=== PATIENT | male | born 1965 | race Caucasian/White ===

== ENCOUNTER 2017-03-08 20:02 | Inpatient (IN) | payer OTHER, BC, MEDICAID ==
[2017-03-08] MEDS: NITROGLYCERIN (SL) 0.4 MG TAB SL ×3 (20:38→21:54)
[2017-03-08] MEDS: ASPIRIN 325 MG TAB PO (20:38)
[2017-03-08 20:53] LABS: ADD MAN DIFF? NO
[2017-03-08 20:55] LABS: BASOPHIL # 0.1 10^3/ul (0.0-0.1); EOSINOPHILS # 0.3 10^3/ul (0.0-0.5); EOSINOPHILS % 3.3 % (0.0-7.0); HEMATOCRIT 40.8 % (42.0-52.0); HEMOGLOBIN 12.9 g/dl (14.0-18.0); LYMPHOCYTES # 1.7 10^3/ul (0.8-2.9); LYMPHOCYTES % 16.5 % (15.0-51.0); MEAN CORPUSCULAR HEMOGLOBIN 27.8 pg (29.0-33.0); MEAN CORPUSCULAR HGB CONC 31.6 g/dl (32.0-37.0); MEAN CORPUSCULAR VOLUME 87.9 fl (82.0-101.0); MEAN PLATELET VOLUME 12.1 fl (7.4-10.4); MONOCYTE # 0.5 10^3/ul (0.3-0.9); MONOCYTES % 4.7 % (0.0-11.0); NEUTROPHIL # 7.6 10^3/ul (1.6-7.5); NEUTROPHILS % 74.3 % (39.0-77.0); PLATELET COUNT 219 10^3/UL (140-415); RED BLOOD COUNT 4.64 10^6/ul (4.70-6.10); RED CELL DISTRIBUTION WIDTH 15.9 % (11.5-14.5)
[2017-03-08 20:55] LABS: WHITE BLOOD COUNT 10.2 10^3/ul (4.8-10.8)
[2017-03-08 21:09] LABS: INR 0.97
[2017-03-08 21:10] LABS: PARTIAL THROMBOPLASTIN TIME 37.5 Sec (25.0-35.0)
[2017-03-08 21:13] LABS: ANION GAP 12 (8-16); BLOOD UREA NITROGEN 46 mg/dl (7-20); CALCIUM 7.9 mg/dl (8.4-10.2); CARBON DIOXIDE 30 mmol/L (21-31); CHLORIDE 98 mmol/L (97-110); CREATININE 3.48 mg/dl (0.61-1.24); GLUCOSE 256 mg/dl (70-220); LIPASE 379 U/L (23-300); POTASSIUM 4.6 mmol/L (3.5-5.1); SODIUM 135 mmol/L (135-144)
[2017-03-08 21:25] LABS: B-TYPE NATRIURETIC PEPTIDE 10700 PG/ML (0-125); TROPONIN-I 0.073 ng/ml (0.00-0.12)
[2017-03-08] MEDS ORDERED: ACETAMINOPHEN 325 MG TAB PO (22:00)
[2017-03-08] MEDS: FUROSEMIDE 40 MG INJ IV (23:10)
[2017-03-09] MEDS ORDERED: NITROGLYCERIN (SL) 0.4 MG TAB SL (02:30)
[2017-03-09] MEDS ORDERED: ONDANSETRON 4 MG INJ IV (02:30)
[2017-03-09] MEDS ORDERED: ALBUTEROL/IPRATROPIUM (NEB) 3 ML AMP HHN (02:30)
[2017-03-09] MEDS ORDERED: NACL 0.9% 3 ML SYG IV (02:30)
[2017-03-09] MEDS: PIPER-TAZO 2.25 GM (PMX) 50 ML IVPB ×3 (03:00→21:14)
[2017-03-09 03:10] LABS: CREATINE KINASE 119 IU/L (23-200)
[2017-03-09 03:21] LABS: CK INDEX 2.7; TROPONIN-I 0.079 ng/ml (0.00-0.12)
[2017-03-09 03:28] LABS: CK-MB 3.26 ng/ml (0.0-2.4)
[2017-03-09] MEDS: ONDANSETRON 4 MG INJ IV (03:44)
[2017-03-09] MEDS: morphine 2 MG INJ IV (03:44)
[2017-03-09] MEDS ORDERED: MAGNESIUM SULFATE 2 GM/50 ML 50 ML (05:23)
[2017-03-09 05:46] LABS: AADO2 Arterial 505.8 mmHg (7.0-24.0); Allen Test ACCEPTAB; Arterial Base Excess -1.6 mmol/L (-3.0-3); Arterial Blood Gas Oxygen Sat 79.5 mmHG (95.0-98.0); Arterial COHb 2.5 % (0.0-3.0); Arterial Fraction of Oxyhgb 77.4 % (93.0-99.0); Arterial MetHb 0.2 % (0.0-1.5); Arterial Total Hemglobin 15.5 g/dl (12.0-18.0); Arterial pCO2 147.7 mmhg (35-45); MODE AMBU BAG
[2017-03-09] MEDS ORDERED: NA BICARBONATE 8.4% 50 ML SYG ×3 (05:54→16:00)
[2017-03-09] MEDS ORDERED: GLUCOSE GEL 15 GRAM TUBE BUCCAL (06:00)
[2017-03-09] MEDS ORDERED: GLUCAGON 1 MG INJ IM (06:00)
[2017-03-09] MEDS ORDERED: FUROSEMIDE 40 MG INJ IV (06:00)
[2017-03-09] MEDS ORDERED: GLUCOSE GEL 15 GRAM TUBE PO ×2 (06:00)
[2017-03-09] MEDS ORDERED: DEXTROSE 50% 50 ML SYRINGE IV ×2 (06:00)
[2017-03-09 06:27] LABS: ADD MAN DIFF? NO
[2017-03-09] MEDS: NA BICARBONATE 8.4% 50 ML SYG IV (06:38)
[2017-03-09 06:44] LABS: BASOPHIL # 0.1 10^3/ul (0.0-0.1); BASOPHILS % 0.9 % (0.0-2.0); EOSINOPHILS # 0.3 10^3/ul (0.0-0.5); EOSINOPHILS % 2.6 % (0.0-7.0); HEMATOCRIT 41.9 % (42.0-52.0); HEMOGLOBIN 13.1 g/dl (14.0-18.0); LYMPHOCYTES # 2.2 10^3/ul (0.8-2.9); LYMPHOCYTES % 17.3 % (15.0-51.0); MEAN CORPUSCULAR HEMOGLOBIN 28.7 pg (29.0-33.0); MEAN CORPUSCULAR HGB CONC 31.3 g/dl (32.0-37.0); MEAN CORPUSCULAR VOLUME 91.9 fl (82.0-101.0); MONOCYTE # 0.5 10^3/ul (0.3-0.9); MONOCYTES % 3.8 % (0.0-11.0); NEUTROPHILS % 71.6 % (39.0-77.0); NUCLEATED RED BLOOD CELLS% 0.3 /100WBC (0.0-0.0); PLATELET COUNT 259 10^3/UL (140-415); RED BLOOD COUNT 4.56 10^6/ul (4.70-6.10); RED CELL DISTRIBUTION WIDTH 15.7 % (11.5-14.5)
[2017-03-09 06:44] LABS: WHITE BLOOD COUNT 12.5 10^3/ul (4.8-10.8)
[2017-03-09 06:45] LABS: AADO2 Arterial 570.1 mmHg (7.0-24.0); Allen Test ACCEPTAB; Arterial Base Excess 1.6 mmol/L (-3.0-3); Arterial Blood Gas Oxygen Sat 86.8 mmHG (95.0-98.0); Arterial COHb 2.2 % (0.0-3.0); Arterial Fraction of Oxyhgb 84.7 % (93.0-99.0); Arterial HCO3 32.4 mmol/L (22.0-26.0); Arterial MetHb 0.2 % (0.0-1.5); Arterial Total Hemglobin 14.1 g/dl (12.0-18.0); Arterial pCO2 84.6 mmhg (35-45); MODE VENT - AC; Site Right Radial
[2017-03-09 07:15] LABS: ALANINE AMINOTRANSFERASE 56 IU/L (13-69); ALBUMIN 2.4 g/dl (3.3-4.9); ALBUMIN/GLOBULIN RATIO 0.92; ALKALINE PHOSPHATASE 66 IU/L (42-121); ANION GAP 15 (8-16); ASPARTATE AMINO TRANSFERASE 59 IU/L (15-46); BILIRUBIN,INDIRECT 0.3 mg/dl (0-1.1); BILIRUBIN,TOTAL 0.3 mg/dl (0.2-1.3); BLOOD UREA NITROGEN 45 mg/dl (7-20); CALCIUM 7.8 mg/dl (8.4-10.2); CARBON DIOXIDE 35 mmol/L (21-31); CHLORIDE 98 mmol/L (97-110); CREATININE 3.66 mg/dl (0.61-1.24); GLUCOSE 249 mg/dl (70-220); MAGNESIUM 2.8 mg/dl (1.7-2.5); POTASSIUM 3.9 mmol/L (3.5-5.1); SODIUM 144 mmol/L (135-144)
[2017-03-09 07:25] LABS: TROPONIN-I 0.262 ng/ml (0.00-0.12)
[2017-03-09 07:43] LABS: LIPASE 391 U/L (23-300)
[2017-03-09] MEDS ORDERED: PROPOFOL 100 ML (07:52)
[2017-03-09] MEDS: PROPOFOL 100 ML IV ×3 (09:03→21:14)
[2017-03-09] MEDS: FAMOTIDINE 20 MG INJ IV (09:04)
[2017-03-09] MEDS: ASPIRIN (EC) 81 MG TAB PO (09:04)
[2017-03-09] MEDS ORDERED: NORepinephrine 8MG/250 ML (PMX 250 ML (09:30)
[2017-03-09 09:57] LABS: CREATINE KINASE 136 IU/L (23-200)
[2017-03-09] MEDS: NORepinephrine 8MG/250 ML (PMX 250 ML IV (10:01)
[2017-03-09 10:09] LABS: CK INDEX 4.7
[2017-03-09 10:17] LABS: CK-MB 6.37 ng/ml (0.0-2.4); TROPONIN-I 0.882 ng/ml (0.00-0.12)
[2017-03-09 10:57] LABS: HEMOGLOBIN A1C 7.4 % (0-5.9)
[2017-03-09 12:35] LABS: AADO2 Arterial 510.4 mmHg (7.0-24.0); Allen Test ACCEPTAB; Arterial Base Excess 4.9 mmol/L (-3.0-3); Arterial Blood Gas Oxygen Sat 94.3 mmHG (95.0-98.0); Arterial COHb 1.1 % (0.0-3.0); Arterial Fraction of Oxyhgb 93.2 % (93.0-99.0); Arterial HCO3 32.2 mmol/L (22.0-26.0); Arterial MetHb 0.1 % (0.0-1.5); Arterial Total Hemglobin 14.1 g/dl (12.0-18.0); Arterial pCO2 59.2 mmhg (35-45); MODE VENT - AC; Site Right Radial
[2017-03-09] MEDS: INSULIN ASPART [NOVOLOG] 3 ML PEN SC ×3 (13:44→21:00)
[2017-03-09] MEDS ORDERED: EPINEPHrine 0.1 MG/ML SYG (16:00)
[2017-03-09 16:53] LABS: HAAIG REFLEX REFLEX FILED
[2017-03-09 17:07] LABS: CREATININE,URINE RANDOM 25.53 mg/dl (20-370)
[2017-03-09 17:07] LABS: SODIUM,URINE RANDOM 140 mmol/L (30-90)
[2017-03-09 18:02] LABS: HEPATITIS B SURFACE ANTIGEN NEGATIVE (NEGATIVE)
[2017-03-09 18:20] LABS: HEPATITIS B CORE ANTIBODY NEGATIVE (NEGATIVE); HEPATITIS C VIRAL ANTIBODY NEGATIVE (NEGATIVE)
[2017-03-09] MEDS: FUROSEMIDE 40 MG INJ IV (18:59)
[2017-03-09 20:13] LABS: CREATININE,URINE RANDOM 25.59 mg/dl (20-370)
[2017-03-09 20:47] LABS: PROTEIN URINE > 600.0 mg/dl (0.0-11.9); PROTEIN/CREAT RATIO 23.44 RATIO
[2017-03-09] MEDS: ATORVASTATIN 80 MG TAB PO (21:14)
[2017-03-09] MEDS: INSULIN GLARGINE [LANtus] 3 ML PEN SC (21:31)
[2017-03-10] MEDS: INSULIN ASPART [NOVOLOG] 3 ML PEN SC ×6 (01:28→21:00)
[2017-03-10] MEDS: FUROSEMIDE 20 MG INJ IV (01:34)
[2017-03-10] MEDS: ALBUMIN HUMAN 25% 100 ML IV (01:34)
[2017-03-10] MEDS: PROPOFOL 100 ML IV ×6 (02:33→23:35)
[2017-03-10 05:30] LABS: ADD MAN DIFF? NO
[2017-03-10] MEDS: PIPER-TAZO 2.25 GM (PMX) 50 ML IVPB ×3 (05:33→21:45)
[2017-03-10 05:46] LABS: WHITE BLOOD COUNT 10.9 10^3/ul (4.8-10.8)
[2017-03-10 05:46] LABS: BASOPHIL # 0.1 10^3/ul (0.0-0.1); BASOPHILS % 0.7 % (0.0-2.0); EOSINOPHILS # 0.1 10^3/ul (0.0-0.5); EOSINOPHILS % 0.8 % (0.0-7.0); HEMATOCRIT 35.6 % (42.0-52.0); HEMOGLOBIN 11.2 g/dl (14.0-18.0); LYMPHOCYTES # 1.8 10^3/ul (0.8-2.9); LYMPHOCYTES % 16.8 % (15.0-51.0); MEAN CORPUSCULAR HGB CONC 31.5 g/dl (32.0-37.0); MONOCYTE # 0.7 10^3/ul (0.3-0.9); MONOCYTES % 6.1 % (0.0-11.0); NEUTROPHIL # 8.2 10^3/ul (1.6-7.5); NEUTROPHILS % 75.2 % (39.0-77.0); PLATELET COUNT 205 10^3/UL (140-415)
[2017-03-10 06:23] LABS: ANION GAP 13 (8-16); BLOOD UREA NITROGEN 67 mg/dl (7-20); CALCIUM 7.8 mg/dl (8.4-10.2); CARBON DIOXIDE 30 mmol/L (21-31); CHLORIDE 101 mmol/L (97-110); CREATININE 6.08 mg/dl (0.61-1.24); GLUCOSE 136 mg/dl (70-220); MAGNESIUM 2.5 mg/dl (1.7-2.5); PHOSPHORUS 6.1 mg/dl (2.5-4.9); POTASSIUM 4.3 mmol/L (3.5-5.1); SODIUM 140 mmol/L (135-144)
[2017-03-10] MEDS: FAMOTIDINE 20 MG INJ IV (08:45)
[2017-03-10] MEDS: ASPIRIN (EC) 81 MG TAB PO (08:45)
[2017-03-10] MEDS ORDERED: METHYLPREDNISOLONE 125 MG INJ IM (11:00)
[2017-03-10] MEDS: HEPARIN 1000 UNITS/ML 10 ML INJ CATHETER (11:59)
[2017-03-10 15:20] LABS: AADO2 Arterial 245.1 mmHg (7.0-24.0); Allen Test ACCEPTAB; Arterial Base Excess 4.5 mmol/L (-3.0-3); Arterial Blood Gas Oxygen Sat 91.3 mmHG (95.0-98.0); Arterial COHb 0.8 % (0.0-3.0); Arterial Fraction of Oxyhgb 90.5 % (93.0-99.0); Arterial HCO3 29.3 mmol/L (22.0-26.0); Arterial MetHb 0.1 % (0.0-1.5); Arterial Total Hemglobin 15.1 g/dl (12.0-18.0); Arterial pCO2 44.1 mmhg (35-45); MODE VENT - AC; Site Right Radial
[2017-03-10] MEDS ORDERED: ETOMIDATE 20 MG INJ (16:00)
[2017-03-10] MEDS: ACCU-CHEK XX (20:03)
[2017-03-10] MEDS: LACTATED RINGER'S 1,000 ML IV (21:03)
[2017-03-10] MEDS: ATORVASTATIN 80 MG TAB PO (21:42)
[2017-03-10] MEDS: INSULIN GLARGINE [LANtus] 3 ML PEN SC (21:44)
[2017-03-11] MEDS: INSULIN ASPART [NOVOLOG] 3 ML PEN SC ×6 (01:00→23:58)
[2017-03-11] MEDS: ACCU-CHEK XX ×2 (01:03→22:05)
[2017-03-11] MEDS: PROPOFOL 100 ML IV ×7 (04:46→23:59)
[2017-03-11] MEDS: PIPER-TAZO 2.25 GM (PMX) 50 ML IVPB ×3 (05:30→22:08)
[2017-03-11 05:55] LABS: ADD MAN DIFF? NO; HAAIG REFLEX REFLEX FILED
[2017-03-11 06:20] LABS: WHITE BLOOD COUNT 9.8 10^3/ul (4.8-10.8)
[2017-03-11 06:20] LABS: BASOPHIL # 0.1 10^3/ul (0.0-0.1); BASOPHILS % 0.7 % (0.0-2.0); EOSINOPHILS # 0.5 10^3/ul (0.0-0.5); HEMATOCRIT 34.6 % (42.0-52.0); HEMOGLOBIN 11.1 g/dl (14.0-18.0); LYMPHOCYTES # 1.6 10^3/ul (0.8-2.9); LYMPHOCYTES % 16.3 % (15.0-51.0); MEAN CORPUSCULAR HEMOGLOBIN 28.5 pg (29.0-33.0); MEAN CORPUSCULAR HGB CONC 32.1 g/dl (32.0-37.0); MEAN CORPUSCULAR VOLUME 88.9 fl (82.0-101.0); MEAN PLATELET VOLUME 12.6 fl (7.4-10.4); MONOCYTE # 0.7 10^3/ul (0.3-0.9); MONOCYTES % 6.9 % (0.0-11.0); NEUTROPHIL # 6.9 10^3/ul (1.6-7.5); NEUTROPHILS % 70.7 % (39.0-77.0); PLATELET COUNT 177 10^3/UL (140-415); RED BLOOD COUNT 3.89 10^6/ul (4.70-6.10); RED CELL DISTRIBUTION WIDTH 16.2 % (11.5-14.5)
[2017-03-11 07:02] LABS: ALANINE AMINOTRANSFERASE 38 IU/L (13-69); ALBUMIN 2.7 g/dl (3.3-4.9); ALBUMIN/GLOBULIN RATIO 1.03; ALKALINE PHOSPHATASE 49 IU/L (42-121); ANION GAP 16 (8-16); ASPARTATE AMINO TRANSFERASE 15 IU/L (15-46); BILIRUBIN,INDIRECT 0.3 mg/dl (0-1.1); BILIRUBIN,TOTAL 0.3 mg/dl (0.2-1.3); BLOOD UREA NITROGEN 67 mg/dl (7-20); CALCIUM 8.2 mg/dl (8.4-10.2); CARBON DIOXIDE 27 mmol/L (21-31); CHLORIDE 103 mmol/L (97-110); CREATININE 7.38 mg/dl (0.61-1.24); GLUCOSE 102 mg/dl (70-220); POTASSIUM 3.9 mmol/L (3.5-5.1); SODIUM 142 mmol/L (135-144); TOTAL PROTEIN 5.3 g/dl (6.1-8.1)
[2017-03-11 07:06] LABS: ADD UMIC YES; UR AMORPHOUS CRYSTAL FEW /HPF (NONE SEEN); UR ASCORBIC ACID NEGATIVE (NEGATIVE); UR BACTERIA FEW /HPF (NONE SEEN); UR BILIRUBIN (Dip) NEGATIVE (NEGATIVE); UR BLOOD (Dip) 3+ mg/dL (NEGATIVE); UR CLARITY CLOUDY (CLEAR); UR COLOR YELLOW (YELLOW); UR GLUCOSE (Dip) 1+ mg/dL (NEGATIVE); UR KETONES (Dip) NEGATIVE (NEGATIVE); UR LEUKOCYTE ESTERASE (Dip) 3+ Leu/ul (NEGATIVE); UR NITRITE (Dip) NEGATIVE (NEGATIVE); UR NONSQUAMOUS EPITHELIAL CELL 1 /HPF (NONE SEEN); UR RBC 132 /HPF (0-5); UR SPECIFIC GRAVITY (Dip) 1.013 (1.003-1.030); UR TOTAL PROTEIN (Dip) 3+ mg/dl (NEGATIVE); UR UROBILINOGEN (Dip) NEGATIVE (NEGATIVE); UR WBC > 182 /HPF (0-5)
[2017-03-11 07:34] LABS: HEPATITIS B SURFACE ANTIGEN NEGATIVE (NEGATIVE)
[2017-03-11 07:52] LABS: HEPATITIS B CORE ANTIBODY NEGATIVE (NEGATIVE); HEPATITIS C VIRAL ANTIBODY NEGATIVE (NEGATIVE)
[2017-03-11] MEDS: FAMOTIDINE 20 MG INJ IV (08:17)
[2017-03-11] MEDS: ASPIRIN (EC) 81 MG TAB PO (08:18)
[2017-03-11 10:24] LABS: Allen Test ACCEPTAB; Arterial Base Excess 3.4 mmol/L (-3.0-3); Arterial Blood Gas Oxygen Sat 95.3 mmHG (95.0-98.0); Arterial COHb 0.4 % (0.0-3.0); Arterial Fraction of Oxyhgb 94.8 % (93.0-99.0); Arterial HCO3 28.3 mmol/L (22.0-26.0); Arterial MetHb 0.1 % (0.0-1.5); Arterial Total Hemglobin 13.3 g/dl (12.0-18.0); Arterial pCO2 44.2 mmhg (35-45); MODE VENT - AC; Site Right Radial
[2017-03-11] MEDS: ATORVASTATIN 80 MG TAB PO (20:19)
[2017-03-11] MEDS: FAMOTIDINE 20 MG TAB NGT (20:19)
[2017-03-11] MEDS: INSULIN GLARGINE [LANtus] 3 ML PEN SC (20:22)
[2017-03-12] MEDS: PROPOFOL 100 ML IV ×5 (03:37→21:34)
[2017-03-12] MEDS: PIPER-TAZO 2.25 GM (PMX) 50 ML IVPB ×3 (05:52→21:21)
[2017-03-12] MEDS: INSULIN ASPART [NOVOLOG] 3 ML PEN SC ×4 (05:56→23:50)
[2017-03-12 06:59] LABS: ADD MAN DIFF? NO
[2017-03-12 07:05] LABS: BASOPHIL # 0.1 10^3/ul (0.0-0.1); BASOPHILS % 0.9 % (0.0-2.0); EOSINOPHILS # 0.5 10^3/ul (0.0-0.5); EOSINOPHILS % 6.1 % (0.0-7.0); HEMATOCRIT 33.6 % (42.0-52.0); HEMOGLOBIN 10.6 g/dl (14.0-18.0); LYMPHOCYTES # 1.2 10^3/ul (0.8-2.9); LYMPHOCYTES % 14.3 % (15.0-51.0); MEAN CORPUSCULAR HEMOGLOBIN 27.9 pg (29.0-33.0); MEAN CORPUSCULAR HGB CONC 31.5 g/dl (32.0-37.0); MEAN CORPUSCULAR VOLUME 88.4 fl (82.0-101.0); MEAN PLATELET VOLUME 12.1 fl (7.4-10.4); MONOCYTE # 0.6 10^3/ul (0.3-0.9); MONOCYTES % 6.8 % (0.0-11.0); NEUTROPHIL # 6.2 10^3/ul (1.6-7.5); NEUTROPHILS % 71.7 % (39.0-77.0); PLATELET COUNT 166 10^3/UL (140-415); RED CELL DISTRIBUTION WIDTH 16.4 % (11.5-14.5)
[2017-03-12 07:05] LABS: WHITE BLOOD COUNT 8.7 10^3/ul (4.8-10.8)
[2017-03-12 09:01] LABS: ALANINE AMINOTRANSFERASE 36 IU/L (13-69); ALBUMIN 2.6 g/dl (3.3-4.9); ALBUMIN/GLOBULIN RATIO 0.89; ALKALINE PHOSPHATASE 66 IU/L (42-121); ANION GAP 18 (8-16); ASPARTATE AMINO TRANSFERASE 11 IU/L (15-46); BILIRUBIN,INDIRECT 0.2 mg/dl (0-1.1); BILIRUBIN,TOTAL 0.2 mg/dl (0.2-1.3); BLOOD UREA NITROGEN 64 mg/dl (7-20); CALCIUM 8.1 mg/dl (8.4-10.2); CARBON DIOXIDE 26 mmol/L (21-31); CHLORIDE 101 mmol/L (97-110); CREATININE 9.28 mg/dl (0.61-1.24); GLUCOSE 87 mg/dl (70-220); POTASSIUM 3.9 mmol/L (3.5-5.1); SODIUM 141 mmol/L (135-144); TOTAL PROTEIN 5.5 g/dl (6.1-8.1)
[2017-03-12] MEDS: FAMOTIDINE 20 MG TAB NGT ×2 (10:15→20:54)
[2017-03-12] MEDS: ASPIRIN (EC) 81 MG TAB PO (10:15)
[2017-03-12 10:50] LABS: AADO2 Arterial 169.7 mmHg (7.0-24.0); Allen Test ACCEPTAB; Arterial Base Excess -0.1 mmol/L (-3.0-3); Arterial Blood Gas Oxygen Sat 94.3 mmHG (95.0-98.0); Arterial COHb 0.1 % (0.0-3.0); Arterial Fraction of Oxyhgb 94.1 % (93.0-99.0); Arterial MetHb 0.1 % (0.0-1.5); Arterial Total Hemglobin 11.6 g/dl (12.0-18.0); Arterial pCO2 37.1 mmhg (35-45); MODE VENT - AC; Site Right Radial
[2017-03-12] MEDS: ATORVASTATIN 80 MG TAB PO (20:54)
[2017-03-12] MEDS: INSULIN GLARGINE [LANtus] 3 ML PEN SC (21:26)
[2017-03-13] MEDS: PROPOFOL 100 ML IV ×6 (01:32→23:44)
[2017-03-13] MEDS: ACCU-CHEK XX (02:00)
[2017-03-13] MEDS: PIPER-TAZO 2.25 GM (PMX) 50 ML IVPB ×3 (05:23→21:05)
[2017-03-13] MEDS: INSULIN ASPART [NOVOLOG] 3 ML PEN SC ×4 (05:27→20:49)
[2017-03-13 05:49] LABS: ADD MAN DIFF? NO
[2017-03-13 06:09] LABS: BASOPHIL # 0.1 10^3/ul (0.0-0.1); EOSINOPHILS # 0.5 10^3/ul (0.0-0.5); EOSINOPHILS % 6.3 % (0.0-7.0); HEMATOCRIT 33.1 % (42.0-52.0); HEMOGLOBIN 10.4 g/dl (14.0-18.0); LYMPHOCYTES # 1.6 10^3/ul (0.8-2.9); LYMPHOCYTES % 21.8 % (15.0-51.0); MEAN CORPUSCULAR HEMOGLOBIN 28.2 pg (29.0-33.0); MEAN CORPUSCULAR HGB CONC 31.4 g/dl (32.0-37.0); MEAN CORPUSCULAR VOLUME 89.7 fl (82.0-101.0); MEAN PLATELET VOLUME 12.3 fl (7.4-10.4); MONOCYTE # 0.6 10^3/ul (0.3-0.9); MONOCYTES % 8.3 % (0.0-11.0); NEUTROPHIL # 4.5 10^3/ul (1.6-7.5); NEUTROPHILS % 62.3 % (39.0-77.0); PLATELET COUNT 164 10^3/UL (140-415); RED BLOOD COUNT 3.69 10^6/ul (4.70-6.10)
[2017-03-13 06:09] LABS: WHITE BLOOD COUNT 7.3 10^3/ul (4.8-10.8)
[2017-03-13 06:17] LABS: ALANINE AMINOTRANSFERASE 33 IU/L (13-69); ALBUMIN 2.8 g/dl (3.3-4.9); ALBUMIN/GLOBULIN RATIO 1.03; ALKALINE PHOSPHATASE 65 IU/L (42-121); ANION GAP 22 (8-16); ASPARTATE AMINO TRANSFERASE 12 IU/L (15-46); BLOOD UREA NITROGEN 81 mg/dl (7-20); CALCIUM 7.6 mg/dl (8.4-10.2); CARBON DIOXIDE 25 mmol/L (21-31); CHLORIDE 101 mmol/L (97-110); CREATININE 11.41 mg/dl (0.61-1.24); GLUCOSE 70 mg/dl (70-220); POTASSIUM 4.6 mmol/L (3.5-5.1); SODIUM 143 mmol/L (135-144); TOTAL PROTEIN 5.5 g/dl (6.1-8.1)
[2017-03-13] MEDS: ASPIRIN (EC) 81 MG TAB PO (09:20)
[2017-03-13] MEDS: FAMOTIDINE 20 MG TAB NGT (09:20)
[2017-03-13 14:38] LABS: AADO2 Arterial 372.6 mmHg (7.0-24.0); Allen Test ACCEPTAB; Arterial Base Excess -4.4 mmol/L (-3.0-3); Arterial Blood Gas Oxygen Sat 94.2 mmHG (95.0-98.0); Arterial COHb 0.3 % (0.0-3.0); Arterial Fraction of Oxyhgb 93.8 % (93.0-99.0); Arterial HCO3 21.6 mmol/L (22.0-26.0); Arterial MetHb 0.1 % (0.0-1.5); Arterial Total Hemglobin 11.8 g/dl (12.0-18.0); Arterial pCO2 43.2 mmhg (35-45); MODE VENT - AC; Site Right Radial
[2017-03-13] MEDS: LOSARTAN 50 MG TAB NGT (18:38)
[2017-03-13] MEDS: ATORVASTATIN 80 MG TAB PO (20:46)
[2017-03-13] MEDS: INSULIN GLARGINE [LANtus] 3 ML PEN SC (20:52)
[2017-03-14] MEDS: INSULIN ASPART [NOVOLOG] 3 ML PEN SC ×6 (01:00→20:25)
[2017-03-14] MEDS: ACCU-CHEK XX (01:30)
[2017-03-14] MEDS: PROPOFOL 100 ML IV ×4 (03:39→19:50)
[2017-03-14 05:47] LABS: ADD MAN DIFF? NO
[2017-03-14] MEDS: PIPER-TAZO 2.25 GM (PMX) 50 ML IVPB ×3 (05:50→21:39)
[2017-03-14 05:58] LABS: BASOPHIL # 0.1 10^3/ul (0.0-0.1); EOSINOPHILS # 0.5 10^3/ul (0.0-0.5); EOSINOPHILS % 7.1 % (0.0-7.0); HEMATOCRIT 32.4 % (42.0-52.0); HEMOGLOBIN 10.4 g/dl (14.0-18.0); LYMPHOCYTES # 0.9 10^3/ul (0.8-2.9); LYMPHOCYTES % 12.9 % (15.0-51.0); MEAN CORPUSCULAR HEMOGLOBIN 28.2 pg (29.0-33.0); MEAN CORPUSCULAR HGB CONC 32.1 g/dl (32.0-37.0); MEAN CORPUSCULAR VOLUME 87.8 fl (82.0-101.0); MEAN PLATELET VOLUME 12.1 fl (7.4-10.4); MONOCYTE # 0.6 10^3/ul (0.3-0.9); MONOCYTES % 8.9 % (0.0-11.0); NEUTROPHIL # 5.1 10^3/ul (1.6-7.5); NEUTROPHILS % 69.7 % (39.0-77.0); PLATELET COUNT 160 10^3/UL (140-415); RED BLOOD COUNT 3.69 10^6/ul (4.70-6.10); RED CELL DISTRIBUTION WIDTH 15.8 % (11.5-14.5)
[2017-03-14 05:58] LABS: WHITE BLOOD COUNT 7.2 10^3/ul (4.8-10.8)
[2017-03-14 06:41] LABS: ANION GAP 20 (8-16); BLOOD UREA NITROGEN 73 mg/dl (7-20); CALCIUM 7.7 mg/dl (8.4-10.2); CARBON DIOXIDE 27 mmol/L (21-31); CHLORIDE 93 mmol/L (97-110); CREATININE 11.15 mg/dl (0.61-1.24); GLUCOSE 117 mg/dl (70-220); POTASSIUM 4.5 mmol/L (3.5-5.1); SODIUM 135 mmol/L (135-144)
[2017-03-14] MEDS: FAMOTIDINE 20 MG TAB NGT (09:02)
[2017-03-14] MEDS: ASPIRIN (EC) 81 MG TAB PO (09:03)
[2017-03-14] MEDS: LOSARTAN 50 MG TAB NGT (09:03)
[2017-03-14] MEDS: ATORVASTATIN 80 MG TAB PO (20:16)
[2017-03-14] MEDS: INSULIN GLARGINE [LANtus] 3 ML PEN SC (20:24)
[2017-03-15] MEDS: PROPOFOL 100 ML IV ×5 (00:14→22:43)
[2017-03-15] MEDS: INSULIN ASPART [NOVOLOG] 3 ML PEN SC ×6 (00:42→20:41)
[2017-03-15] MEDS: ACCU-CHEK XX (02:00)
[2017-03-15] MEDS: PIPER-TAZO 2.25 GM (PMX) 50 ML IVPB ×3 (05:26→22:29)
[2017-03-15 05:31] LABS: ADD MAN DIFF? NO
[2017-03-15 05:36] LABS: WHITE BLOOD COUNT 7.5 10^3/ul (4.8-10.8)
[2017-03-15 05:36] LABS: BASOPHILS % 0.5 % (0.0-2.0); EOSINOPHILS # 0.4 10^3/ul (0.0-0.5); EOSINOPHILS % 5.3 % (0.0-7.0); HEMATOCRIT 32.1 % (42.0-52.0); HEMOGLOBIN 10.4 g/dl (14.0-18.0); LYMPHOCYTES # 1.1 10^3/ul (0.8-2.9); MEAN CORPUSCULAR HGB CONC 32.4 g/dl (32.0-37.0); MEAN CORPUSCULAR VOLUME 86.5 fl (82.0-101.0); MEAN PLATELET VOLUME 12.2 fl (7.4-10.4); MONOCYTE # 0.7 10^3/ul (0.3-0.9); MONOCYTES % 9.2 % (0.0-11.0); NEUTROPHIL # 5.3 10^3/ul (1.6-7.5); NEUTROPHILS % 70.7 % (39.0-77.0); PLATELET COUNT 183 10^3/UL (140-415); RED BLOOD COUNT 3.71 10^6/ul (4.70-6.10); RED CELL DISTRIBUTION WIDTH 15.6 % (11.5-14.5)
[2017-03-15 06:39] LABS: ALANINE AMINOTRANSFERASE 33 IU/L (13-69); ALKALINE PHOSPHATASE 75 IU/L (42-121); ANION GAP 20 (8-16); ASPARTATE AMINO TRANSFERASE 36 IU/L (15-46); BLOOD UREA NITROGEN 76 mg/dl (7-20); CALCIUM 7.6 mg/dl (8.4-10.2); CARBON DIOXIDE 27 mmol/L (21-31); CHLORIDE 93 mmol/L (97-110); CREATININE 11.83 mg/dl (0.61-1.24); GLUCOSE 121 mg/dl (70-220); POTASSIUM 4.4 mmol/L (3.5-5.1); SODIUM 136 mmol/L (135-144)
[2017-03-15 08:19] LABS: AADO2 Arterial 374.5 mmHg (7.0-24.0); Allen Test ACCEPTAB; Arterial Base Excess -0.4 mmol/L (-3.0-3); Arterial Blood Gas Oxygen Sat 94.3 mmHG (95.0-98.0); Arterial COHb 0.3 % (0.0-3.0); Arterial Fraction of Oxyhgb 93.9 % (93.0-99.0); Arterial MetHb 0.1 % (0.0-1.5); Arterial Total Hemglobin 11.8 g/dl (12.0-18.0); Arterial pCO2 44.2 mmhg (35-45); MODE VENT - AC; Site Right Radial
[2017-03-15] MEDS: LOSARTAN 50 MG TAB NGT (09:00)
[2017-03-15] MEDS: ASPIRIN (EC) 81 MG TAB PO (09:25)
[2017-03-15] MEDS: FAMOTIDINE 20 MG TAB NGT (09:25)
[2017-03-15] MEDS: FENTAnyl (DRIP) 1000 mcg/100mL 100 ML IV (09:43)
[2017-03-15] MEDS ORDERED: ALBUMIN HUMAN 25% 100 ML (15:41)
[2017-03-15] MEDS: ALBUMIN HUMAN 25% 100 ML IV (16:06)
[2017-03-15] MEDS: ATORVASTATIN 80 MG TAB PO (20:40)
[2017-03-15] MEDS: INSULIN GLARGINE [LANtus] 3 ML PEN SC (20:46)
[2017-03-15] MEDS: HEPARIN 5,000 UNIT/0.5 ML VIAL SC (20:48)
[2017-03-16] MEDS: INSULIN ASPART [NOVOLOG] 3 ML PEN SC ×6 (01:00→21:00)
[2017-03-16] MEDS: ACCU-CHEK XX (02:11)
[2017-03-16 05:41] LABS: ADD MAN DIFF? NO
[2017-03-16] MEDS: PIPER-TAZO 2.25 GM (PMX) 50 ML IVPB ×3 (05:50→21:38)
[2017-03-16 05:54] LABS: BASOPHILS % 0.5 % (0.0-2.0); EOSINOPHILS # 0.5 10^3/ul (0.0-0.5); EOSINOPHILS % 6.6 % (0.0-7.0); HEMATOCRIT 31.7 % (42.0-52.0); HEMOGLOBIN 10.2 g/dl (14.0-18.0); LYMPHOCYTES # 1.1 10^3/ul (0.8-2.9); LYMPHOCYTES % 14.4 % (15.0-51.0); MEAN CORPUSCULAR HEMOGLOBIN 28.2 pg (29.0-33.0); MEAN CORPUSCULAR HGB CONC 32.2 g/dl (32.0-37.0); MEAN CORPUSCULAR VOLUME 87.6 fl (82.0-101.0); MONOCYTE # 0.7 10^3/ul (0.3-0.9); MONOCYTES % 9.2 % (0.0-11.0); NEUTROPHILS % 68.9 % (39.0-77.0); PLATELET COUNT 184 10^3/UL (140-415); RED BLOOD COUNT 3.62 10^6/ul (4.70-6.10); RED CELL DISTRIBUTION WIDTH 15.4 % (11.5-14.5)
[2017-03-16 05:54] LABS: WHITE BLOOD COUNT 7.3 10^3/ul (4.8-10.8)
[2017-03-16 06:29] LABS: ANION GAP 24 (8-16); BLOOD UREA NITROGEN 72 mg/dl (7-20); CALCIUM 8.3 mg/dl (8.4-10.2); CARBON DIOXIDE 28 mmol/L (21-31); CHLORIDE 93 mmol/L (97-110); CREATININE 12.33 mg/dl (0.61-1.24); GLUCOSE 107 mg/dl (70-220); POTASSIUM 4.5 mmol/L (3.5-5.1); SODIUM 140 mmol/L (135-144)
[2017-03-16] MEDS: PROPOFOL 100 ML IV ×4 (07:43→22:49)
[2017-03-16] MEDS: LOSARTAN 50 MG TAB NGT (09:00)
[2017-03-16 09:03] LABS: AADO2 Arterial 371.1 mmHg (7.0-24.0); Allen Test ACCEPTAB; Arterial Base Excess 0.9 mmol/L (-3.0-3); Arterial Blood Gas Oxygen Sat 93.1 mmHG (95.0-98.0); Arterial COHb 0.3 % (0.0-3.0); Arterial Fraction of Oxyhgb 92.6 % (93.0-99.0); Arterial HCO3 27.3 mmol/L (22.0-26.0); Arterial MetHb 0.2 % (0.0-1.5); Arterial pCO2 51.4 mmhg (35-45); MODE VENT - AC; Site Right Radial
[2017-03-16] MEDS: ASPIRIN (EC) 81 MG TAB PO (09:18)
[2017-03-16] MEDS: FAMOTIDINE 20 MG TAB NGT (09:18)
[2017-03-16] MEDS: HEPARIN 5,000 UNIT/0.5 ML VIAL SC ×2 (09:20→21:29)
[2017-03-16] MEDS: FENTAnyl (DRIP) 1000 mcg/100mL 100 ML IV (13:35)
[2017-03-16] MEDS: ATORVASTATIN 80 MG TAB PO (21:18)
[2017-03-16] MEDS: INSULIN GLARGINE [LANtus] 3 ML PEN SC (21:31)
[2017-03-17] MEDS: INSULIN ASPART [NOVOLOG] 3 ML PEN SC ×6 (01:00→20:33)
[2017-03-17] MEDS: ACCU-CHEK XX (02:00)
[2017-03-17] MEDS: PROPOFOL 100 ML IV ×4 (05:19→22:09)
[2017-03-17] MEDS: PIPER-TAZO 2.25 GM (PMX) 50 ML IVPB ×3 (05:32→22:09)
[2017-03-17 05:33] LABS: ADD MAN DIFF? NO
[2017-03-17 05:36] LABS: BASOPHILS % 0.5 % (0.0-2.0); EOSINOPHILS # 0.5 10^3/ul (0.0-0.5); EOSINOPHILS % 6.9 % (0.0-7.0); HEMATOCRIT 34.1 % (42.0-52.0); HEMOGLOBIN 10.5 g/dl (14.0-18.0); LYMPHOCYTES # 0.9 10^3/ul (0.8-2.9); LYMPHOCYTES % 11.3 % (15.0-51.0); MEAN CORPUSCULAR HEMOGLOBIN 27.6 pg (29.0-33.0); MEAN CORPUSCULAR HGB CONC 30.8 g/dl (32.0-37.0); MEAN CORPUSCULAR VOLUME 89.5 fl (82.0-101.0); MEAN PLATELET VOLUME 11.9 fl (7.4-10.4); MONOCYTE # 0.8 10^3/ul (0.3-0.9); MONOCYTES % 9.9 % (0.0-11.0); NEUTROPHIL # 5.4 10^3/ul (1.6-7.5); PLATELET COUNT 215 10^3/UL (140-415); RED BLOOD COUNT 3.81 10^6/ul (4.70-6.10); RED CELL DISTRIBUTION WIDTH 15.4 % (11.5-14.5)
[2017-03-17 05:36] LABS: WHITE BLOOD COUNT 7.5 10^3/ul (4.8-10.8)
[2017-03-17 06:17] LABS: ANION GAP 20 (8-16); BLOOD UREA NITROGEN 69 mg/dl (7-20); CALCIUM 8.7 mg/dl (8.4-10.2); CARBON DIOXIDE 26 mmol/L (21-31); CHLORIDE 100 mmol/L (97-110); CREATININE 12.04 mg/dl (0.61-1.24); GLUCOSE 122 mg/dl (70-220); POTASSIUM 4.5 mmol/L (3.5-5.1); SODIUM 141 mmol/L (135-144)
[2017-03-17] MEDS: ASPIRIN (EC) 81 MG TAB PO (09:24)
[2017-03-17] MEDS: FAMOTIDINE 20 MG TAB NGT (09:24)
[2017-03-17] MEDS: LOSARTAN 50 MG TAB NGT (09:31)
[2017-03-17] MEDS: HEPARIN 5,000 UNIT/0.5 ML VIAL SC ×2 (09:42→20:50)
[2017-03-17 10:02] LABS: AADO2 Arterial 388.9 mmHg (7.0-24.0); Allen Test ACCEPTAB; Arterial Base Excess -1.1 mmol/L (-3.0-3); Arterial Blood Gas Oxygen Sat 88.8 mmHG (95.0-98.0); Arterial COHb 0.1 % (0.0-3.0); Arterial Fraction of Oxyhgb 88.5 % (93.0-99.0); Arterial MetHb 0.2 % (0.0-1.5); Arterial Total Hemglobin 11.9 g/dl (12.0-18.0); Arterial pCO2 47.7 mmhg (35-45); MODE VENT - AC; Site Right Radial
[2017-03-17] MEDS: FENTAnyl (DRIP) 1000 mcg/100mL 100 ML IV (17:03)
[2017-03-17] MEDS: ATORVASTATIN 80 MG TAB PO (20:30)
[2017-03-17] MEDS: INSULIN GLARGINE [LANtus] 3 ML PEN SC (20:47)
[2017-03-18] MEDS: INSULIN ASPART [NOVOLOG] 3 ML PEN SC ×6 (01:00→20:27)
[2017-03-18] MEDS: ACCU-CHEK XX (02:00)
[2017-03-18] MEDS: PROPOFOL 100 ML IV ×4 (04:24→22:45)
[2017-03-18] MEDS: PIPER-TAZO 2.25 GM (PMX) 50 ML IVPB ×3 (06:02→22:45)
[2017-03-18 06:43] LABS: ADD MAN DIFF? NO
[2017-03-18 06:52] LABS: WHITE BLOOD COUNT 7.7 10^3/ul (4.8-10.8)
[2017-03-18 06:52] LABS: BASOPHIL # 0.1 10^3/ul (0.0-0.1); BASOPHILS % 0.7 % (0.0-2.0); EOSINOPHILS # 0.5 10^3/ul (0.0-0.5); EOSINOPHILS % 6.8 % (0.0-7.0); HEMATOCRIT 33.1 % (42.0-52.0); HEMOGLOBIN 10.5 g/dl (14.0-18.0); LYMPHOCYTES # 1.2 10^3/ul (0.8-2.9); LYMPHOCYTES % 15.1 % (15.0-51.0); MEAN CORPUSCULAR HEMOGLOBIN 28.4 pg (29.0-33.0); MEAN CORPUSCULAR HGB CONC 31.7 g/dl (32.0-37.0); MEAN CORPUSCULAR VOLUME 89.5 fl (82.0-101.0); MEAN PLATELET VOLUME 12.1 fl (7.4-10.4); MONOCYTE # 0.8 10^3/ul (0.3-0.9); MONOCYTES % 10.4 % (0.0-11.0); NEUTROPHIL # 5.1 10^3/ul (1.6-7.5); NEUTROPHILS % 66.6 % (39.0-77.0); PLATELET COUNT 227 10^3/UL (140-415); RED CELL DISTRIBUTION WIDTH 15.6 % (11.5-14.5)
[2017-03-18 07:25] LABS: ANION GAP 23 (8-16); BLOOD UREA NITROGEN 81 mg/dl (7-20); CALCIUM 8.9 mg/dl (8.4-10.2); CARBON DIOXIDE 25 mmol/L (21-31); CHLORIDE 99 mmol/L (97-110); GLUCOSE 109 mg/dl (70-220); POTASSIUM 4.4 mmol/L (3.5-5.1); SODIUM 143 mmol/L (135-144)
[2017-03-18 08:32] LABS: CREATININE 13.93 mg/dl (0.61-1.24)
[2017-03-18] MEDS: LOSARTAN 50 MG TAB NGT (09:13)
[2017-03-18] MEDS: ASPIRIN (EC) 81 MG TAB PO (09:13)
[2017-03-18] MEDS: FAMOTIDINE 20 MG TAB NGT (09:13)
[2017-03-18] MEDS: HEPARIN 5,000 UNIT/0.5 ML VIAL SC ×2 (09:17→20:46)
[2017-03-18 09:42] LABS: AADO2 Arterial 303.1 mmHg (7.0-24.0); Allen Test ACCEPTAB; Arterial Base Excess -1.1 mmol/L (-3.0-3); Arterial Blood Gas Oxygen Sat 91.5 mmHG (95.0-98.0); Arterial COHb 0.3 % (0.0-3.0); Arterial HCO3 25.6 mmol/L (22.0-26.0); Arterial MetHb 0.2 % (0.0-1.5); MODE VENT - AC; Site Right Radial
[2017-03-18] MEDS: HEPARIN 1000 UNITS/ML 10 ML INJ CATHETER (11:00)
[2017-03-18] MEDS: ATORVASTATIN 80 MG TAB PO (20:28)
[2017-03-18] MEDS: INSULIN GLARGINE [LANtus] 3 ML PEN SC (20:47)
[2017-03-19] MEDS: INSULIN ASPART [NOVOLOG] 3 ML PEN SC ×5 (01:00→17:16)
[2017-03-19] MEDS: ACCU-CHEK XX (02:00)
[2017-03-19 06:32] LABS: ADD MAN DIFF? NO
[2017-03-19] MEDS: PIPER-TAZO 2.25 GM (PMX) 50 ML IVPB ×3 (06:35→21:37)
[2017-03-19 06:39] LABS: BASOPHILS % 0.5 % (0.0-2.0); EOSINOPHILS # 0.4 10^3/ul (0.0-0.5); EOSINOPHILS % 5.6 % (0.0-7.0); HEMATOCRIT 32.4 % (42.0-52.0); HEMOGLOBIN 10.5 g/dl (14.0-18.0); LYMPHOCYTES # 1.2 10^3/ul (0.8-2.9); LYMPHOCYTES % 15.4 % (15.0-51.0); MEAN CORPUSCULAR HEMOGLOBIN 28.5 pg (29.0-33.0); MEAN CORPUSCULAR HGB CONC 32.4 g/dl (32.0-37.0); MEAN CORPUSCULAR VOLUME 87.8 fl (82.0-101.0); MONOCYTE # 0.8 10^3/ul (0.3-0.9); MONOCYTES % 10.2 % (0.0-11.0); NEUTROPHIL # 5.2 10^3/ul (1.6-7.5); PLATELET COUNT 245 10^3/UL (140-415); RED BLOOD COUNT 3.69 10^6/ul (4.70-6.10); RED CELL DISTRIBUTION WIDTH 15.5 % (11.5-14.5)
[2017-03-19 06:39] LABS: WHITE BLOOD COUNT 7.7 10^3/ul (4.8-10.8)
[2017-03-19 07:34] LABS: ANION GAP 25 (8-16); BLOOD UREA NITROGEN 74 mg/dl (7-20); CALCIUM 9.2 mg/dl (8.4-10.2); CARBON DIOXIDE 25 mmol/L (21-31); CHLORIDE 98 mmol/L (97-110); CREATININE 13.73 mg/dl (0.61-1.24); GLUCOSE 99 mg/dl (70-220); POTASSIUM 4.4 mmol/L (3.5-5.1); SODIUM 144 mmol/L (135-144)
[2017-03-19] MEDS: FENTAnyl (DRIP) 1000 mcg/100mL 100 ML IV (07:37)
[2017-03-19] MEDS: PROPOFOL 100 ML IV ×2 (08:03→15:08)
[2017-03-19 08:35] LABS: AADO2 Arterial 239.5 mmHg (7.0-24.0); Allen Test ACCEPTAB; Arterial Base Excess -1.5 mmol/L (-3.0-3); Arterial Blood Gas Oxygen Sat 93.1 mmHG (95.0-98.0); Arterial COHb 0.1 % (0.0-3.0); Arterial Fraction of Oxyhgb 92.8 % (93.0-99.0); Arterial HCO3 23.7 mmol/L (22.0-26.0); Arterial MetHb 0.2 % (0.0-1.5); Arterial Total Hemglobin 11.5 g/dl (12.0-18.0); Arterial pCO2 41.7 mmhg (35-45); MODE VENT - AC; Site UAL
[2017-03-19] MEDS: HEPARIN 5,000 UNIT/0.5 ML VIAL SC ×2 (08:48→20:58)
[2017-03-19] MEDS: ASPIRIN (EC) 81 MG TAB PO (08:48)
[2017-03-19] MEDS: LOSARTAN 50 MG TAB NGT (08:48)
[2017-03-19] MEDS: FAMOTIDINE 20 MG TAB NGT (08:48)
[2017-03-19] MEDS ORDERED: MIDAZOLAM 1 MG/ML 2 ML INJ (12:58)
[2017-03-19] MEDS ORDERED: ROCURONIUM 50 MG INJ (12:58)
[2017-03-19] MEDS ORDERED: CEFAZOLIN 1 GM INJ (13:35)
[2017-03-19] MEDS: HEPARIN 1000 UNITS/ML 10 ML INJ (13:37)
[2017-03-19] MEDS ORDERED: FENTAnyl 50 MCG/ML VIAL (13:38)
[2017-03-19] MEDS ORDERED: hydrALAzine 20 MG INJ (13:42)
[2017-03-19] MEDS ORDERED: ONDANSETRON 4 MG INJ (13:44)
[2017-03-19] MEDS ORDERED: NORepinephrine 8MG/250 ML (PMX 250 ML IV (20:30)
[2017-03-19] MEDS: INSULIN GLARGINE [LANtus] 3 ML PEN SC (20:59)
[2017-03-19] MEDS: ATORVASTATIN 80 MG TAB PO (21:00)
[2017-03-19] MEDS ORDERED: PHENYLephrine 80 MG in DEXTROSE 5% 242 ML IV (21:30)
[2017-03-20] MEDS ORDERED: DOPamine 1,600 MG in DEXTROSE 5% 210 ML IV (01:00)
[2017-03-20] MEDS: PROPOFOL 100 ML IV ×6 (01:02→20:45)
[2017-03-20] MEDS: hydrALAzine 20 MG INJ IV (01:08)
[2017-03-20] MEDS: INSULIN ASPART [NOVOLOG] 3 ML PEN SC ×4 (01:09→18:00)
[2017-03-20] MEDS: ACCU-CHEK XX (01:09)
[2017-03-20 06:04] LABS: ADD MAN DIFF? NO
[2017-03-20 06:10] LABS: BASOPHILS % 0.4 % (0.0-2.0); EOSINOPHILS # 0.4 10^3/ul (0.0-0.5); EOSINOPHILS % 4.4 % (0.0-7.0); HEMATOCRIT 33.4 % (42.0-52.0); HEMOGLOBIN 10.9 g/dl (14.0-18.0); LYMPHOCYTES % 11.3 % (15.0-51.0); MEAN CORPUSCULAR HEMOGLOBIN 28.6 pg (29.0-33.0); MEAN CORPUSCULAR HGB CONC 32.6 g/dl (32.0-37.0); MEAN CORPUSCULAR VOLUME 87.7 fl (82.0-101.0); MEAN PLATELET VOLUME 11.6 fl (7.4-10.4); MONOCYTE # 0.7 10^3/ul (0.3-0.9); MONOCYTES % 7.7 % (0.0-11.0); NEUTROPHIL # 6.4 10^3/ul (1.6-7.5); NEUTROPHILS % 75.8 % (39.0-77.0); PLATELET COUNT 257 10^3/UL (140-415); RED BLOOD COUNT 3.81 10^6/ul (4.70-6.10); RED CELL DISTRIBUTION WIDTH 15.5 % (11.5-14.5)
[2017-03-20 06:10] LABS: WHITE BLOOD COUNT 8.5 10^3/ul (4.8-10.8)
[2017-03-20] MEDS: PIPER-TAZO 2.25 GM (PMX) 50 ML IVPB ×2 (06:13→13:29)
[2017-03-20 06:35] LABS: ANION GAP 23 (8-16); BLOOD UREA NITROGEN 67 mg/dl (7-20); CALCIUM 8.9 mg/dl (8.4-10.2); CARBON DIOXIDE 28 mmol/L (21-31); CHLORIDE 95 mmol/L (97-110); CREATININE 12.19 mg/dl (0.61-1.24); GLUCOSE 136 mg/dl (70-220); POTASSIUM 4.6 mmol/L (3.5-5.1); SODIUM 141 mmol/L (135-144)
[2017-03-20] MEDS: ASPIRIN (EC) 81 MG TAB PO (08:32)
[2017-03-20] MEDS: FAMOTIDINE 20 MG TAB NGT (08:33)
[2017-03-20] MEDS: LOSARTAN 50 MG TAB NGT (08:33)
[2017-03-20] MEDS: HEPARIN 5,000 UNIT/0.5 ML VIAL SC ×2 (08:35→20:44)
[2017-03-20 10:14] LABS: AADO2 Arterial 304.1 mmHg (7.0-24.0); Allen Test ACCEPTAB; Arterial Base Excess 1.6 mmol/L (-3.0-3); Arterial Blood Gas Oxygen Sat 93.1 mmHG (95.0-98.0); Arterial COHb 0.3 % (0.0-3.0); Arterial Fraction of Oxyhgb 92.7 % (93.0-99.0); Arterial HCO3 27.5 mmol/L (22.0-26.0); Arterial MetHb 0.1 % (0.0-1.5); Arterial Total Hemglobin 11.7 g/dl (12.0-18.0); Arterial pCO2 49.4 mmhg (35-45); MODE VENT - AC; Site Left Radial
[2017-03-20] MEDS: ALBUMIN HUMAN 25% 100 ML IV (11:53)
[2017-03-20] MEDS: HEPARIN 1000 UNITS/ML 10 ML INJ CATHETER (13:13)
[2017-03-20] MEDS: FENTAnyl (DRIP) 1000 mcg/100mL 100 ML IV (17:30)
[2017-03-20] MEDS: ATORVASTATIN 80 MG TAB PO (20:37)
[2017-03-20] MEDS: INSULIN GLARGINE [LANtus] 3 ML PEN SC (20:44)
[2017-03-21] MEDS: ACCU-CHEK XX (00:04)
[2017-03-21] MEDS: PROPOFOL 100 ML IV ×6 (00:04→23:17)
[2017-03-21 05:17] LABS: ADD MAN DIFF? NO
[2017-03-21 05:28] LABS: BASOPHILS % 0.5 % (0.0-2.0); EOSINOPHILS # 0.5 10^3/ul (0.0-0.5); EOSINOPHILS % 6.6 % (0.0-7.0); HEMATOCRIT 35.6 % (42.0-52.0); LYMPHOCYTES % 12.9 % (15.0-51.0); MEAN CORPUSCULAR HEMOGLOBIN 27.3 pg (29.0-33.0); MEAN CORPUSCULAR HGB CONC 30.9 g/dl (32.0-37.0); MEAN CORPUSCULAR VOLUME 88.3 fl (82.0-101.0); MEAN PLATELET VOLUME 11.7 fl (7.4-10.4); MONOCYTE # 0.6 10^3/ul (0.3-0.9); MONOCYTES % 7.7 % (0.0-11.0); NEUTROPHIL # 5.7 10^3/ul (1.6-7.5); NEUTROPHILS % 71.9 % (39.0-77.0); PLATELET COUNT 256 10^3/UL (140-415); RED BLOOD COUNT 4.03 10^6/ul (4.70-6.10); RED CELL DISTRIBUTION WIDTH 15.1 % (11.5-14.5)
[2017-03-21] MEDS: INSULIN ASPART [NOVOLOG] 3 ML PEN SC ×4 (05:56→18:00)
[2017-03-21 06:33] LABS: ANION GAP 28 (8-16); BLOOD UREA NITROGEN 72 mg/dl (7-20); CALCIUM 9.1 mg/dl (8.4-10.2); CARBON DIOXIDE 23 mmol/L (21-31); CHLORIDE 95 mmol/L (97-110); CREATININE 12.51 mg/dl (0.61-1.24); GLUCOSE 128 mg/dl (70-220); POTASSIUM 4.5 mmol/L (3.5-5.1); SODIUM 141 mmol/L (135-144)
[2017-03-21] MEDS: FAMOTIDINE 20 MG TAB NGT (10:07)
[2017-03-21] MEDS: LOSARTAN 50 MG TAB NGT (10:07)
[2017-03-21] MEDS: ASPIRIN (EC) 81 MG TAB PO (10:08)
[2017-03-21] MEDS: HEPARIN 5,000 UNIT/0.5 ML VIAL SC ×2 (10:10→21:06)
[2017-03-21] MEDS: CEFEPIME 1GM/50 ML (PMX) 50 ML IVPB (10:21)
[2017-03-21] MEDS: ACETAMINOPHEN 325 MG TAB PO ×2 (11:55→18:39)
[2017-03-21 14:15] LABS: ADD UMIC YES; UR ASCORBIC ACID NEGATIVE (NEGATIVE); UR BACTERIA FEW /HPF (NONE SEEN); UR BILIRUBIN (Dip) NEGATIVE (NEGATIVE); UR BLOOD (Dip) NEGATIVE (NEGATIVE); UR CLARITY SLIGHTLY CLOUDY (CLEAR); UR COLOR YELLOW (YELLOW); UR GLUCOSE (Dip) 1+ mg/dL (NEGATIVE); UR KETONES (Dip) NEGATIVE (NEGATIVE); UR LEUKOCYTE ESTERASE (Dip) NEGATIVE Leu/ul (NEGATIVE); UR NITRITE (Dip) NEGATIVE (NEGATIVE); UR RBC 1 /HPF (0-5); UR SPECIFIC GRAVITY (Dip) 1.018 (1.003-1.030); UR TOTAL PROTEIN (Dip) 3+ mg/dl (NEGATIVE); UR UROBILINOGEN (Dip) NEGATIVE (NEGATIVE); UR WBC 0 /HPF (0-5)
[2017-03-21] MEDS: FENTAnyl (DRIP) 1000 mcg/100mL 100 ML IV (20:01)
[2017-03-21] MEDS: INSULIN GLARGINE [LANtus] 3 ML PEN SC (21:06)
[2017-03-21] MEDS: ATORVASTATIN 80 MG TAB PO (21:07)
[2017-03-22] MEDS: ACCU-CHEK XX (02:00)
[2017-03-22] MEDS: PROPOFOL 100 ML IV ×4 (04:47→19:28)
[2017-03-22 05:37] LABS: ADD MAN DIFF? NO
[2017-03-22 05:46] LABS: BASOPHIL # 0.1 10^3/ul (0.0-0.1); BASOPHILS % 0.6 % (0.0-2.0); EOSINOPHILS # 0.4 10^3/ul (0.0-0.5); EOSINOPHILS % 5.2 % (0.0-7.0); HEMATOCRIT 34.2 % (42.0-52.0); HEMOGLOBIN 10.8 g/dl (14.0-18.0); LYMPHOCYTES # 1.3 10^3/ul (0.8-2.9); LYMPHOCYTES % 16.6 % (15.0-51.0); MEAN CORPUSCULAR HEMOGLOBIN 27.8 pg (29.0-33.0); MEAN CORPUSCULAR HGB CONC 31.6 g/dl (32.0-37.0); MEAN CORPUSCULAR VOLUME 88.1 fl (82.0-101.0); MEAN PLATELET VOLUME 11.7 fl (7.4-10.4); MONOCYTE # 0.8 10^3/ul (0.3-0.9); MONOCYTES % 10.4 % (0.0-11.0); NEUTROPHIL # 5.3 10^3/ul (1.6-7.5); NEUTROPHILS % 66.8 % (39.0-77.0); PLATELET COUNT 265 10^3/UL (140-415); RED BLOOD COUNT 3.88 10^6/ul (4.70-6.10); RED CELL DISTRIBUTION WIDTH 15.2 % (11.5-14.5)
[2017-03-22 05:46] LABS: WHITE BLOOD COUNT 7.9 10^3/ul (4.8-10.8)
[2017-03-22] MEDS: INSULIN ASPART [NOVOLOG] 3 ML PEN SC ×4 (05:52→18:25)
[2017-03-22 06:25] LABS: ANION GAP 27 (8-16); BLOOD UREA NITROGEN 98 mg/dl (7-20); CALCIUM 9.1 mg/dl (8.4-10.2); CARBON DIOXIDE 24 mmol/L (21-31); CHLORIDE 92 mmol/L (97-110); GLUCOSE 111 mg/dl (70-220); POTASSIUM 5.2 mmol/L (3.5-5.1); SODIUM 138 mmol/L (135-144)
[2017-03-22 06:33] LABS: CREATININE 14.55 mg/dl (0.61-1.24)
[2017-03-22] MEDS: LOSARTAN 50 MG TAB NGT (09:00)
[2017-03-22] MEDS: ASPIRIN (EC) 81 MG TAB PO (09:21)
[2017-03-22] MEDS: CEFEPIME 1GM/50 ML (PMX) 50 ML IVPB (09:21)
[2017-03-22] MEDS: FAMOTIDINE 20 MG TAB NGT (09:21)
[2017-03-22] MEDS: HEPARIN 5,000 UNIT/0.5 ML VIAL SC ×2 (09:25→21:02)
[2017-03-22] MEDS: ALBUMIN HUMAN 25% 100 ML IV (12:47)
[2017-03-22] MEDS: AMIODARONE 150MG/D5W BOLUS 100 ML IV (15:40)
[2017-03-22] MEDS: ACETAMINOPHEN 325 MG TAB PO (15:49)
[2017-03-22] MEDS: AMIODARONE 900 MG in DEXTROSE 5% 482 ML IV (16:40)
[2017-03-22] MEDS: ATORVASTATIN 80 MG TAB PO (20:59)
[2017-03-22] MEDS: INSULIN GLARGINE [LANtus] 3 ML PEN SC (21:04)
[2017-03-23] MEDS: PROPOFOL 100 ML IV ×5 (00:13→22:54)
[2017-03-23] MEDS: INSULIN ASPART [NOVOLOG] 3 ML PEN SC ×5 (00:21→23:16)
[2017-03-23] MEDS: ACCU-CHEK XX (02:00)
[2017-03-23] MEDS: SOD CHLORIDE 0.9% 500 ML IV (03:00)
[2017-03-23 05:23] LABS: ADD MAN DIFF? NO
[2017-03-23 05:29] LABS: BASOPHIL # 0.1 10^3/ul (0.0-0.1); BASOPHILS % 0.7 % (0.0-2.0); EOSINOPHILS # 0.2 10^3/ul (0.0-0.5); EOSINOPHILS % 2.3 % (0.0-7.0); HEMATOCRIT 33.5 % (42.0-52.0); HEMOGLOBIN 10.7 g/dl (14.0-18.0); LYMPHOCYTES # 1.3 10^3/ul (0.8-2.9); LYMPHOCYTES % 15.3 % (15.0-51.0); MEAN CORPUSCULAR HEMOGLOBIN 27.4 pg (29.0-33.0); MEAN CORPUSCULAR HGB CONC 31.9 g/dl (32.0-37.0); MEAN CORPUSCULAR VOLUME 85.9 fl (82.0-101.0); MONOCYTE # 0.8 10^3/ul (0.3-0.9); MONOCYTES % 9.8 % (0.0-11.0); NEUTROPHIL # 5.9 10^3/ul (1.6-7.5); NEUTROPHILS % 71.4 % (39.0-77.0); PLATELET COUNT 244 10^3/UL (140-415); RED CELL DISTRIBUTION WIDTH 15.4 % (11.5-14.5)
[2017-03-23 05:29] LABS: WHITE BLOOD COUNT 8.3 10^3/ul (4.8-10.8)
[2017-03-23 06:22] LABS: ANION GAP 27 (8-16); BLOOD UREA NITROGEN 86 mg/dl (7-20); CARBON DIOXIDE 25 mmol/L (21-31); CHLORIDE 89 mmol/L (97-110); GLUCOSE 134 mg/dl (70-220); POTASSIUM 4.9 mmol/L (3.5-5.1); SODIUM 136 mmol/L (135-144)
[2017-03-23 06:46] LABS: CREATININE 12.42 mg/dl (0.61-1.24)
[2017-03-23] MEDS: FAMOTIDINE 20 MG TAB NGT (08:36)
[2017-03-23] MEDS: ASPIRIN (EC) 81 MG TAB PO (08:36)
[2017-03-23] MEDS: HEPARIN 5,000 UNIT/0.5 ML VIAL SC ×2 (08:37→20:42)
[2017-03-23] MEDS: LOSARTAN 25 MG TAB NGT (08:43)
[2017-03-23] MEDS ORDERED: ALBUMIN HUMAN 25% 100 ML (10:51)
[2017-03-23] MEDS: ALBUMIN HUMAN 25% 100 ML IV (11:25)
[2017-03-23] MEDS: CEFEPIME 1GM/50 ML (PMX) 50 ML IVPB (12:00)
[2017-03-23] MEDS: FENTAnyl (DRIP) 1000 mcg/100mL 100 ML IV ×2 (13:32→15:37)
[2017-03-23] MEDS: ATORVASTATIN 80 MG TAB PO (20:37)
[2017-03-23] MEDS: INSULIN GLARGINE [LANtus] 3 ML PEN SC (20:43)
[2017-03-24] MEDS: ACCU-CHEK XX (02:00)
[2017-03-24] MEDS: PROPOFOL 100 ML IV ×3 (03:56→16:21)
[2017-03-24 05:07] LABS: ADD MAN DIFF? NO
[2017-03-24 05:17] LABS: BASOPHIL # 0.1 10^3/ul (0.0-0.1); BASOPHILS % 0.9 % (0.0-2.0); EOSINOPHILS # 0.2 10^3/ul (0.0-0.5); EOSINOPHILS % 2.5 % (0.0-7.0); HEMATOCRIT 35.8 % (42.0-52.0); HEMOGLOBIN 11.3 g/dl (14.0-18.0); LYMPHOCYTES # 1.3 10^3/ul (0.8-2.9); LYMPHOCYTES % 14.2 % (15.0-51.0); MEAN CORPUSCULAR HEMOGLOBIN 27.2 pg (29.0-33.0); MEAN CORPUSCULAR HGB CONC 31.6 g/dl (32.0-37.0); MEAN CORPUSCULAR VOLUME 86.1 fl (82.0-101.0); MEAN PLATELET VOLUME 12.3 fl (7.4-10.4); MONOCYTE # 0.9 10^3/ul (0.3-0.9); MONOCYTES % 9.9 % (0.0-11.0); NEUTROPHIL # 6.4 10^3/ul (1.6-7.5); NEUTROPHILS % 71.8 % (39.0-77.0); PLATELET COUNT 257 10^3/UL (140-415); RED BLOOD COUNT 4.16 10^6/ul (4.70-6.10); RED CELL DISTRIBUTION WIDTH 15.1 % (11.5-14.5)
[2017-03-24 05:17] LABS: WHITE BLOOD COUNT 8.9 10^3/ul (4.8-10.8)
[2017-03-24 05:24] LABS: AADO2 Arterial 165.9 mmHg (7.0-24.0); Arterial Blood Gas Oxygen Sat 92.5 mmHG (95.0-98.0); Arterial COHb 0.4 % (0.0-3.0); Arterial Fraction of Oxyhgb 91.9 % (93.0-99.0); Arterial HCO3 23.4 mmol/L (22.0-26.0); Arterial MetHb 0.2 % (0.0-1.5); Arterial Total Hemglobin 15.9 g/dl (12.0-18.0); Arterial pCO2 41.9 mmhg (35-45); MODE VENT - AC; Site Right Brachial
[2017-03-24] MEDS: INSULIN ASPART [NOVOLOG] 3 ML PEN SC ×4 (05:29→23:50)
[2017-03-24 06:24] LABS: ANION GAP 30 (8-16); BLOOD UREA NITROGEN 82 mg/dl (7-20); CALCIUM 9.1 mg/dl (8.4-10.2); CARBON DIOXIDE 23 mmol/L (21-31); CHLORIDE 88 mmol/L (97-110); CREATININE 12.09 mg/dl (0.61-1.24); GLUCOSE 149 mg/dl (70-220); POTASSIUM 5.1 mmol/L (3.5-5.1); SODIUM 136 mmol/L (135-144)
[2017-03-24] MEDS: FAMOTIDINE 20 MG TAB NGT (07:59)
[2017-03-24] MEDS: ASPIRIN (EC) 81 MG TAB PO (07:59)
[2017-03-24] MEDS: HEPARIN 5,000 UNIT/0.5 ML VIAL SC ×2 (08:00→20:37)
[2017-03-24] MEDS: LOSARTAN 25 MG TAB NGT (08:02)
[2017-03-24] MEDS: CEFEPIME 1GM/50 ML (PMX) 50 ML IVPB (09:56)
[2017-03-24] MEDS: ACETAMINOPHEN 325 MG TAB PO ×2 (11:39→20:26)
[2017-03-24] MEDS: ATORVASTATIN 80 MG TAB PO (20:26)
[2017-03-24] MEDS: INSULIN GLARGINE [LANtus] 3 ML PEN SC (20:37)
[2017-03-25] MEDS: ACCU-CHEK XX (03:02)
[2017-03-25] MEDS: PROPOFOL 100 ML IV ×5 (03:16→20:20)
[2017-03-25 05:15] LABS: AADO2 Arterial 203.9 mmHg (7.0-24.0); Allen Test ACCEPTAB; Arterial Base Excess -4.7 mmol/L (-3.0-3); Arterial Blood Gas Oxygen Sat 96.5 mmHG (95.0-98.0); Arterial COHb 0.1 % (0.0-3.0); Arterial Fraction of Oxyhgb 96.2 % (93.0-99.0); Arterial HCO3 21.9 mmol/L (22.0-26.0); Arterial MetHb 0.2 % (0.0-1.5); Arterial Total Hemglobin 11.4 g/dl (12.0-18.0); Arterial pCO2 47.1 mmhg (35-45); MODE VENT - AC; Site Left Radial
[2017-03-25] MEDS: INSULIN ASPART [NOVOLOG] 3 ML PEN SC ×3 (05:19→17:29)
[2017-03-25 05:39] LABS: ADD MAN DIFF? NO
[2017-03-25 05:51] LABS: BASOPHIL # 0.1 10^3/ul (0.0-0.1); BASOPHILS % 1.1 % (0.0-2.0); EOSINOPHILS # 0.2 10^3/ul (0.0-0.5); HEMATOCRIT 35.7 % (42.0-52.0); HEMOGLOBIN 11.5 g/dl (14.0-18.0); MEAN CORPUSCULAR HEMOGLOBIN 27.5 pg (29.0-33.0); MEAN CORPUSCULAR HGB CONC 32.2 g/dl (32.0-37.0); MEAN CORPUSCULAR VOLUME 85.4 fl (82.0-101.0); MEAN PLATELET VOLUME 12.6 fl (7.4-10.4); MONOCYTE # 0.8 10^3/ul (0.3-0.9); MONOCYTES % 8.7 % (0.0-11.0); NEUTROPHIL # 7.1 10^3/ul (1.6-7.5); NEUTROPHILS % 76.5 % (39.0-77.0); PLATELET COUNT 240 10^3/UL (140-415); RED BLOOD COUNT 4.18 10^6/ul (4.70-6.10); RED CELL DISTRIBUTION WIDTH 15.3 % (11.5-14.5)
[2017-03-25 05:51] LABS: WHITE BLOOD COUNT 9.2 10^3/ul (4.8-10.8)
[2017-03-25 06:03] LABS: ANION GAP 32 (8-16); BLOOD UREA NITROGEN 115 mg/dl (7-20); CALCIUM 9.2 mg/dl (8.4-10.2); CARBON DIOXIDE 22 mmol/L (21-31); CHLORIDE 86 mmol/L (97-110); GLUCOSE 127 mg/dl (70-220); SODIUM 134 mmol/L (135-144)
[2017-03-25 06:05] LABS: LACTIC ACID 0.7 mmol/L (0.5-2.0)
[2017-03-25 06:35] LABS: CREATININE 14.06 mg/dl (0.61-1.24); POTASSIUM 6.3 mmol/L (3.5-5.1)
[2017-03-25] MEDS: NA POLYST SULFON 15 GM/60 ML BTL NGT (06:45)
[2017-03-25] MEDS: FENTAnyl (DRIP) 1000 mcg/100mL 100 ML IV (07:49)
[2017-03-25] MEDS: LOSARTAN 25 MG TAB NGT (09:00)
[2017-03-25] MEDS: HEPARIN 1000 UNITS/ML 10 ML INJ CATHETER (10:30)
[2017-03-25] MEDS: ASPIRIN (EC) 81 MG TAB PO (11:27)
[2017-03-25] MEDS: FAMOTIDINE 20 MG TAB NGT (11:27)
[2017-03-25] MEDS: HEPARIN 5,000 UNIT/0.5 ML VIAL SC ×2 (11:28→20:39)
[2017-03-25] MEDS: CEFEPIME 1GM/50 ML (PMX) 50 ML IVPB (11:31)
[2017-03-25] MEDS: ACETAMINOPHEN 325 MG TAB PO (17:30)
[2017-03-25] MEDS: INSULIN GLARGINE [LANtus] 3 ML PEN SC (20:37)
[2017-03-25] MEDS: ATORVASTATIN 80 MG TAB PO (20:41)
[2017-03-26] MEDS: INSULIN ASPART [NOVOLOG] 3 ML PEN SC ×4 (00:52→17:39)
[2017-03-26] MEDS: ACCU-CHEK XX (02:00)
[2017-03-26] MEDS: PROPOFOL 100 ML IV ×4 (04:07→21:03)
[2017-03-26] MEDS: FENTAnyl (DRIP) 1000 mcg/100mL 100 ML IV ×2 (04:09→20:08)
[2017-03-26 06:38] LABS: ALANINE AMINOTRANSFERASE 50 IU/L (13-69); ALBUMIN/GLOBULIN RATIO 0.93; ALKALINE PHOSPHATASE 139 IU/L (42-121); ANION GAP 28 (8-16); ASPARTATE AMINO TRANSFERASE 70 IU/L (15-46); BLOOD UREA NITROGEN 93 mg/dl (7-20); CALCIUM 9.2 mg/dl (8.4-10.2); CARBON DIOXIDE 24 mmol/L (21-31); CHLORIDE 87 mmol/L (97-110); GLUCOSE 158 mg/dl (70-220); POTASSIUM 5.3 mmol/L (3.5-5.1); SODIUM 134 mmol/L (135-144); TOTAL PROTEIN 8.3 g/dl (6.1-8.1)
[2017-03-26 06:44] LABS: CREATININE 12.41 mg/dl (0.61-1.24)
[2017-03-26] MEDS: ASPIRIN (EC) 81 MG TAB PO (08:42)
[2017-03-26] MEDS: FAMOTIDINE 20 MG TAB NGT (08:42)
[2017-03-26] MEDS: HEPARIN 5,000 UNIT/0.5 ML VIAL SC ×2 (09:00→21:06)
[2017-03-26] MEDS: CEFEPIME 1GM/50 ML (PMX) 50 ML IVPB (09:09)
[2017-03-26] MEDS ORDERED: LIDOCAINE 1% (MPF) 30 ML INJ (10:50)
[2017-03-26] MEDS: LIDOCAINE 1% (MDV) 20 ML INJ INJ (11:53)
[2017-03-26] MEDS: ATORVASTATIN 80 MG TAB PO (21:03)
[2017-03-26] MEDS: INSULIN GLARGINE [LANtus] 3 ML PEN SC (21:10)
[2017-03-26] MEDS: NA POLYST SULFON 15 GM/60 ML BTL PO (21:15)
[2017-03-26] MEDS: ACETAMINOPHEN 325 MG TAB PO (22:43)
[2017-03-27] MEDS: INSULIN ASPART [NOVOLOG] 3 ML PEN SC ×5 (01:39→23:32)
[2017-03-27] MEDS: ACCU-CHEK XX (02:00)
[2017-03-27] MEDS: PROPOFOL 100 ML IV (04:40)
[2017-03-27 05:41] LABS: ADD MAN DIFF? NO
[2017-03-27 05:48] LABS: BASOPHIL # 0.1 10^3/ul (0.0-0.1); BASOPHILS % 0.7 % (0.0-2.0); EOSINOPHILS # 0.2 10^3/ul (0.0-0.5); EOSINOPHILS % 1.7 % (0.0-7.0); HEMATOCRIT 34.4 % (42.0-52.0); HEMOGLOBIN 10.8 g/dl (14.0-18.0); LYMPHOCYTES # 0.8 10^3/ul (0.8-2.9); LYMPHOCYTES % 8.3 % (15.0-51.0); MEAN CORPUSCULAR HGB CONC 31.4 g/dl (32.0-37.0); MEAN PLATELET VOLUME 12.7 fl (7.4-10.4); MONOCYTE # 0.9 10^3/ul (0.3-0.9); MONOCYTES % 8.8 % (0.0-11.0); NEUTROPHILS % 80.1 % (39.0-77.0); PLATELET COUNT 210 10^3/UL (140-415); RED CELL DISTRIBUTION WIDTH 15.3 % (11.5-14.5)
[2017-03-27 06:34] LABS: ANION GAP 33 (8-16); BLOOD UREA NITROGEN 116 mg/dl (7-20); CALCIUM 8.6 mg/dl (8.4-10.2); CARBON DIOXIDE 21 mmol/L (21-31); CHLORIDE 86 mmol/L (97-110); GLUCOSE 134 mg/dl (70-220); MAGNESIUM 2.7 mg/dl (1.7-2.5); POTASSIUM 5.9 mmol/L (3.5-5.1); SODIUM 134 mmol/L (135-144)
[2017-03-27 06:58] LABS: CREATININE 14.75 mg/dl (0.61-1.24)
[2017-03-27 06:59] LABS: PHOSPHORUS 13.6 mg/dl (2.5-4.9)
[2017-03-27 08:11] LABS: AADO2 Arterial 225.2 mmHg (7.0-24.0); Allen Test ACCEPTAB; Arterial Base Excess -5.5 mmol/L (-3.0-3); Arterial Blood Gas Oxygen Sat 93.5 mmHG (95.0-98.0); Arterial COHb 0.3 % (0.0-3.0); Arterial HCO3 21.2 mmol/L (22.0-26.0); Arterial MetHb 0.2 % (0.0-1.5); Arterial Total Hemglobin 11.7 g/dl (12.0-18.0); Arterial pCO2 46.5 mmhg (35-45); MODE VENT - AC; Site Right Radial
[2017-03-27] MEDS: FAMOTIDINE 20 MG TAB NGT (08:18)
[2017-03-27] MEDS: ASPIRIN (EC) 81 MG TAB PO (08:18)
[2017-03-27] MEDS: HEPARIN 5,000 UNIT/0.5 ML VIAL SC ×2 (08:19→20:13)
[2017-03-27] MEDS: FENTAnyl (DRIP) 1000 mcg/100mL 100 ML IV (15:50)
[2017-03-27] MEDS: CALCIUM ACETATE 667 MG CAP PO (17:00)
[2017-03-27] MEDS: ACETAMINOPHEN 325 MG TAB PO (20:06)
[2017-03-27] MEDS: ATORVASTATIN 80 MG TAB PO (20:06)
[2017-03-27] MEDS: INSULIN GLARGINE [LANtus] 3 ML PEN SC (20:12)
[2017-03-28] MEDS: ACCU-CHEK XX (02:00)
[2017-03-28] MEDS: INSULIN ASPART [NOVOLOG] 3 ML PEN SC ×4 (05:26→23:56)
[2017-03-28 05:38] LABS: ADD MAN DIFF? NO
[2017-03-28 05:41] LABS: ABNORMAL IP MESSAGE 1; BASOPHIL # 0.1 10^3/ul (0.0-0.1); BASOPHILS % 0.5 % (0.0-2.0); EOSINOPHILS # 0.1 10^3/ul (0.0-0.5); EOSINOPHILS % 0.5 % (0.0-7.0); HEMATOCRIT 32.7 % (42.0-52.0); HEMOGLOBIN 10.5 g/dl (14.0-18.0); MEAN CORPUSCULAR HEMOGLOBIN 27.5 pg (29.0-33.0); MEAN CORPUSCULAR HGB CONC 32.1 g/dl (32.0-37.0); MEAN CORPUSCULAR VOLUME 85.6 fl (82.0-101.0); MEAN PLATELET VOLUME 13.2 fl (7.4-10.4); MONOCYTE # 0.7 10^3/ul (0.3-0.9); MONOCYTES % 6.6 % (0.0-11.0); NEUTROPHIL # 9.1 10^3/ul (1.6-7.5); NEUTROPHILS % 82.9 % (39.0-77.0); PLATELET COUNT 219 10^3/UL (140-415); POSITIVE DIFF @See below; RED BLOOD COUNT 3.82 10^6/ul (4.70-6.10); RED CELL DISTRIBUTION WIDTH 15.5 % (11.5-14.5)
[2017-03-28 06:10] LABS: ANION GAP 27 (8-16); BLOOD UREA NITROGEN 93 mg/dl (7-20); CALCIUM 8.7 mg/dl (8.4-10.2); CARBON DIOXIDE 23 mmol/L (21-31); CHLORIDE 91 mmol/L (97-110); CREATININE 13.05 mg/dl (0.61-1.24); GLUCOSE 198 mg/dl (70-220); POTASSIUM 4.7 mmol/L (3.5-5.1); SODIUM 136 mmol/L (135-144)
[2017-03-28] MEDS: CALCIUM ACETATE 667 MG CAP PO ×3 (06:36→17:26)
[2017-03-28 08:31] LABS: Allen Test ACCEPTAB; Arterial Base Excess -1.4 mmol/L (-3.0-3); Arterial Blood Gas Oxygen Sat 95.8 mmHG (95.0-98.0); Arterial COHb 0.3 % (0.0-3.0); Arterial Fraction of Oxyhgb 95.4 % (93.0-99.0); Arterial HCO3 24.1 mmol/L (22.0-26.0); Arterial MetHb 0.1 % (0.0-1.5); Arterial Total Hemglobin 11.7 g/dl (12.0-18.0); Arterial pCO2 43.3 mmhg (35-45); MODE VENT - AC; Site Right Radial
[2017-03-28] MEDS: PROPOFOL 100 ML IV (08:55)
[2017-03-28] MEDS: ASPIRIN 81 MG TAB GTB (09:25)
[2017-03-28] MEDS: FAMOTIDINE 20 MG TAB NGT (09:25)
[2017-03-28] MEDS: HEPARIN 5,000 UNIT/0.5 ML VIAL SC ×2 (09:46→20:10)
[2017-03-28] MEDS ORDERED: CEFAZOLIN 2 GM in SOD CHLORIDE 0.9% 50 ML IVPB (11:30)
[2017-03-28] MEDS: CEFAZOLIN 2 GM/50 ML (PMX) 50 ML IVPB (12:00)
[2017-03-28] MEDS: ACETAMINOPHEN 325 MG TAB PO (19:04)
[2017-03-28] MEDS: ATORVASTATIN 80 MG TAB PO (20:16)
[2017-03-28] MEDS: INSULIN GLARGINE [LANtus] 3 ML PEN SC (20:16)
[2017-03-28] MEDS: BALSAM PERU/CASTOR OIL 60 GM TUBE TOP (20:16)
[2017-03-29] MEDS: ACCU-CHEK XX (02:00)
[2017-03-29] MEDS: INSULIN ASPART [NOVOLOG] 3 ML PEN SC ×3 (05:14→18:00)
[2017-03-29 06:37] LABS: ADD MAN DIFF? NO
[2017-03-29 06:44] LABS: ABNORMAL IP MESSAGE 1; BASOPHIL # 0.1 10^3/ul (0.0-0.1); BASOPHILS % 0.9 % (0.0-2.0); EOSINOPHILS % 0.3 % (0.0-7.0); HEMOGLOBIN 10.2 g/dl (14.0-18.0); LYMPHOCYTES # 1.2 10^3/ul (0.8-2.9); LYMPHOCYTES % 8.6 % (15.0-51.0); MEAN CORPUSCULAR HEMOGLOBIN 27.1 pg (29.0-33.0); MEAN CORPUSCULAR HGB CONC 31.9 g/dl (32.0-37.0); MEAN CORPUSCULAR VOLUME 85.1 fl (82.0-101.0); MEAN PLATELET VOLUME 13.3 fl (7.4-10.4); NEUTROPHIL # 11.3 10^3/ul (1.6-7.5); NEUTROPHILS % 82.5 % (39.0-77.0); PLATELET COUNT 228 10^3/UL (140-415); POSITIVE DIFF @See below; RED BLOOD COUNT 3.76 10^6/ul (4.70-6.10); RED CELL DISTRIBUTION WIDTH 15.6 % (11.5-14.5)
[2017-03-29 06:44] LABS: WHITE BLOOD COUNT 13.6 10^3/ul (4.8-10.8)
[2017-03-29 07:16] LABS: ANION GAP 31 (8-16); CALCIUM 9.1 mg/dl (8.4-10.2); CARBON DIOXIDE 21 mmol/L (21-31); CHLORIDE 89 mmol/L (97-110); GLUCOSE 105 mg/dl (70-220); MAGNESIUM 2.6 mg/dl (1.7-2.5); POTASSIUM 4.8 mmol/L (3.5-5.1); SODIUM 136 mmol/L (135-144)
[2017-03-29] MEDS: CALCIUM ACETATE 667 MG CAP PO ×3 (07:19→17:49)
[2017-03-29 07:24] LABS: BLOOD UREA NITROGEN 124 mg/dl (7-20); CREATININE 14.23 mg/dl (0.61-1.24)
[2017-03-29] MEDS ORDERED: CEFAZOLIN 1 GM INJ (08:00)
[2017-03-29] MEDS: FAMOTIDINE 20 MG TAB NGT (09:00)
[2017-03-29] MEDS: ASPIRIN 81 MG TAB GTB (09:00)
[2017-03-29] MEDS: BALSAM PERU/CASTOR OIL 60 GM TUBE TOP ×2 (09:00→21:08)
[2017-03-29] MEDS: FENTAnyl 50 MCG/ML VIAL (14:00)
[2017-03-29] MEDS ORDERED: ETOMIDATE 20 MG INJ (14:02)
[2017-03-29] MEDS: ACETAMINOPHEN 325 MG TAB PO (17:50)
[2017-03-29] MEDS: PROPOFOL 100 ML IV ×2 (19:00→21:00)
[2017-03-29] MEDS: DEXTROSE 5%-0.45% NACL 1,000 ML IV (20:53)
[2017-03-29] MEDS: ATORVASTATIN 80 MG TAB PO (21:08)
[2017-03-29] MEDS: ACETAMINOPHEN 1000MG/100ML IV 65 ML IVPB (21:10)
[2017-03-29] MEDS: INSULIN GLARGINE [LANtus] 3 ML PEN SC (21:11)
[2017-03-29] MEDS ORDERED: VANCOMYCIN 1 GM in SOD CHLORIDE 0.45% 250 ML IVPB (23:00)
[2017-03-30] MEDS: VANCOMYCIN 1 GM 250 ML IVPB (01:28)
[2017-03-30] MEDS: ACCU-CHEK XX (02:00)
[2017-03-30] MEDS: INSULIN ASPART [NOVOLOG] 3 ML PEN SC ×4 (06:00→17:46)
[2017-03-30] MEDS: CALCIUM ACETATE 667 MG CAP PO ×3 (09:24→17:35)
[2017-03-30] MEDS: BALSAM PERU/CASTOR OIL 60 GM TUBE TOP ×2 (09:24→21:06)
[2017-03-30] MEDS: FAMOTIDINE 20 MG TAB NGT (09:24)
[2017-03-30] MEDS: ASPIRIN 81 MG TAB GTB (09:24)
[2017-03-30] MEDS: morphine 2 MG INJ IV (09:35)
[2017-03-30] MEDS: DEXTROSE 5%-0.45% NACL 1,000 ML IV ×3 (10:20→23:40)
[2017-03-30] MEDS: SEVELAMER 800 MG TAB PO ×2 (16:00→21:00)
[2017-03-30] MEDS: PIPER-TAZO 2.25 GM (PMX) 50 ML IVPB ×2 (17:40→22:38)
[2017-03-30] MEDS: ATORVASTATIN 80 MG TAB PO (21:06)
[2017-03-30] MEDS: INSULIN GLARGINE [LANtus] 3 ML PEN SC (21:10)
[2017-03-30] MEDS: ACETAMINOPHEN 325 MG TAB PO (23:27)
[2017-03-30] MEDS: SOD CHLORIDE 0.9% 500 ML IV (23:56)
[2017-03-31 00:34] LABS: ADD MAN DIFF? NO
[2017-03-31 00:39] LABS: ABNORMAL IP MESSAGE 1; BASOPHILS % 0.2 % (0.0-2.0); EOSINOPHILS # 0.2 10^3/ul (0.0-0.5); EOSINOPHILS % 1.9 % (0.0-7.0); HEMATOCRIT 37.2 % (42.0-52.0); HEMOGLOBIN 11.7 g/dl (14.0-18.0); LYMPHOCYTES # 0.5 10^3/ul (0.8-2.9); LYMPHOCYTES % 3.7 % (15.0-51.0); MEAN CORPUSCULAR HEMOGLOBIN 26.8 pg (29.0-33.0); MEAN CORPUSCULAR HGB CONC 31.5 g/dl (32.0-37.0); MEAN CORPUSCULAR VOLUME 85.1 fl (82.0-101.0); MEAN PLATELET VOLUME 13.7 fl (7.4-10.4); MONOCYTE # 0.6 10^3/ul (0.3-0.9); MONOCYTES % 5.2 % (0.0-11.0); NEUTROPHIL # 10.8 10^3/ul (1.6-7.5); NEUTROPHILS % 88.4 % (39.0-77.0); PLATELET COUNT 217 10^3/UL (140-415); POSITIVE DIFF @See below; RED BLOOD COUNT 4.37 10^6/ul (4.70-6.10); RED CELL DISTRIBUTION WIDTH 15.5 % (11.5-14.5)
[2017-03-31 00:39] LABS: WHITE BLOOD COUNT 12.3 10^3/ul (4.8-10.8)
[2017-03-31] MEDS ORDERED: NORepinephrine 8MG/250 ML (PMX 250 ML (00:46)
[2017-03-31] MEDS: INSULIN ASPART [NOVOLOG] 3 ML PEN SC ×4 (01:03→17:55)
[2017-03-31] MEDS: ACCU-CHEK XX (01:06)
[2017-03-31] MEDS: NORepinephrine 8MG/250 ML (PMX 250 ML IV (01:09)
[2017-03-31 01:15] LABS: ALANINE AMINOTRANSFERASE 77 IU/L (13-69); ALBUMIN 3.6 g/dl (3.3-4.9); ALBUMIN/GLOBULIN RATIO 0.85; ALKALINE PHOSPHATASE 202 IU/L (42-121); ANION GAP 28 (8-16); ASPARTATE AMINO TRANSFERASE 257 IU/L (15-46); CALCIUM 9.4 mg/dl (8.4-10.2); CARBON DIOXIDE 20 mmol/L (21-31); CHLORIDE 89 mmol/L (97-110); GLUCOSE 201 mg/dl (70-220); POTASSIUM 4.8 mmol/L (3.5-5.1); SODIUM 132 mmol/L (135-144); TOTAL PROTEIN 7.8 g/dl (6.1-8.1)
[2017-03-31] MEDS: morphine 2 MG INJ IV ×2 (03:35→13:13)
[2017-03-31] MEDS: SOD CHLORIDE 0.9% 500 ML IV (04:49)
[2017-03-31] MEDS ORDERED: LIDOCAINE 1% (MPF) 5 ML VIAL SC (05:00)
[2017-03-31 05:18] LABS: ALANINE AMINOTRANSFERASE 37 IU/L (13-69); ALBUMIN 2.8 g/dl (3.3-4.9); ALBUMIN/GLOBULIN RATIO 0.71; ALKALINE PHOSPHATASE 136 IU/L (42-121); ANION GAP 21 (8-16); ASPARTATE AMINO TRANSFERASE 108 IU/L (15-46); BILIRUBIN,INDIRECT 1.9 mg/dl (0-1.1); BILIRUBIN,TOTAL 9.2 mg/dl (0.2-1.3); BLOOD UREA NITROGEN 26 mg/dl (7-20); CALCIUM 8.1 mg/dl (8.4-10.2); CARBON DIOXIDE 15 mmol/L (21-31); CHLORIDE 117 mmol/L (97-110); GLUCOSE 114 mg/dl (70-220); PHOSPHORUS 4.2 mg/dl (2.5-4.9); POTASSIUM 3.7 mmol/L (3.5-5.1); SODIUM 149 mmol/L (135-144); TOTAL PROTEIN 6.7 g/dl (6.1-8.1)
[2017-03-31] MEDS: DEXTROSE 5%-0.45% NACL 1,000 ML IV ×2 (05:33→19:51)
[2017-03-31] MEDS: PIPER-TAZO 2.25 GM (PMX) 50 ML IVPB (05:36)
[2017-03-31 06:23] LABS: ALANINE AMINOTRANSFERASE 80 IU/L (13-69); ALBUMIN 3.4 g/dl (3.3-4.9); ALBUMIN/GLOBULIN RATIO 0.87; ALKALINE PHOSPHATASE 207 IU/L (42-121); ANION GAP 25 (8-16); ASPARTATE AMINO TRANSFERASE 264 IU/L (15-46); CALCIUM 8.9 mg/dl (8.4-10.2); CARBON DIOXIDE 20 mmol/L (21-31); CHLORIDE 91 mmol/L (97-110); GLUCOSE 201 mg/dl (70-220); MAGNESIUM 2.3 mg/dl (1.7-2.5); PHOSPHORUS 8.2 mg/dl (2.5-4.9); POTASSIUM 4.1 mmol/L (3.5-5.1); SODIUM 132 mmol/L (135-144); TOTAL PROTEIN 7.3 g/dl (6.1-8.1)
[2017-03-31 06:37] LABS: BLOOD UREA NITROGEN 120 mg/dl (7-20); CREATININE 12.53 mg/dl (0.61-1.24)
[2017-03-31] MEDS: ACETAMINOPHEN 1000MG/100ML IV 100 ML IVPB (09:01)
[2017-03-31] MEDS: CALCIUM ACETATE 667 MG CAP PO ×3 (10:32→17:43)
[2017-03-31] MEDS: FAMOTIDINE 20 MG TAB NGT (10:32)
[2017-03-31] MEDS: ASPIRIN 81 MG TAB GTB (10:32)
[2017-03-31] MEDS: BALSAM PERU/CASTOR OIL 60 GM TUBE TOP ×2 (10:33→20:55)
[2017-03-31] MEDS: SEVELAMER CARBONATE 0.8 GM PKT GTB ×2 (13:12→20:48)
[2017-03-31] MEDS ORDERED: AMIKACIN IV PER PHARMACY XX (13:30)
[2017-03-31] MEDS: AMIKACIN 700 MG in DEXTROSE 5% 100 ML IVPB (16:19)
[2017-03-31] MEDS: ATORVASTATIN 80 MG TAB PO (20:48)
[2017-03-31] MEDS: INSULIN GLARGINE [LANtus] 3 ML PEN SC (20:49)
[2017-04-01] MEDS: INSULIN ASPART [NOVOLOG] 3 ML PEN SC ×6 (00:58→21:10)
[2017-04-01 01:32] LABS: ALANINE AMINOTRANSFERASE 60 IU/L (13-69); ALBUMIN/GLOBULIN RATIO 0.83; ALKALINE PHOSPHATASE 192 IU/L (42-121); ANION GAP 20 (8-16); ASPARTATE AMINO TRANSFERASE 218 IU/L (15-46); BLOOD UREA NITROGEN 102 mg/dl (7-20); CALCIUM 8.8 mg/dl (8.4-10.2); CARBON DIOXIDE 24 mmol/L (21-31); CHLORIDE 94 mmol/L (97-110); CREATININE 10.53 mg/dl (0.61-1.24); GLUCOSE 205 mg/dl (70-220); POTASSIUM 3.9 mmol/L (3.5-5.1); SODIUM 134 mmol/L (135-144); TOTAL PROTEIN 6.6 g/dl (6.1-8.1)
[2017-04-01] MEDS: ACCU-CHEK XX (02:00)
[2017-04-01 06:26] LABS: PHOSPHORUS 5.6 mg/dl (2.5-4.9)
[2017-04-01 06:26] LABS: MAGNESIUM 2.3 mg/dl (1.7-2.5)
[2017-04-01] MEDS: ACETAMINOPHEN 1000MG/100ML IV 100 ML IVPB (08:36)
[2017-04-01] MEDS: ASPIRIN 81 MG TAB GTB (08:40)
[2017-04-01] MEDS: SEVELAMER CARBONATE 0.8 GM PKT GTB ×3 (08:40→21:06)
[2017-04-01] MEDS: CALCIUM ACETATE 667 MG CAP PO ×3 (08:40→17:51)
[2017-04-01] MEDS: FAMOTIDINE 20 MG TAB NGT (08:41)
[2017-04-01] MEDS: BALSAM PERU/CASTOR OIL 60 GM TUBE TOP ×2 (08:52→21:07)
[2017-04-01] MEDS: ATORVASTATIN 80 MG TAB PO (21:06)
[2017-04-01] MEDS: INSULIN GLARGINE [LANtus] 3 ML PEN SC (21:09)
[2017-04-01 21:33] LABS: HEPATITIS B SURFACE ANTIGEN NEGATIVE (NEGATIVE)
[2017-04-01 21:51] LABS: HEPATITIS B CORE ANTIBODY NEGATIVE (NEGATIVE)
[2017-04-02] MEDS: ACETAMINOPHEN 325 MG TAB PO (00:02)
[2017-04-02] MEDS: ACCU-CHEK XX (01:17)
[2017-04-02] MEDS: INSULIN ASPART [NOVOLOG] 3 ML PEN SC ×6 (01:17→21:00)
[2017-04-02 05:49] LABS: ADD MAN DIFF? NO
[2017-04-02 06:05] LABS: WHITE BLOOD COUNT 10.7 10^3/ul (4.8-10.8)
[2017-04-02 06:05] LABS: BASOPHIL # 0.1 10^3/ul (0.0-0.1); BASOPHILS % 0.5 % (0.0-2.0); EOSINOPHILS # 0.5 10^3/ul (0.0-0.5); EOSINOPHILS % 5.1 % (0.0-7.0); HEMATOCRIT 29.1 % (42.0-52.0); HEMOGLOBIN 9.2 g/dl (14.0-18.0); LYMPHOCYTES % 9.4 % (15.0-51.0); MEAN CORPUSCULAR HEMOGLOBIN 27.2 pg (29.0-33.0); MEAN CORPUSCULAR HGB CONC 31.6 g/dl (32.0-37.0); MEAN CORPUSCULAR VOLUME 86.1 fl (82.0-101.0); MEAN PLATELET VOLUME 13.4 fl (7.4-10.4); MONOCYTE # 0.8 10^3/ul (0.3-0.9); MONOCYTES % 7.2 % (0.0-11.0); NEUTROPHIL # 8.3 10^3/ul (1.6-7.5); NEUTROPHILS % 77.1 % (39.0-77.0); PLATELET COUNT 238 10^3/UL (140-415); POSITIVE DIFF @See below; RED BLOOD COUNT 3.38 10^6/ul (4.70-6.10); RED CELL DISTRIBUTION WIDTH 15.8 % (11.5-14.5)
[2017-04-02] MEDS: CALCIUM ACETATE 667 MG CAP PO ×3 (06:41→17:07)
[2017-04-02 06:46] LABS: ANION GAP 25 (8-16); CALCIUM 8.6 mg/dl (8.4-10.2); CARBON DIOXIDE 21 mmol/L (21-31); CHLORIDE 94 mmol/L (97-110); CREATININE 12.19 mg/dl (0.61-1.24); GLUCOSE 147 mg/dl (70-220); POTASSIUM 4.3 mmol/L (3.5-5.1); SODIUM 136 mmol/L (135-144)
[2017-04-02 06:54] LABS: BLOOD UREA NITROGEN 127 mg/dl (7-20)
[2017-04-02] MEDS: SEVELAMER CARBONATE 0.8 GM PKT GTB ×3 (08:51→22:31)
[2017-04-02] MEDS: FAMOTIDINE 20 MG TAB NGT (08:51)
[2017-04-02] MEDS: ASPIRIN 81 MG TAB GTB (08:51)
[2017-04-02] MEDS: BALSAM PERU/CASTOR OIL 60 GM TUBE TOP ×2 (08:52→22:30)
[2017-04-02 12:46] LABS: MITOCHONDRIAL TB NEGATIVE (NEGATIVE); SMOOTH MUSCLE AB SCREEN NEGATIVE (NEGATIVE)
[2017-04-02 17:55] LABS: ANA SCREEN POSITIVE (NEGATIVE)
[2017-04-02 19:26] LABS: ANA PATTERN SPECKLED
[2017-04-02] MEDS: LOSARTAN 25 MG TAB GTB (21:00)
[2017-04-02] MEDS: ATORVASTATIN 80 MG TAB PO (22:12)
[2017-04-02] MEDS: INSULIN GLARGINE [LANtus] 3 ML PEN SC (22:33)
[2017-04-03] MEDS: INSULIN ASPART [NOVOLOG] 3 ML PEN SC ×6 (01:49→21:41)
[2017-04-03] MEDS: ACCU-CHEK XX (02:00)
[2017-04-03] MEDS: CALCIUM ACETATE 667 MG CAP PO ×3 (07:55→17:07)
[2017-04-03] MEDS: SEVELAMER CARBONATE 0.8 GM PKT GTB ×3 (08:08→21:37)
[2017-04-03] MEDS: FAMOTIDINE 20 MG TAB NGT ×2 (08:08→12:11)
[2017-04-03] MEDS: LOSARTAN 25 MG TAB GTB ×2 (08:08→21:37)
[2017-04-03] MEDS: ASPIRIN 81 MG TAB GTB ×2 (08:09→12:11)
[2017-04-03] MEDS: BALSAM PERU/CASTOR OIL 60 GM TUBE TOP ×2 (08:53→21:42)
[2017-04-03] MEDS: HEPARIN 1000 UNITS/ML 10 ML INJ CATHETER (09:56)
[2017-04-03 13:36] LABS: ADD MAN DIFF? NO
[2017-04-03 13:43] LABS: WHITE BLOOD COUNT 9.4 10^3/ul (4.8-10.8)
[2017-04-03 13:43] LABS: BASOPHIL # 0.1 10^3/ul (0.0-0.1); BASOPHILS % 0.5 % (0.0-2.0); EOSINOPHILS # 0.4 10^3/ul (0.0-0.5); EOSINOPHILS % 3.9 % (0.0-7.0); HEMATOCRIT 30.4 % (42.0-52.0); HEMOGLOBIN 9.7 g/dl (14.0-18.0); LYMPHOCYTES % 10.5 % (15.0-51.0); MEAN CORPUSCULAR HEMOGLOBIN 27.3 pg (29.0-33.0); MEAN CORPUSCULAR HGB CONC 31.9 g/dl (32.0-37.0); MEAN CORPUSCULAR VOLUME 85.6 fl (82.0-101.0); MEAN PLATELET VOLUME 12.1 fl (7.4-10.4); MONOCYTE # 0.7 10^3/ul (0.3-0.9); MONOCYTES % 7.5 % (0.0-11.0); NEUTROPHIL # 7.1 10^3/ul (1.6-7.5); NEUTROPHILS % 75.5 % (39.0-77.0); PLATELET COUNT 303 10^3/UL (140-415); RED BLOOD COUNT 3.55 10^6/ul (4.70-6.10); RED CELL DISTRIBUTION WIDTH 15.4 % (11.5-14.5)
[2017-04-03 14:08] LABS: ALANINE AMINOTRANSFERASE 38 IU/L (13-69); ALBUMIN 3.4 g/dl (3.3-4.9); ALBUMIN/GLOBULIN RATIO 0.91; ALKALINE PHOSPHATASE 230 IU/L (42-121); ANION GAP 20 (8-16); ASPARTATE AMINO TRANSFERASE 69 IU/L (15-46); BLOOD UREA NITROGEN 97 mg/dl (7-20); CALCIUM 9.1 mg/dl (8.4-10.2); CARBON DIOXIDE 25 mmol/L (21-31); CHLORIDE 97 mmol/L (97-110); CREATININE 9.99 mg/dl (0.61-1.24); GLUCOSE 163 mg/dl (70-220); POTASSIUM 4.4 mmol/L (3.5-5.1); SODIUM 138 mmol/L (135-144); TOTAL PROTEIN 7.1 g/dl (6.1-8.1)
[2017-04-03] MEDS: AMIKACIN 450 MG in DEXTROSE 5% 100 ML IVPB (15:08)
[2017-04-03] MEDS: ACETAMINOPHEN 325 MG TAB PO (17:07)
[2017-04-03] MEDS: ATORVASTATIN 80 MG TAB PO (21:37)
[2017-04-03] MEDS: INSULIN GLARGINE [LANtus] 3 ML PEN SC (21:41)
[2017-04-04] MEDS: INSULIN ASPART [NOVOLOG] 3 ML PEN SC ×6 (01:36→21:48)
[2017-04-04] MEDS: ACCU-CHEK XX (01:51)
[2017-04-04] MEDS: CALCIUM ACETATE 667 MG CAP PO ×3 (07:55→17:51)
[2017-04-04] MEDS: LOSARTAN 25 MG TAB GTB ×2 (08:33→21:18)
[2017-04-04] MEDS: SEVELAMER CARBONATE 0.8 GM PKT GTB ×3 (08:34→21:19)
[2017-04-04] MEDS: FAMOTIDINE 20 MG TAB NGT (08:34)
[2017-04-04] MEDS: ASPIRIN 81 MG TAB GTB (08:34)
[2017-04-04] MEDS: BALSAM PERU/CASTOR OIL 60 GM TUBE TOP ×2 (09:15→21:19)
[2017-04-04 11:00] LABS: ANION GAP 24 (8-16); CALCIUM 8.7 mg/dl (8.4-10.2); CARBON DIOXIDE 23 mmol/L (21-31); CHLORIDE 95 mmol/L (97-110); CREATININE 11.56 mg/dl (0.61-1.24); GLUCOSE 161 mg/dl (70-220); POTASSIUM 4.9 mmol/L (3.5-5.1); SODIUM 137 mmol/L (135-144)
[2017-04-04 11:19] LABS: BLOOD UREA NITROGEN 119 mg/dl (7-20)
[2017-04-04] MEDS: HEPARIN 1000 UNITS/ML 10 ML INJ CATHETER (12:14)
[2017-04-04] MEDS: ACETAMINOPHEN 325 MG TAB PO (13:28)
[2017-04-04] MEDS: AMIKACIN 450 MG in DEXTROSE 5% 100 ML IVPB (15:28)
[2017-04-04] MEDS: ATORVASTATIN 80 MG TAB PO (21:17)
[2017-04-04] MEDS: INSULIN GLARGINE [LANtus] 3 ML PEN SC (21:48)
[2017-04-05] MEDS: ACCU-CHEK XX (01:51)
[2017-04-05] MEDS: INSULIN ASPART [NOVOLOG] 3 ML PEN SC ×6 (02:07→21:59)
[2017-04-05 09:15] LABS: ANION GAP 24 (8-16); BLOOD UREA NITROGEN 106 mg/dl (7-20); CALCIUM 8.7 mg/dl (8.4-10.2); CARBON DIOXIDE 23 mmol/L (21-31); CHLORIDE 96 mmol/L (97-110); CREATININE 9.35 mg/dl (0.61-1.24); GLUCOSE 158 mg/dl (70-220); POTASSIUM 5.3 mmol/L (3.5-5.1); SODIUM 138 mmol/L (135-144)
[2017-04-05] MEDS: BALSAM PERU/CASTOR OIL 60 GM TUBE TOP ×2 (09:45→21:38)
[2017-04-05] MEDS: SEVELAMER CARBONATE 0.8 GM PKT GTB ×3 (09:46→21:38)
[2017-04-05] MEDS: FAMOTIDINE 20 MG TAB NGT (09:46)
[2017-04-05] MEDS: CALCIUM ACETATE 667 MG CAP PO ×3 (09:46→17:52)
[2017-04-05] MEDS: ASPIRIN 81 MG TAB GTB (09:46)
[2017-04-05] MEDS: LOSARTAN 25 MG TAB GTB ×2 (09:46→21:37)
[2017-04-05] MEDS: ATORVASTATIN 80 MG TAB PO (21:37)
[2017-04-05] MEDS: INSULIN GLARGINE [LANtus] 3 ML PEN SC (21:59)
[2017-04-06] MEDS: ACCU-CHEK XX (01:26)
[2017-04-06] MEDS: INSULIN ASPART [NOVOLOG] 3 ML PEN SC ×6 (01:30→21:00)
[2017-04-06] MEDS: NA POLYST SULFON 15 GM/60 ML BTL PO (01:37)
[2017-04-06] MEDS: ACETAMINOPHEN 325 MG TAB PO (01:37)
[2017-04-06 07:19] LABS: ANION GAP 24 (8-16); CALCIUM 8.9 mg/dl (8.4-10.2); CARBON DIOXIDE 22 mmol/L (21-31); CHLORIDE 96 mmol/L (97-110); CREATININE 11.03 mg/dl (0.61-1.24); GLUCOSE 163 mg/dl (70-220); POTASSIUM 5.4 mmol/L (3.5-5.1); SODIUM 137 mmol/L (135-144)
[2017-04-06 07:30] LABS: BLOOD UREA NITROGEN 132 mg/dl (7-20)
[2017-04-06] MEDS: ASPIRIN 81 MG TAB GTB (09:00)
[2017-04-06] MEDS: LOSARTAN 25 MG TAB GTB ×2 (09:00→21:57)
[2017-04-06] MEDS: FAMOTIDINE 20 MG TAB NGT (10:08)
[2017-04-06] MEDS: SEVELAMER CARBONATE 0.8 GM PKT GTB ×3 (10:09→21:56)
[2017-04-06] MEDS: CALCIUM ACETATE 667 MG CAP PO ×3 (10:10→17:59)
[2017-04-06] MEDS: BALSAM PERU/CASTOR OIL 60 GM TUBE TOP ×2 (10:11→22:30)
[2017-04-06] MEDS: HEPARIN 1000 UNITS/ML 10 ML INJ CATHETER (12:01)
[2017-04-06] MEDS: AMIKACIN 450 MG in DEXTROSE 5% 100 ML IVPB (18:52)
[2017-04-06] MEDS: ATORVASTATIN 80 MG TAB PO (21:56)
[2017-04-06] MEDS: INSULIN GLARGINE [LANtus] 3 ML PEN SC (22:30)
[2017-04-07] MEDS: INSULIN ASPART [NOVOLOG] 3 ML PEN SC ×6 (01:00→22:22)
[2017-04-07] MEDS: SEVELAMER CARBONATE 0.8 GM PKT GTB ×3 (09:00→22:00)
[2017-04-07] MEDS: ASPIRIN 81 MG TAB GTB (09:45)
[2017-04-07] MEDS: CALCIUM ACETATE 667 MG CAP PO ×3 (09:45→18:07)
[2017-04-07] MEDS: LOSARTAN 25 MG TAB GTB ×2 (09:46→22:01)
[2017-04-07] MEDS: FAMOTIDINE 20 MG TAB NGT (09:46)
[2017-04-07] MEDS: BALSAM PERU/CASTOR OIL 60 GM TUBE TOP ×2 (09:46→22:02)
[2017-04-07] MEDS: ATORVASTATIN 80 MG TAB PO (22:01)
[2017-04-07] MEDS: INSULIN GLARGINE [LANtus] 3 ML PEN SC (22:25)
[2017-04-08] MEDS: INSULIN ASPART [NOVOLOG] 3 ML PEN SC ×6 (01:51→21:19)
[2017-04-08] MEDS: SEVELAMER CARBONATE 0.8 GM PKT GTB ×3 (09:15→21:08)
[2017-04-08] MEDS: CALCIUM ACETATE 667 MG CAP PO ×3 (09:15→17:05)
[2017-04-08] MEDS: LOSARTAN 25 MG TAB GTB ×2 (09:15→21:08)
[2017-04-08] MEDS: BALSAM PERU/CASTOR OIL 60 GM TUBE TOP ×2 (09:16→21:08)
[2017-04-08] MEDS: FAMOTIDINE 20 MG TAB NGT (09:16)
[2017-04-08] MEDS: ASPIRIN 81 MG TAB GTB (09:16)
[2017-04-08] MEDS: ACETAMINOPHEN 325 MG TAB PO ×2 (09:19→21:07)
[2017-04-08] MEDS: ATORVASTATIN 80 MG TAB PO (21:07)
[2017-04-08] MEDS: INSULIN GLARGINE [LANtus] 3 ML PEN SC (21:19)
[2017-04-08] MEDS ORDERED: SOD CHLORIDE 0.9% 1,000 ML IV (23:58)
[2017-04-09] MEDS ORDERED: ALBUMIN HUMAN 25% 50 ML IV
[2017-04-09] MEDS: INSULIN ASPART [NOVOLOG] 3 ML PEN SC ×6 (01:12→21:00)
[2017-04-09 08:28] LABS: ALANINE AMINOTRANSFERASE 89 IU/L (13-69); ALBUMIN 3.6 g/dl (3.3-4.9); ALBUMIN/GLOBULIN RATIO 1.09; ALKALINE PHOSPHATASE 162 IU/L (42-121); ANION GAP 31 (8-16); ASPARTATE AMINO TRANSFERASE 81 IU/L (15-46); CALCIUM 8.8 mg/dl (8.4-10.2); CARBON DIOXIDE 17 mmol/L (21-31); CHLORIDE 95 mmol/L (97-110); GLUCOSE 146 mg/dl (70-220); SODIUM 137 mmol/L (135-144); TOTAL PROTEIN 6.9 g/dl (6.1-8.1)
[2017-04-09] MEDS: SEVELAMER CARBONATE 0.8 GM PKT GTB ×3 (08:37→21:00)
[2017-04-09] MEDS: ASPIRIN 81 MG TAB GTB (08:39)
[2017-04-09] MEDS: CALCIUM ACETATE 667 MG CAP PO ×3 (08:39→17:48)
[2017-04-09] MEDS: LOSARTAN 25 MG TAB GTB ×2 (08:40→21:00)
[2017-04-09] MEDS: FAMOTIDINE 20 MG TAB NGT (08:43)
[2017-04-09] MEDS: BALSAM PERU/CASTOR OIL 60 GM TUBE TOP ×2 (08:44→21:15)
[2017-04-09 08:54] LABS: BLOOD UREA NITROGEN 187 mg/dl (7-20); CREATININE 13.64 mg/dl (0.61-1.24)
[2017-04-09 08:57] LABS: POTASSIUM 6.3 mmol/L (3.5-5.1)
[2017-04-09] MEDS: NA POLYST SULFON 15 GM/60 ML BTL PO (16:43)
[2017-04-09] MEDS: ATORVASTATIN 80 MG TAB PO (21:00)
[2017-04-09] MEDS: INSULIN GLARGINE [LANtus] 3 ML PEN SC (21:00)
[2017-04-09] MEDS: HEPARIN 1000 UNITS/ML 10 ML INJ CATHETER (23:25)
[2017-04-10] MEDS: AMIKACIN 450 MG in DEXTROSE 5% 100 ML IVPB (00:36)
[2017-04-10] MEDS: INSULIN ASPART [NOVOLOG] 3 ML PEN SC ×6 (00:52→21:00)
[2017-04-10] MEDS: CALCIUM ACETATE 667 MG CAP PO ×3 (09:23→17:28)
[2017-04-10] MEDS: LOSARTAN 25 MG TAB GTB ×2 (09:24→21:17)
[2017-04-10] MEDS: FAMOTIDINE 20 MG TAB NGT (09:24)
[2017-04-10] MEDS: SEVELAMER CARBONATE 0.8 GM PKT GTB ×3 (09:26→21:18)
[2017-04-10] MEDS: ASPIRIN 81 MG TAB GTB (09:26)
[2017-04-10] MEDS: BALSAM PERU/CASTOR OIL 60 GM TUBE TOP ×2 (09:27→20:55)
[2017-04-10 11:34] LABS: ADD MAN DIFF? NO
[2017-04-10 11:37] LABS: BASOPHIL # 0.1 10^3/ul (0.0-0.1); BASOPHILS % 1.2 % (0.0-2.0); HEMATOCRIT 28.2 % (42.0-52.0); HEMOGLOBIN 9.2 g/dl (14.0-18.0); LYMPHOCYTES # 1.1 10^3/ul (0.8-2.9); LYMPHOCYTES % 10.5 % (15.0-51.0); MEAN CORPUSCULAR HEMOGLOBIN 27.9 pg (29.0-33.0); MEAN CORPUSCULAR HGB CONC 32.6 g/dl (32.0-37.0); MEAN CORPUSCULAR VOLUME 85.5 fl (82.0-101.0); MEAN PLATELET VOLUME 11.5 fl (7.4-10.4); MONOCYTE # 0.7 10^3/ul (0.3-0.9); MONOCYTES % 6.8 % (0.0-11.0); NEUTROPHIL # 8.1 10^3/ul (1.6-7.5); NEUTROPHILS % 81.1 % (39.0-77.0); PLATELET COUNT 264 10^3/UL (140-415); RED CELL DISTRIBUTION WIDTH 15.1 % (11.5-14.5)
[2017-04-10 11:56] LABS: ANION GAP 23 (8-16); CALCIUM 8.6 mg/dl (8.4-10.2); CARBON DIOXIDE 25 mmol/L (21-31); CHLORIDE 94 mmol/L (97-110); CREATININE 9.92 mg/dl (0.61-1.24); GLUCOSE 132 mg/dl (70-220); POTASSIUM 4.4 mmol/L (3.5-5.1); SODIUM 138 mmol/L (135-144)
[2017-04-10 11:57] LABS: PHOSPHORUS 8.3 mg/dl (2.5-4.9)
[2017-04-10 11:57] LABS: MAGNESIUM 2.4 mg/dl (1.7-2.5)
[2017-04-10 12:12] LABS: BLOOD UREA NITROGEN 116 mg/dl (7-20)
[2017-04-10] MEDS: SOD CHLORIDE 0.45% 1,000 ML IV (13:01)
[2017-04-10] MEDS ORDERED: ALBUMIN HUMAN 5% 250 ML IV (19:00)
[2017-04-10] MEDS: ATORVASTATIN 80 MG TAB PO (21:18)
[2017-04-10] MEDS: INSULIN GLARGINE [LANtus] 3 ML PEN SC (21:24)
[2017-04-11] MEDS: INSULIN ASPART [NOVOLOG] 3 ML PEN SC ×6 (01:00→20:51)
[2017-04-11 07:24] LABS: ADD MAN DIFF? NO
[2017-04-11 07:27] LABS: BASOPHIL # 0.1 10^3/ul (0.0-0.1); BASOPHILS % 0.9 % (0.0-2.0); EOSINOPHILS % 0.2 % (0.0-7.0); HEMATOCRIT 28.1 % (42.0-52.0); HEMOGLOBIN 8.8 g/dl (14.0-18.0); LYMPHOCYTES # 1.3 10^3/ul (0.8-2.9); LYMPHOCYTES % 14.2 % (15.0-51.0); MEAN CORPUSCULAR HGB CONC 31.3 g/dl (32.0-37.0); MEAN CORPUSCULAR VOLUME 86.2 fl (82.0-101.0); MEAN PLATELET VOLUME 11.8 fl (7.4-10.4); MONOCYTE # 0.7 10^3/ul (0.3-0.9); MONOCYTES % 7.2 % (0.0-11.0); NEUTROPHIL # 6.9 10^3/ul (1.6-7.5); NEUTROPHILS % 77.1 % (39.0-77.0); PLATELET COUNT 257 10^3/UL (140-415); RED BLOOD COUNT 3.26 10^6/ul (4.70-6.10); RED CELL DISTRIBUTION WIDTH 14.7 % (11.5-14.5)
[2017-04-11] MEDS: CALCIUM ACETATE 667 MG CAP PO ×3 (07:55→17:55)
[2017-04-11 07:58] LABS: PHOSPHORUS 9.6 mg/dl (2.5-4.9)
[2017-04-11 07:58] LABS: MAGNESIUM 2.5 mg/dl (1.7-2.5)
[2017-04-11 08:12] LABS: ANION GAP 24 (8-16); CALCIUM 8.7 mg/dl (8.4-10.2); CARBON DIOXIDE 24 mmol/L (21-31); CHLORIDE 93 mmol/L (97-110); CREATININE 10.67 mg/dl (0.61-1.24); GLUCOSE 115 mg/dl (70-220); POTASSIUM 4.6 mmol/L (3.5-5.1); SODIUM 136 mmol/L (135-144)
[2017-04-11 08:26] LABS: BLOOD UREA NITROGEN 134 mg/dl (7-20)
[2017-04-11] MEDS: LOSARTAN 25 MG TAB GTB ×2 (08:56→22:04)
[2017-04-11] MEDS: ASPIRIN 81 MG TAB GTB (08:56)
[2017-04-11] MEDS: SEVELAMER CARBONATE 0.8 GM PKT GTB ×3 (08:57→22:03)
[2017-04-11] MEDS: SOD CHLORIDE 0.45% 1,000 ML IV (08:57)
[2017-04-11] MEDS: FAMOTIDINE 20 MG TAB NGT (08:58)
[2017-04-11] MEDS: BALSAM PERU/CASTOR OIL 60 GM TUBE TOP ×2 (09:00→20:21)
[2017-04-11] MEDS: HEPARIN 1000 UNITS/ML 10 ML INJ CATHETER (09:34)
[2017-04-11] MEDS: AMIKACIN 450 MG in DEXTROSE 5% 100 ML IVPB (20:22)
[2017-04-11] MEDS: INSULIN GLARGINE [LANtus] 3 ML PEN SC (20:54)
[2017-04-11] MEDS: ATORVASTATIN 80 MG TAB PO (22:03)
[2017-04-12] MEDS: INSULIN ASPART [NOVOLOG] 3 ML PEN SC ×5 (01:40→17:00)
[2017-04-12] MEDS: SOD CHLORIDE 0.45% 1,000 ML IV (05:41)
[2017-04-12 06:30] LABS: ADD MAN DIFF? NO
[2017-04-12 06:44] LABS: WHITE BLOOD COUNT 10.5 10^3/ul (4.8-10.8)
[2017-04-12 06:44] LABS: BASOPHIL # 0.1 10^3/ul (0.0-0.1); BASOPHILS % 1.2 % (0.0-2.0); HEMATOCRIT 28.5 % (42.0-52.0); HEMOGLOBIN 9.2 g/dl (14.0-18.0); LYMPHOCYTES # 1.2 10^3/ul (0.8-2.9); LYMPHOCYTES % 11.7 % (15.0-51.0); MEAN CORPUSCULAR HGB CONC 32.3 g/dl (32.0-37.0); MEAN CORPUSCULAR VOLUME 86.6 fl (82.0-101.0); MEAN PLATELET VOLUME 12.1 fl (7.4-10.4); MONOCYTE # 0.8 10^3/ul (0.3-0.9); MONOCYTES % 7.5 % (0.0-11.0); NEUTROPHIL # 8.3 10^3/ul (1.6-7.5); NEUTROPHILS % 79.2 % (39.0-77.0); PLATELET COUNT 257 10^3/UL (140-415); RED BLOOD COUNT 3.29 10^6/ul (4.70-6.10); RED CELL DISTRIBUTION WIDTH 14.9 % (11.5-14.5)
[2017-04-12 07:10] LABS: MAGNESIUM 2.5 mg/dl (1.7-2.5)
[2017-04-12 07:14] LABS: ANION GAP 21 (8-16); BLOOD UREA NITROGEN 97 mg/dl (7-20); CARBON DIOXIDE 24 mmol/L (21-31); CHLORIDE 96 mmol/L (97-110); CREATININE 8.81 mg/dl (0.61-1.24); GLUCOSE 133 mg/dl (70-220); POTASSIUM 4.8 mmol/L (3.5-5.1); SODIUM 136 mmol/L (135-144)
[2017-04-12] MEDS: FAMOTIDINE 20 MG TAB NGT (09:38)
[2017-04-12] MEDS: SEVELAMER CARBONATE 0.8 GM PKT GTB ×3 (09:38→21:46)
[2017-04-12] MEDS: ASPIRIN 81 MG TAB GTB (09:39)
[2017-04-12] MEDS: CALCIUM ACETATE 667 MG CAP PO ×3 (09:39→17:18)
[2017-04-12] MEDS: LOSARTAN 25 MG TAB GTB ×2 (09:40→21:46)
[2017-04-12] MEDS: BALSAM PERU/CASTOR OIL 60 GM TUBE TOP ×2 (09:40→21:47)
[2017-04-12] MEDS ORDERED: AMIKACIN IV PER PHARMACY XX (15:00)
[2017-04-12] MEDS: ATORVASTATIN 80 MG TAB PO (21:46)
[2017-04-12] MEDS: INSULIN GLARGINE [LANtus] 3 ML PEN SC (21:55)
[2017-04-12] MEDS: morphine 2 MG INJ IV (22:28)
[2017-04-13] MEDS: SOD CHLORIDE 0.45% 1,000 ML IV ×2 (00:55→21:39)
[2017-04-13] MEDS: INSULIN ASPART [NOVOLOG] 3 ML PEN SC ×4 (05:50→18:00)
[2017-04-13 07:25] LABS: ADD MAN DIFF? NO
[2017-04-13 07:32] LABS: BASOPHIL # 0.1 10^3/ul (0.0-0.1); BASOPHILS % 0.8 % (0.0-2.0); EOSINOPHILS # 0.1 10^3/ul (0.0-0.5); EOSINOPHILS % 0.7 % (0.0-7.0); HEMATOCRIT 25.7 % (42.0-52.0); HEMOGLOBIN 8.1 g/dl (14.0-18.0); LYMPHOCYTES # 1.2 10^3/ul (0.8-2.9); LYMPHOCYTES % 13.2 % (15.0-51.0); MEAN CORPUSCULAR HEMOGLOBIN 27.4 pg (29.0-33.0); MEAN CORPUSCULAR HGB CONC 31.5 g/dl (32.0-37.0); MEAN CORPUSCULAR VOLUME 86.8 fl (82.0-101.0); MONOCYTE # 0.6 10^3/ul (0.3-0.9); MONOCYTES % 7.3 % (0.0-11.0); NEUTROPHIL # 6.8 10^3/ul (1.6-7.5); NEUTROPHILS % 77.8 % (39.0-77.0); PLATELET COUNT 226 10^3/UL (140-415); POSITIVE DIFF @See below; RED BLOOD COUNT 2.96 10^6/ul (4.70-6.10); RED CELL DISTRIBUTION WIDTH 14.8 % (11.5-14.5)
[2017-04-13 07:32] LABS: WHITE BLOOD COUNT 8.7 10^3/ul (4.8-10.8)
[2017-04-13 07:49] LABS: ANION GAP 22 (8-16); CALCIUM 8.9 mg/dl (8.4-10.2); CARBON DIOXIDE 21 mmol/L (21-31); CHLORIDE 94 mmol/L (97-110); CREATININE 10.31 mg/dl (0.61-1.24); GLUCOSE 126 mg/dl (70-220); POTASSIUM 5.1 mmol/L (3.5-5.1); SODIUM 132 mmol/L (135-144)
[2017-04-13 07:51] LABS: PHOSPHORUS 9.7 mg/dl (2.5-4.9)
[2017-04-13 07:51] LABS: MAGNESIUM 2.5 mg/dl (1.7-2.5)
[2017-04-13 07:55] LABS: URIC ACID 7.2 mg/dl (3.1-7.9)
[2017-04-13 07:57] LABS: BLOOD UREA NITROGEN 124 mg/dl (7-20)
[2017-04-13] MEDS: SEVELAMER CARBONATE 0.8 GM PKT GTB ×3 (09:00→21:38)
[2017-04-13] MEDS: LOSARTAN 25 MG TAB GTB ×2 (09:00→21:39)
[2017-04-13] MEDS: ACETAMINOPHEN 325 MG TAB PO (11:03)
[2017-04-13] MEDS: CALCIUM ACETATE 667 MG CAP PO ×3 (11:04→19:39)
[2017-04-13] MEDS: ASPIRIN 81 MG TAB GTB (11:05)
[2017-04-13] MEDS: FAMOTIDINE 20 MG TAB NGT (11:05)
[2017-04-13] MEDS: BALSAM PERU/CASTOR OIL 60 GM TUBE TOP ×2 (11:05→21:46)
[2017-04-13] MEDS: morphine 2 MG INJ IV ×2 (14:52→22:24)
[2017-04-13] MEDS: HEPARIN 1000 UNITS/ML 10 ML INJ CATHETER (15:00)
[2017-04-13] MEDS: AMIKACIN 450 MG in DEXTROSE 5% 100 ML IVPB (16:55)
[2017-04-13] MEDS: ATORVASTATIN 80 MG TAB PO (21:38)
[2017-04-13] MEDS: INSULIN GLARGINE [LANtus] 3 ML PEN SC (21:42)
[2017-04-14] MEDS: INSULIN ASPART [NOVOLOG] 3 ML PEN SC ×4 (06:50→18:00)
[2017-04-14 07:08] LABS: ADD MAN DIFF? NO
[2017-04-14 07:11] LABS: BASOPHIL # 0.1 10^3/ul (0.0-0.1); BASOPHILS % 1.2 % (0.0-2.0); EOSINOPHILS # 0.1 10^3/ul (0.0-0.5); EOSINOPHILS % 0.6 % (0.0-7.0); HEMATOCRIT 25.4 % (42.0-52.0); HEMOGLOBIN 8.1 g/dl (14.0-18.0); LYMPHOCYTES % 12.5 % (15.0-51.0); MEAN CORPUSCULAR HEMOGLOBIN 27.6 pg (29.0-33.0); MEAN CORPUSCULAR HGB CONC 31.9 g/dl (32.0-37.0); MEAN CORPUSCULAR VOLUME 86.7 fl (82.0-101.0); MONOCYTE # 0.6 10^3/ul (0.3-0.9); MONOCYTES % 7.4 % (0.0-11.0); NEUTROPHIL # 6.3 10^3/ul (1.6-7.5); NEUTROPHILS % 78.1 % (39.0-77.0); PLATELET COUNT 230 10^3/UL (140-415); RED BLOOD COUNT 2.93 10^6/ul (4.70-6.10); RED CELL DISTRIBUTION WIDTH 14.6 % (11.5-14.5)
[2017-04-14 07:36] LABS: PHOSPHORUS 6.9 mg/dl (2.5-4.9)
[2017-04-14 07:36] LABS: MAGNESIUM 2.2 mg/dl (1.7-2.5)
[2017-04-14 08:18] LABS: BLOOD UREA NITROGEN 84 mg/dl (7-20); CALCIUM 9.1 mg/dl (8.4-10.2); CARBON DIOXIDE 23 mmol/L (21-31); CHLORIDE 95 mmol/L (97-110); CREATININE 7.72 mg/dl (0.61-1.24); GLUCOSE 144 mg/dl (70-220); SODIUM 133 mmol/L (135-144)
[2017-04-14 08:19] LABS: ANION GAP 20 (8-16); POTASSIUM 4.6 mmol/L (3.5-5.1)
[2017-04-14] MEDS: SEVELAMER CARBONATE 0.8 GM PKT GTB ×3 (08:52→21:45)
[2017-04-14] MEDS: BALSAM PERU/CASTOR OIL 60 GM TUBE TOP ×2 (08:53→21:46)
[2017-04-14] MEDS: FAMOTIDINE 20 MG TAB NGT (08:53)
[2017-04-14] MEDS: LOSARTAN 25 MG TAB GTB ×2 (08:53→21:47)
[2017-04-14] MEDS: CALCIUM ACETATE 667 MG CAP PO ×3 (08:53→18:12)
[2017-04-14] MEDS: ASPIRIN 81 MG TAB GTB (08:53)
[2017-04-14] MEDS: ARTIFICIAL TEARS 15 ML OPH BOTH EYES ×3 (13:00→21:48)
[2017-04-14] MEDS: SOD CHLORIDE 0.45% 1,000 ML IV (14:24)
[2017-04-14] MEDS: ATORVASTATIN 80 MG TAB PO (21:46)
[2017-04-14] MEDS: INSULIN GLARGINE [LANtus] 3 ML PEN SC (22:07)
[2017-04-15] MEDS: INSULIN ASPART [NOVOLOG] 3 ML PEN SC ×5 (01:05→23:18)
[2017-04-15] MEDS: morphine 2 MG INJ IV ×2 (01:09→13:01)
[2017-04-15 06:18] LABS: ADD MAN DIFF? NO
[2017-04-15 06:25] LABS: BASOPHIL # 0.1 10^3/ul (0.0-0.1); BASOPHILS % 1.3 % (0.0-2.0); EOSINOPHILS # 0.1 10^3/ul (0.0-0.5); EOSINOPHILS % 1.7 % (0.0-7.0); HEMATOCRIT 26.6 % (42.0-52.0); HEMOGLOBIN 8.6 g/dl (14.0-18.0); LYMPHOCYTES # 1.1 10^3/ul (0.8-2.9); MEAN CORPUSCULAR HGB CONC 32.3 g/dl (32.0-37.0); MEAN CORPUSCULAR VOLUME 86.6 fl (82.0-101.0); MEAN PLATELET VOLUME 11.8 fl (7.4-10.4); MONOCYTE # 0.5 10^3/ul (0.3-0.9); MONOCYTES % 7.3 % (0.0-11.0); NEUTROPHIL # 4.5 10^3/ul (1.6-7.5); NEUTROPHILS % 71.5 % (39.0-77.0); PLATELET COUNT 226 10^3/UL (140-415); RED BLOOD COUNT 3.07 10^6/ul (4.70-6.10); RED CELL DISTRIBUTION WIDTH 14.6 % (11.5-14.5)
[2017-04-15 06:25] LABS: WHITE BLOOD COUNT 6.3 10^3/ul (4.8-10.8)
[2017-04-15] MEDS: SOD CHLORIDE 0.45% 1,000 ML IV (06:43)
[2017-04-15 07:01] LABS: ANION GAP 19 (8-16); BLOOD UREA NITROGEN 108 mg/dl (7-20); CARBON DIOXIDE 24 mmol/L (21-31); CHLORIDE 93 mmol/L (97-110); CREATININE 9.06 mg/dl (0.61-1.24); GLUCOSE 125 mg/dl (70-220); POTASSIUM 4.8 mmol/L (3.5-5.1); SODIUM 131 mmol/L (135-144)
[2017-04-15 07:06] LABS: PHOSPHORUS 7.9 mg/dl (2.5-4.9)
[2017-04-15 07:06] LABS: MAGNESIUM 2.3 mg/dl (1.7-2.5)
[2017-04-15 07:47] LABS: CALCIUM 8.9 mg/dl (8.4-10.2)
[2017-04-15] MEDS: LOSARTAN 25 MG TAB GTB ×2 (09:00→21:52)
[2017-04-15] MEDS: ASPIRIN 81 MG TAB GTB (09:03)
[2017-04-15] MEDS: FAMOTIDINE 20 MG TAB NGT (09:03)
[2017-04-15] MEDS: ACETAMINOPHEN 325 MG TAB PO (09:03)
[2017-04-15] MEDS: SEVELAMER CARBONATE 0.8 GM PKT GTB ×3 (09:03→21:53)
[2017-04-15] MEDS: CALCIUM ACETATE 667 MG CAP PO ×3 (09:03→18:12)
[2017-04-15] MEDS: ARTIFICIAL TEARS 15 ML OPH BOTH EYES ×4 (09:04→21:52)
[2017-04-15] MEDS: BALSAM PERU/CASTOR OIL 60 GM TUBE TOP ×2 (09:05→21:53)
[2017-04-15] MEDS: hydrALAzine 20 MG INJ IV (16:09)
[2017-04-15] MEDS: HEPARIN 1000 UNITS/ML 10 ML INJ CATHETER (17:10)
[2017-04-15] MEDS ORDERED: morphine LIQ (10 MG/5 ML) CUP PO (17:30)
[2017-04-15] MEDS: AMIKACIN 450 MG in DEXTROSE 5% 100 ML IVPB (18:29)
[2017-04-15] MEDS: ATORVASTATIN 80 MG TAB PO (21:51)
[2017-04-15] MEDS: INSULIN GLARGINE [LANtus] 3 ML PEN SC (21:57)
[2017-04-16] MEDS: INSULIN ASPART [NOVOLOG] 3 ML PEN SC ×4 (05:39→23:53)
[2017-04-16] MEDS: SOD CHLORIDE 0.45% 1,000 ML IV (09:00)
[2017-04-16] MEDS: LOSARTAN 25 MG TAB GTB ×2 (09:14→21:19)
[2017-04-16] MEDS: CALCIUM ACETATE 667 MG CAP PO ×3 (09:14→18:14)
[2017-04-16] MEDS: SEVELAMER CARBONATE 0.8 GM PKT GTB ×3 (09:14→21:20)
[2017-04-16] MEDS: FAMOTIDINE 20 MG TAB NGT (09:15)
[2017-04-16] MEDS: ARTIFICIAL TEARS 15 ML OPH BOTH EYES ×4 (09:15→21:21)
[2017-04-16] MEDS: BALSAM PERU/CASTOR OIL 60 GM TUBE TOP ×2 (09:15→21:21)
[2017-04-16] MEDS: ASPIRIN 81 MG TAB GTB (09:15)
[2017-04-16] MEDS: hydrALAzine 20 MG INJ IV (13:31)
[2017-04-16 17:42] LABS: ANION GAP 18 (8-16); BLOOD UREA NITROGEN 86 mg/dl (7-20); CALCIUM 8.9 mg/dl (8.4-10.2); CARBON DIOXIDE 25 mmol/L (21-31); CHLORIDE 93 mmol/L (97-110); GLUCOSE 119 mg/dl (70-220); POTASSIUM 4.7 mmol/L (3.5-5.1); SODIUM 131 mmol/L (135-144)
[2017-04-16] MEDS: ATORVASTATIN 80 MG TAB PO (21:19)
[2017-04-16] MEDS: INSULIN GLARGINE [LANtus] 3 ML PEN SC (21:36)
[2017-04-17] MEDS: INSULIN ASPART [NOVOLOG] 3 ML PEN SC ×3 (06:00→17:23)
[2017-04-17] MEDS: CALCIUM ACETATE 667 MG CAP PO ×3 (07:10→17:24)
[2017-04-17] MEDS: SEVELAMER CARBONATE 0.8 GM PKT GTB ×2 (08:47→13:35)
[2017-04-17] MEDS: BALSAM PERU/CASTOR OIL 60 GM TUBE TOP ×2 (08:48→21:00)
[2017-04-17] MEDS: ASPIRIN 81 MG TAB GTB (08:48)
[2017-04-17] MEDS: FAMOTIDINE 20 MG TAB NGT (08:48)
[2017-04-17] MEDS: ARTIFICIAL TEARS 15 ML OPH BOTH EYES ×4 (08:48→21:00)
[2017-04-17] MEDS: LOSARTAN 25 MG TAB GTB (09:00)
[2017-04-17 09:02] LABS: ADD MAN DIFF? NO
[2017-04-17 09:08] LABS: BASOPHIL # 0.1 10^3/ul (0.0-0.1); BASOPHILS % 1.3 % (0.0-2.0); EOSINOPHILS # 0.1 10^3/ul (0.0-0.5); EOSINOPHILS % 1.4 % (0.0-7.0); HEMATOCRIT 28.1 % (42.0-52.0); HEMOGLOBIN 8.6 g/dl (14.0-18.0); LYMPHOCYTES % 17.2 % (15.0-51.0); MEAN CORPUSCULAR HEMOGLOBIN 27.7 pg (29.0-33.0); MEAN CORPUSCULAR HGB CONC 30.6 g/dl (32.0-37.0); MEAN CORPUSCULAR VOLUME 90.4 fl (82.0-101.0); MEAN PLATELET VOLUME 11.2 fl (7.4-10.4); MONOCYTE # 0.4 10^3/ul (0.3-0.9); MONOCYTES % 7.6 % (0.0-11.0); NEUTROPHILS % 72.3 % (39.0-77.0); PLATELET COUNT 198 10^3/UL (140-415); RED BLOOD COUNT 3.11 10^6/ul (4.70-6.10); RED CELL DISTRIBUTION WIDTH 14.7 % (11.5-14.5)
[2017-04-17 09:08] LABS: WHITE BLOOD COUNT 5.5 10^3/ul (4.8-10.8)
[2017-04-17 09:30] LABS: ANION GAP 21 (8-16); BLOOD UREA NITROGEN 102 mg/dl (7-20); CARBON DIOXIDE 21 mmol/L (21-31); CHLORIDE 93 mmol/L (97-110); CREATININE 8.69 mg/dl (0.61-1.24); GLUCOSE 132 mg/dl (70-220); POTASSIUM 5.2 mmol/L (3.5-5.1); SODIUM 130 mmol/L (135-144)
[2017-04-17] MEDS ORDERED: SODIUM CHLORIDE 0.9% 1L BAG IV (10:00)
[2017-04-17] MEDS ORDERED: HEPARIN 1000 UNITS/ML 10 ML INJ CATHETER (10:00)
[2017-04-17] MEDS ORDERED: MANNITOL 25% 50 ML IV (10:00)
[2017-04-17] MEDS ORDERED: ALBUMIN HUMAN 25% 50 ML IV (10:00)
[2017-04-17] MEDS: morphine LIQ (10 MG/5 ML) CUP GTB (11:14)
[2017-04-17] MEDS ORDERED: GABAPENTIN (50 MG/ML PO SYG) GTB (17:00)
[2017-04-17 17:14] LABS: URIC ACID 6.9 mg/dl (3.1-7.9)
[2017-04-17] MEDS: GABAPENTIN (50 MG/ML PO SYG) PO (18:48)
[2017-04-17] MEDS: ALTEPLASE (CATHFLO) 2 MG INJ CATHETER ×2 (19:04)
[2017-04-17] MEDS: INSULIN GLARGINE [LANtus] 3 ML PEN SC (21:00)
[2017-04-17] MEDS: HEPARIN 1000 UNITS/ML 10 ML INJ CATHETER (23:18)
[2017-04-18] MEDS: ATORVASTATIN 80 MG TAB PO ×2 (00:17→20:56)
[2017-04-18] MEDS: SEVELAMER CARBONATE 0.8 GM PKT GTB ×4 (00:17→20:57)
[2017-04-18] MEDS: LOSARTAN 25 MG TAB GTB ×3 (00:17→20:57)
[2017-04-18] MEDS: GABAPENTIN (50 MG/ML PO SYG) PO ×4 (00:26→21:00)
[2017-04-18] MEDS: INSULIN ASPART [NOVOLOG] 3 ML PEN SC ×4 (06:00→17:35)
[2017-04-18] MEDS: FAMOTIDINE 20 MG TAB NGT (08:42)
[2017-04-18] MEDS: CALCIUM ACETATE 667 MG CAP PO ×3 (08:42→17:35)
[2017-04-18] MEDS: ASPIRIN 81 MG TAB GTB (08:42)
[2017-04-18] MEDS: ARTIFICIAL TEARS 15 ML OPH BOTH EYES ×4 (08:43→20:57)
[2017-04-18] MEDS: BALSAM PERU/CASTOR OIL 60 GM TUBE TOP ×2 (08:44→20:58)
[2017-04-18 10:23] LABS: ADD MAN DIFF? NO
[2017-04-18 10:27] LABS: BASOPHIL # 0.1 10^3/ul (0.0-0.1); BASOPHILS % 1.3 % (0.0-2.0); EOSINOPHILS # 0.1 10^3/ul (0.0-0.5); EOSINOPHILS % 1.9 % (0.0-7.0); HEMATOCRIT 25.4 % (42.0-52.0); HEMOGLOBIN 8.1 g/dl (14.0-18.0); LYMPHOCYTES # 1.1 10^3/ul (0.8-2.9); LYMPHOCYTES % 15.5 % (15.0-51.0); MEAN CORPUSCULAR HEMOGLOBIN 27.9 pg (29.0-33.0); MEAN CORPUSCULAR HGB CONC 31.9 g/dl (32.0-37.0); MEAN CORPUSCULAR VOLUME 87.6 fl (82.0-101.0); MEAN PLATELET VOLUME 11.4 fl (7.4-10.4); MONOCYTE # 0.5 10^3/ul (0.3-0.9); PLATELET COUNT 235 10^3/UL (140-415); POSITIVE DIFF @See below; RED CELL DISTRIBUTION WIDTH 14.5 % (11.5-14.5)
[2017-04-18 10:27] LABS: WHITE BLOOD COUNT 6.8 10^3/ul (4.8-10.8)
[2017-04-18 11:03] LABS: ANION GAP 19 (8-16); BLOOD UREA NITROGEN 89 mg/dl (7-20); CALCIUM 8.9 mg/dl (8.4-10.2); CARBON DIOXIDE 26 mmol/L (21-31); CHLORIDE 93 mmol/L (97-110); CREATININE 7.62 mg/dl (0.61-1.24); GLUCOSE 131 mg/dl (70-220); POTASSIUM 4.8 mmol/L (3.5-5.1); SODIUM 133 mmol/L (135-144)
[2017-04-18] MEDS ORDERED: ALBUMIN HUMAN 25% 50 ML IV (20:30)
[2017-04-18] MEDS ORDERED: MANNITOL 25% 50 ML IV (20:30)
[2017-04-18] MEDS ORDERED: SODIUM CHLORIDE 0.9% 1L BAG IV (20:30)
[2017-04-18] MEDS: INSULIN GLARGINE [LANtus] 3 ML PEN SC (20:59)
[2017-04-19] MEDS: INSULIN ASPART [NOVOLOG] 3 ML PEN SC ×4 (05:37→17:49)
[2017-04-19] MEDS: LOSARTAN 25 MG TAB GTB ×2 (08:37→20:20)
[2017-04-19] MEDS: CALCIUM ACETATE 667 MG CAP PO ×3 (08:55→17:45)
[2017-04-19] MEDS: GABAPENTIN (50 MG/ML PO SYG) PO ×3 (08:55→20:21)
[2017-04-19] MEDS: BALSAM PERU/CASTOR OIL 60 GM TUBE TOP ×2 (08:56→20:21)
[2017-04-19] MEDS: ARTIFICIAL TEARS 15 ML OPH BOTH EYES ×4 (08:56→20:20)
[2017-04-19] MEDS: SEVELAMER CARBONATE 0.8 GM PKT GTB ×3 (08:56→20:20)
[2017-04-19] MEDS: FAMOTIDINE 20 MG TAB NGT (08:56)
[2017-04-19] MEDS: ASPIRIN 81 MG TAB GTB (08:57)
[2017-04-19 10:19] LABS: ADD MAN DIFF? NO
[2017-04-19 10:27] LABS: BASOPHIL # 0.1 10^3/ul (0.0-0.1); EOSINOPHILS # 0.2 10^3/ul (0.0-0.5); EOSINOPHILS % 3.3 % (0.0-7.0); HEMATOCRIT 27.6 % (42.0-52.0); HEMOGLOBIN 8.5 g/dl (14.0-18.0); LYMPHOCYTES # 1.4 10^3/ul (0.8-2.9); MEAN CORPUSCULAR HEMOGLOBIN 26.9 pg (29.0-33.0); MEAN CORPUSCULAR HGB CONC 30.8 g/dl (32.0-37.0); MEAN CORPUSCULAR VOLUME 87.3 fl (82.0-101.0); MEAN PLATELET VOLUME 11.3 fl (7.4-10.4); MONOCYTE # 0.7 10^3/ul (0.3-0.9); MONOCYTES % 9.6 % (0.0-11.0); NEUTROPHIL # 4.8 10^3/ul (1.6-7.5); NEUTROPHILS % 66.8 % (39.0-77.0); PLATELET COUNT 266 10^3/UL (140-415); RED BLOOD COUNT 3.16 10^6/ul (4.70-6.10); RED CELL DISTRIBUTION WIDTH 14.7 % (11.5-14.5)
[2017-04-19 10:27] LABS: WHITE BLOOD COUNT 7.2 10^3/ul (4.8-10.8)
[2017-04-19 10:45] LABS: ANION GAP 22 (8-16); BLOOD UREA NITROGEN 109 mg/dl (7-20); CALCIUM 9.1 mg/dl (8.4-10.2); CARBON DIOXIDE 25 mmol/L (21-31); CHLORIDE 92 mmol/L (97-110); CREATININE 9.79 mg/dl (0.61-1.24); GLUCOSE 102 mg/dl (70-220); POTASSIUM 5.3 mmol/L (3.5-5.1); SODIUM 134 mmol/L (135-144)
[2017-04-19] MEDS: HEPARIN 1000 UNITS/ML 10 ML INJ CATHETER (16:56)
[2017-04-19] MEDS: hydrALAzine 20 MG INJ IV (17:46)
[2017-04-19] MEDS: ATORVASTATIN 80 MG TAB PO (20:20)
[2017-04-19] MEDS: morphine LIQ (10 MG/5 ML) CUP GTB (20:22)
[2017-04-19] MEDS: INSULIN GLARGINE [LANtus] 3 ML PEN SC (20:39)
[2017-04-19] MEDS: HYDROmorphONE 0.5 MG/0.5 ML SYG IV (22:02)
[2017-04-20] MEDS: INSULIN ASPART [NOVOLOG] 3 ML PEN SC ×4 (06:00→17:24)
[2017-04-20 06:51] LABS: ADD MAN DIFF? NO
[2017-04-20 06:57] LABS: WHITE BLOOD COUNT 5.8 10^3/ul (4.8-10.8)
[2017-04-20 06:57] LABS: BASOPHIL # 0.1 10^3/ul (0.0-0.1); BASOPHILS % 0.9 % (0.0-2.0); EOSINOPHILS # 0.2 10^3/ul (0.0-0.5); EOSINOPHILS % 3.9 % (0.0-7.0); HEMATOCRIT 25.5 % (42.0-52.0); HEMOGLOBIN 8.1 g/dl (14.0-18.0); LYMPHOCYTES % 16.5 % (15.0-51.0); MEAN CORPUSCULAR HEMOGLOBIN 27.9 pg (29.0-33.0); MEAN CORPUSCULAR HGB CONC 31.8 g/dl (32.0-37.0); MEAN CORPUSCULAR VOLUME 87.9 fl (82.0-101.0); MEAN PLATELET VOLUME 10.4 fl (7.4-10.4); MONOCYTE # 0.6 10^3/ul (0.3-0.9); MONOCYTES % 9.8 % (0.0-11.0); NEUTROPHILS % 68.7 % (39.0-77.0); PLATELET COUNT 264 10^3/UL (140-415); RED CELL DISTRIBUTION WIDTH 14.8 % (11.5-14.5)
[2017-04-20 07:20] LABS: ANION GAP 17 (8-16); BLOOD UREA NITROGEN 69 mg/dl (7-20); CALCIUM 9.2 mg/dl (8.4-10.2); CARBON DIOXIDE 28 mmol/L (21-31); CHLORIDE 95 mmol/L (97-110); CREATININE 6.51 mg/dl (0.61-1.24); GLUCOSE 125 mg/dl (70-220); POTASSIUM 4.5 mmol/L (3.5-5.1); SODIUM 135 mmol/L (135-144)
[2017-04-20] MEDS: SEVELAMER CARBONATE 0.8 GM PKT GTB ×3 (09:00→22:29)
[2017-04-20] MEDS: CALCIUM ACETATE 667 MG CAP PO ×3 (09:01→17:25)
[2017-04-20] MEDS: ASPIRIN 81 MG TAB GTB (09:01)
[2017-04-20] MEDS: GABAPENTIN (50 MG/ML PO SYG) PO ×3 (09:01→22:29)
[2017-04-20] MEDS: ARTIFICIAL TEARS 15 ML OPH BOTH EYES ×4 (09:01→22:29)
[2017-04-20] MEDS: BALSAM PERU/CASTOR OIL 60 GM TUBE TOP ×2 (09:02→22:32)
[2017-04-20] MEDS: LOSARTAN 25 MG TAB GTB ×2 (09:02→22:31)
[2017-04-20] MEDS: FAMOTIDINE 20 MG TAB NGT (09:02)
[2017-04-20] MEDS: morphine LIQ (10 MG/5 ML) CUP GTB ×2 (14:43→22:30)
[2017-04-20] MEDS: ATORVASTATIN 80 MG TAB PO (22:30)
[2017-04-20] MEDS: INSULIN GLARGINE [LANtus] 3 ML PEN SC (23:02)
[2017-04-21] MEDS: INSULIN ASPART [NOVOLOG] 3 ML PEN SC ×5 (06:00→23:57)
[2017-04-21 07:01] LABS: ADD MAN DIFF? NO
[2017-04-21 07:03] LABS: WHITE BLOOD COUNT 6.1 10^3/ul (4.8-10.8)
[2017-04-21 07:03] LABS: BASOPHIL # 0.1 10^3/ul (0.0-0.1); EOSINOPHILS # 0.3 10^3/ul (0.0-0.5); EOSINOPHILS % 5.1 % (0.0-7.0); HEMOGLOBIN 7.8 g/dl (14.0-18.0); LYMPHOCYTES # 1.3 10^3/ul (0.8-2.9); LYMPHOCYTES % 20.8 % (15.0-51.0); MEAN CORPUSCULAR HGB CONC 31.2 g/dl (32.0-37.0); MEAN CORPUSCULAR VOLUME 89.6 fl (82.0-101.0); MEAN PLATELET VOLUME 10.9 fl (7.4-10.4); MONOCYTE # 0.5 10^3/ul (0.3-0.9); MONOCYTES % 8.2 % (0.0-11.0); NEUTROPHILS % 64.6 % (39.0-77.0); PLATELET COUNT 262 10^3/UL (140-415); RED BLOOD COUNT 2.79 10^6/ul (4.70-6.10)
[2017-04-21 07:48] LABS: ANION GAP 20 (8-16); BLOOD UREA NITROGEN 99 mg/dl (7-20); CARBON DIOXIDE 25 mmol/L (21-31); CHLORIDE 93 mmol/L (97-110); CREATININE 8.14 mg/dl (0.61-1.24); GLUCOSE 116 mg/dl (70-220); SODIUM 133 mmol/L (135-144)
[2017-04-21] MEDS: GABAPENTIN (50 MG/ML PO SYG) PO ×3 (08:55→21:00)
[2017-04-21] MEDS: CALCIUM ACETATE 667 MG CAP PO ×3 (08:55→17:45)
[2017-04-21] MEDS: SEVELAMER CARBONATE 0.8 GM PKT GTB ×3 (08:55→21:04)
[2017-04-21] MEDS: LOSARTAN 25 MG TAB GTB ×2 (08:55→21:04)
[2017-04-21] MEDS: ASPIRIN 81 MG TAB GTB (08:55)
[2017-04-21] MEDS: FAMOTIDINE 20 MG TAB NGT (08:55)
[2017-04-21] MEDS: BALSAM PERU/CASTOR OIL 60 GM TUBE TOP ×2 (08:56→21:06)
[2017-04-21] MEDS: ARTIFICIAL TEARS 15 ML OPH BOTH EYES ×4 (08:56→21:04)
[2017-04-21] MEDS: DOCUSATE SODIUM 10 MG/ML (10ML CUP) GTB (12:53)
[2017-04-21] MEDS: ATORVASTATIN 80 MG TAB PO (21:03)
[2017-04-21] MEDS: INSULIN GLARGINE [LANtus] 3 ML PEN SC (21:06)
[2017-04-21] MEDS: DIPHENHYDRAMINE 2.5 MG/ML 5ML CUP GTB (23:58)
[2017-04-22] MEDS: INSULIN ASPART [NOVOLOG] 3 ML PEN SC ×3 (05:28→17:42)
[2017-04-22 08:57] LABS: ALANINE AMINOTRANSFERASE 48 IU/L (13-69); ALBUMIN 3.2 g/dl (3.3-4.9); ALBUMIN/GLOBULIN RATIO 0.94; ALKALINE PHOSPHATASE 109 IU/L (42-121); ASPARTATE AMINO TRANSFERASE 29 IU/L (15-46); BLOOD UREA NITROGEN 117 mg/dl (7-20); CALCIUM 9.2 mg/dl (8.4-10.2); CARBON DIOXIDE 26 mmol/L (21-31); CHLORIDE 90 mmol/L (97-110); CREATININE 9.93 mg/dl (0.61-1.24); GLUCOSE 110 mg/dl (70-220); SODIUM 131 mmol/L (135-144); TOTAL PROTEIN 6.6 g/dl (6.1-8.1)
[2017-04-22] MEDS: FAMOTIDINE 20 MG TAB NGT (08:58)
[2017-04-22] MEDS: SEVELAMER CARBONATE 0.8 GM PKT GTB ×3 (08:58→21:27)
[2017-04-22] MEDS: CALCIUM ACETATE 667 MG CAP PO ×3 (08:58→17:47)
[2017-04-22] MEDS: GABAPENTIN (50 MG/ML PO SYG) PO ×3 (08:59→21:27)
[2017-04-22] MEDS: ASPIRIN 81 MG TAB GTB (08:59)
[2017-04-22] MEDS: ARTIFICIAL TEARS 15 ML OPH BOTH EYES ×4 (09:00→21:28)
[2017-04-22] MEDS: LOSARTAN 25 MG TAB GTB ×3 (09:00→21:00)
[2017-04-22] MEDS: BALSAM PERU/CASTOR OIL 60 GM TUBE TOP ×2 (09:01→21:29)
[2017-04-22 09:22] LABS: ANION GAP 20 (8-16); POTASSIUM 5.3 mmol/L (3.5-5.1)
[2017-04-22] MEDS: HEPARIN 1000 UNITS/ML 10 ML INJ CATHETER (14:05)
[2017-04-22] MEDS: ATORVASTATIN 80 MG TAB PO (21:27)
[2017-04-22] MEDS: INSULIN GLARGINE [LANtus] 3 ML PEN SC (22:59)
[2017-04-23] MEDS: morphine LIQ (10 MG/5 ML) CUP GTB (05:02)
[2017-04-23] MEDS: INSULIN ASPART [NOVOLOG] 3 ML PEN SC ×4 (06:00→17:14)
[2017-04-23] MEDS: SEVELAMER CARBONATE 0.8 GM PKT GTB ×3 (08:16→21:41)
[2017-04-23] MEDS: GABAPENTIN (50 MG/ML PO SYG) PO ×3 (08:16→21:42)
[2017-04-23] MEDS: LOSARTAN 25 MG TAB GTB ×2 (08:17→21:41)
[2017-04-23] MEDS: ASPIRIN 81 MG TAB GTB (08:17)
[2017-04-23] MEDS: FAMOTIDINE 20 MG TAB NGT (08:17)
[2017-04-23] MEDS: CALCIUM ACETATE 667 MG CAP PO ×3 (08:17→17:25)
[2017-04-23] MEDS: BALSAM PERU/CASTOR OIL 60 GM TUBE TOP ×2 (08:18→21:43)
[2017-04-23] MEDS: ARTIFICIAL TEARS 15 ML OPH BOTH EYES ×4 (08:18→21:42)
[2017-04-23 08:31] LABS: ADD MAN DIFF? NO
[2017-04-23 08:40] LABS: BASOPHIL # 0.1 10^3/ul (0.0-0.1); BASOPHILS % 0.7 % (0.0-2.0); EOSINOPHILS # 0.3 10^3/ul (0.0-0.5); EOSINOPHILS % 4.8 % (0.0-7.0); HEMATOCRIT 24.2 % (42.0-52.0); HEMOGLOBIN 7.5 g/dl (14.0-18.0); LYMPHOCYTES # 1.1 10^3/ul (0.8-2.9); LYMPHOCYTES % 15.7 % (15.0-51.0); MEAN CORPUSCULAR HEMOGLOBIN 27.8 pg (29.0-33.0); MEAN CORPUSCULAR VOLUME 89.6 fl (82.0-101.0); MEAN PLATELET VOLUME 10.6 fl (7.4-10.4); MONOCYTE # 0.5 10^3/ul (0.3-0.9); MONOCYTES % 7.5 % (0.0-11.0); NEUTROPHIL # 4.7 10^3/ul (1.6-7.5); PLATELET COUNT 292 10^3/UL (140-415); RED CELL DISTRIBUTION WIDTH 14.8 % (11.5-14.5)
[2017-04-23 08:40] LABS: WHITE BLOOD COUNT 6.7 10^3/ul (4.8-10.8)
[2017-04-23 09:00] LABS: PHOSPHORUS 5.3 mg/dl (2.5-4.9)
[2017-04-23 09:00] LABS: MAGNESIUM 2.3 mg/dl (1.7-2.5)
[2017-04-23 09:24] LABS: ANION GAP 17 (8-16); BLOOD UREA NITROGEN 89 mg/dl (7-20); CALCIUM 9.6 mg/dl (8.4-10.2); CARBON DIOXIDE 25 mmol/L (21-31); CHLORIDE 95 mmol/L (97-110); CREATININE 7.84 mg/dl (0.61-1.24); GLUCOSE 125 mg/dl (70-220); POTASSIUM 4.9 mmol/L (3.5-5.1); SODIUM 132 mmol/L (135-144)
[2017-04-23] MEDS: DOCUSATE SODIUM 10 MG/ML (10ML CUP) GTB (17:24)
[2017-04-23] MEDS ORDERED: ALBUMIN HUMAN 25% 50 ML IV (19:00)
[2017-04-23] MEDS ORDERED: SODIUM CHLORIDE 0.9% 1L BAG IV (19:00)
[2017-04-23] MEDS: ATORVASTATIN 80 MG TAB PO (21:42)
[2017-04-23] MEDS: INSULIN GLARGINE [LANtus] 3 ML PEN SC (21:47)
[2017-04-24] MEDS: INSULIN ASPART [NOVOLOG] 3 ML PEN SC ×4 (06:00→17:34)
[2017-04-24] MEDS: LOSARTAN 25 MG TAB GTB (09:00)
[2017-04-24] MEDS: GABAPENTIN (50 MG/ML PO SYG) PO ×3 (09:26→21:17)
[2017-04-24] MEDS: ASPIRIN 81 MG TAB GTB (09:26)
[2017-04-24] MEDS: CALCIUM ACETATE 667 MG CAP PO ×3 (09:27→17:35)
[2017-04-24] MEDS: SEVELAMER CARBONATE 0.8 GM PKT GTB ×3 (09:27→21:17)
[2017-04-24] MEDS: FAMOTIDINE 20 MG TAB NGT (09:28)
[2017-04-24] MEDS: ARTIFICIAL TEARS 15 ML OPH BOTH EYES ×4 (09:30→21:17)
[2017-04-24] MEDS: BALSAM PERU/CASTOR OIL 60 GM TUBE TOP ×2 (09:30→21:17)
[2017-04-24] MEDS: DOCUSATE SODIUM 10 MG/ML (10ML CUP) GTB (12:21)
[2017-04-24] MEDS: INSULIN GLARGINE [LANtus] 3 ML PEN SC (21:13)
[2017-04-24] MEDS: ATORVASTATIN 80 MG TAB PO (21:17)
[2017-04-25] MEDS: HEPARIN 1000 UNITS/ML 10 ML INJ CATHETER (00:11)
[2017-04-25] MEDS: LOSARTAN 25 MG TAB GTB ×3 (00:54→21:01)
[2017-04-25] MEDS: INSULIN ASPART [NOVOLOG] 3 ML PEN SC ×4 (05:29→17:37)
[2017-04-25 08:19] LABS: ADD MAN DIFF? NO
[2017-04-25 08:28] LABS: BASOPHILS % 0.6 % (0.0-2.0); EOSINOPHILS # 0.3 10^3/ul (0.0-0.5); EOSINOPHILS % 5.2 % (0.0-7.0); HEMATOCRIT 25.8 % (42.0-52.0); HEMOGLOBIN 7.8 g/dl (14.0-18.0); LYMPHOCYTES # 0.9 10^3/ul (0.8-2.9); MEAN CORPUSCULAR HGB CONC 30.2 g/dl (32.0-37.0); MEAN CORPUSCULAR VOLUME 89.3 fl (82.0-101.0); MEAN PLATELET VOLUME 10.5 fl (7.4-10.4); MONOCYTE # 0.5 10^3/ul (0.3-0.9); MONOCYTES % 7.4 % (0.0-11.0); NEUTROPHIL # 4.4 10^3/ul (1.6-7.5); NEUTROPHILS % 71.3 % (39.0-77.0); PLATELET COUNT 288 10^3/UL (140-415); POSITIVE DIFF @See below; RED BLOOD COUNT 2.89 10^6/ul (4.70-6.10); RED CELL DISTRIBUTION WIDTH 14.7 % (11.5-14.5)
[2017-04-25 08:28] LABS: WHITE BLOOD COUNT 6.2 10^3/ul (4.8-10.8)
[2017-04-25 08:42] LABS: ALANINE AMINOTRANSFERASE 45 IU/L (13-69); ALBUMIN 3.4 g/dl (3.3-4.9); ALBUMIN/GLOBULIN RATIO 0.97; ALKALINE PHOSPHATASE 119 IU/L (42-121); ANION GAP 16 (8-16); ASPARTATE AMINO TRANSFERASE 28 IU/L (15-46); BLOOD UREA NITROGEN 71 mg/dl (7-20); CARBON DIOXIDE 28 mmol/L (21-31); CHLORIDE 99 mmol/L (97-110); CREATININE 7.08 mg/dl (0.61-1.24); GLUCOSE 120 mg/dl (70-220); POTASSIUM 4.7 mmol/L (3.5-5.1); SODIUM 138 mmol/L (135-144); TOTAL PROTEIN 6.9 g/dl (6.1-8.1)
[2017-04-25 08:44] LABS: MAGNESIUM 2.3 mg/dl (1.7-2.5)
[2017-04-25 08:44] LABS: PHOSPHORUS 4.1 mg/dl (2.5-4.9)
[2017-04-25] MEDS: ARTIFICIAL TEARS 15 ML OPH BOTH EYES ×4 (09:00→21:00)
[2017-04-25] MEDS: ASPIRIN 81 MG TAB GTB (09:28)
[2017-04-25] MEDS: SEVELAMER CARBONATE 0.8 GM PKT GTB ×3 (09:29→21:01)
[2017-04-25] MEDS: CALCIUM ACETATE 667 MG CAP PO ×3 (09:29→17:33)
[2017-04-25] MEDS: FAMOTIDINE 20 MG TAB NGT (09:29)
[2017-04-25] MEDS: BALSAM PERU/CASTOR OIL 60 GM TUBE TOP ×2 (09:41→21:01)
[2017-04-25] MEDS: GABAPENTIN (50 MG/ML PO SYG) PO ×3 (09:43→21:01)
[2017-04-25] MEDS ORDERED: SOD CHLORIDE 0.9% 1,000 ML IV (19:46)
[2017-04-25] MEDS ORDERED: HEPARIN 1000 UNITS/ML 10 ML INJ CATHETER (20:00)
[2017-04-25] MEDS ORDERED: SODIUM CHLORIDE 0.9% 1L BAG IV (20:00)
[2017-04-25] MEDS ORDERED: MANNITOL 25% 50 ML IV (20:00)
[2017-04-25] MEDS ORDERED: ALBUMIN HUMAN 25% 50 ML IV (20:00)
[2017-04-25] MEDS: ATORVASTATIN 80 MG TAB PO (21:01)
[2017-04-25] MEDS: INSULIN GLARGINE [LANtus] 3 ML PEN SC (21:24)
[2017-04-26] MEDS: INSULIN ASPART [NOVOLOG] 3 ML PEN SC ×4 (05:36→18:00)
[2017-04-26] MEDS: ARTIFICIAL TEARS 15 ML OPH BOTH EYES ×4 (09:00→21:05)
[2017-04-26] MEDS: HEPARIN 1000 UNITS/ML 10 ML INJ CATHETER (09:06)
[2017-04-26] MEDS: GABAPENTIN (50 MG/ML PO SYG) PO ×3 (11:17→21:07)
[2017-04-26] MEDS: morphine LIQ (10 MG/5 ML) CUP GTB (11:17)
[2017-04-26] MEDS: SEVELAMER CARBONATE 0.8 GM PKT GTB ×3 (11:18→21:06)
[2017-04-26] MEDS: CALCIUM ACETATE 667 MG CAP PO ×3 (11:18→18:08)
[2017-04-26] MEDS: FAMOTIDINE 20 MG TAB NGT (11:18)
[2017-04-26] MEDS: ASPIRIN 81 MG TAB GTB (11:19)
[2017-04-26] MEDS: LOSARTAN 25 MG TAB GTB ×2 (11:20→21:05)
[2017-04-26] MEDS: BALSAM PERU/CASTOR OIL 60 GM TUBE TOP ×2 (11:22→21:07)
[2017-04-26] MEDS: ACETAMINOPHEN 325 MG TAB PO (18:08)
[2017-04-26] MEDS: ATORVASTATIN 80 MG TAB PO (21:07)
[2017-04-26] MEDS: INSULIN GLARGINE [LANtus] 3 ML PEN SC (21:42)
[2017-04-27] MEDS: INSULIN ASPART [NOVOLOG] 3 ML PEN SC ×4 (06:00→18:00)
[2017-04-27 08:24] LABS: ADD MAN DIFF? NO
[2017-04-27 08:29] LABS: BASOPHILS % 0.6 % (0.0-2.0); EOSINOPHILS # 0.3 10^3/ul (0.0-0.5); EOSINOPHILS % 4.8 % (0.0-7.0); HEMATOCRIT 23.5 % (42.0-52.0); HEMOGLOBIN 7.4 g/dl (14.0-18.0); LYMPHOCYTES # 1.2 10^3/ul (0.8-2.9); LYMPHOCYTES % 19.3 % (15.0-51.0); MEAN CORPUSCULAR HEMOGLOBIN 27.7 pg (29.0-33.0); MEAN CORPUSCULAR HGB CONC 31.5 g/dl (32.0-37.0); MEAN PLATELET VOLUME 10.7 fl (7.4-10.4); MONOCYTE # 0.7 10^3/ul (0.3-0.9); MONOCYTES % 10.7 % (0.0-11.0); NEUTROPHIL # 4.1 10^3/ul (1.6-7.5); NEUTROPHILS % 64.4 % (39.0-77.0); PLATELET COUNT 295 10^3/UL (140-415); RED BLOOD COUNT 2.67 10^6/ul (4.70-6.10); RED CELL DISTRIBUTION WIDTH 14.9 % (11.5-14.5)
[2017-04-27 08:29] LABS: WHITE BLOOD COUNT 6.3 10^3/ul (4.8-10.8)
[2017-04-27 08:47] LABS: MAGNESIUM 2.3 mg/dl (1.7-2.5)
[2017-04-27 08:47] LABS: PHOSPHORUS 3.5 mg/dl (2.5-4.9)
[2017-04-27 08:50] LABS: ANION GAP 15 (8-16); BLOOD UREA NITROGEN 71 mg/dl (7-20); CALCIUM 9.1 mg/dl (8.4-10.2); CARBON DIOXIDE 28 mmol/L (21-31); CHLORIDE 98 mmol/L (97-110); CREATININE 7.13 mg/dl (0.61-1.24); GLUCOSE 117 mg/dl (70-220); POTASSIUM 4.5 mmol/L (3.5-5.1); SODIUM 136 mmol/L (135-144)
[2017-04-27] MEDS: SEVELAMER CARBONATE 0.8 GM PKT GTB ×3 (09:19→20:44)
[2017-04-27] MEDS: FAMOTIDINE 20 MG TAB NGT (09:19)
[2017-04-27] MEDS: GABAPENTIN (50 MG/ML PO SYG) PO ×3 (09:19→20:43)
[2017-04-27] MEDS: CALCIUM ACETATE 667 MG CAP PO ×3 (09:19→17:59)
[2017-04-27] MEDS: ASPIRIN 81 MG TAB GTB (09:20)
[2017-04-27] MEDS: ARTIFICIAL TEARS 15 ML OPH BOTH EYES ×4 (09:20→20:42)
[2017-04-27] MEDS: BALSAM PERU/CASTOR OIL 60 GM TUBE TOP ×2 (09:25→20:41)
[2017-04-27] MEDS: LOSARTAN 25 MG TAB GTB ×2 (09:28→20:43)
[2017-04-27] MEDS ORDERED: VANCOMYCIN IV PER PHARMACY XX (16:30)
[2017-04-27] MEDS ORDERED: AMIKACIN IV PER PHARMACY XX (17:30)
[2017-04-27] MEDS: VANCOMYCIN 2 GM in DEXTROSE 5% 500 ML IVPB (17:59)
[2017-04-27] MEDS: COLISTIMETHATE (25 MG/ML INHAL SYG) NEB (19:06)
[2017-04-27] MEDS: ACETAMINOPHEN 325 MG TAB PO (20:42)
[2017-04-27] MEDS: DOCUSATE SODIUM 10 MG/ML (10ML CUP) GTB (20:43)
[2017-04-27] MEDS: ATORVASTATIN 80 MG TAB PO (20:43)
[2017-04-27] MEDS: AMIKACIN 700 MG in DEXTROSE 5% 100 ML IVPB (20:44)
[2017-04-27] MEDS: INSULIN GLARGINE [LANtus] 3 ML PEN SC (21:04)
[2017-04-27 22:39] LABS: ANION GAP 17 (8-16); BLOOD UREA NITROGEN 85 mg/dl (7-20); CALCIUM 9.3 mg/dl (8.4-10.2); CARBON DIOXIDE 29 mmol/L (21-31); CHLORIDE 94 mmol/L (97-110); CREATININE 8.01 mg/dl (0.61-1.24); GLUCOSE 147 mg/dl (70-220); MAGNESIUM 2.3 mg/dl (1.7-2.5); PHOSPHORUS 2.9 mg/dl (2.5-4.9); POTASSIUM 4.6 mmol/L (3.5-5.1); SODIUM 135 mmol/L (135-144)
[2017-04-28] MEDS: INSULIN ASPART [NOVOLOG] 3 ML PEN SC ×5 (00:09→23:40)
[2017-04-28 06:27] LABS: ADD MAN DIFF? NO
[2017-04-28 06:29] LABS: WHITE BLOOD COUNT 6.4 10^3/ul (4.8-10.8)
[2017-04-28 06:29] LABS: BASOPHILS % 0.6 % (0.0-2.0); EOSINOPHILS # 0.3 10^3/ul (0.0-0.5); EOSINOPHILS % 3.9 % (0.0-7.0); HEMATOCRIT 24.2 % (42.0-52.0); HEMOGLOBIN 7.5 g/dl (14.0-18.0); LYMPHOCYTES # 1.2 10^3/ul (0.8-2.9); LYMPHOCYTES % 18.1 % (15.0-51.0); MEAN CORPUSCULAR HEMOGLOBIN 27.2 pg (29.0-33.0); MEAN CORPUSCULAR VOLUME 87.7 fl (82.0-101.0); MEAN PLATELET VOLUME 10.4 fl (7.4-10.4); MONOCYTE # 0.7 10^3/ul (0.3-0.9); MONOCYTES % 10.6 % (0.0-11.0); NEUTROPHIL # 4.2 10^3/ul (1.6-7.5); NEUTROPHILS % 66.6 % (39.0-77.0); PLATELET COUNT 286 10^3/UL (140-415); POSITIVE DIFF @See below; RED BLOOD COUNT 2.76 10^6/ul (4.70-6.10)
[2017-04-28 06:52] LABS: ANION GAP 14 (8-16); BLOOD UREA NITROGEN 95 mg/dl (7-20); CALCIUM 9.4 mg/dl (8.4-10.2); CARBON DIOXIDE 27 mmol/L (21-31); CHLORIDE 95 mmol/L (97-110); CREATININE 8.75 mg/dl (0.61-1.24); GLUCOSE 134 mg/dl (70-220); POTASSIUM 5.2 mmol/L (3.5-5.1); SODIUM 131 mmol/L (135-144)
[2017-04-28 06:58] LABS: MAGNESIUM 2.3 mg/dl (1.7-2.5)
[2017-04-28 06:58] LABS: PHOSPHORUS 3.1 mg/dl (2.5-4.9)
[2017-04-28] MEDS: CALCIUM ACETATE 667 MG CAP PO ×3 (09:06→18:26)
[2017-04-28] MEDS: SEVELAMER CARBONATE 0.8 GM PKT GTB ×3 (09:06→20:15)
[2017-04-28] MEDS: GABAPENTIN (50 MG/ML PO SYG) PO ×3 (09:07→20:15)
[2017-04-28] MEDS: LOSARTAN 25 MG TAB GTB ×2 (09:07→20:16)
[2017-04-28] MEDS: FAMOTIDINE 20 MG TAB NGT (09:07)
[2017-04-28] MEDS: ASPIRIN 81 MG TAB GTB (09:08)
[2017-04-28] MEDS: ACETAMINOPHEN 325 MG TAB PO ×2 (09:08→20:15)
[2017-04-28] MEDS: ARTIFICIAL TEARS 15 ML OPH BOTH EYES ×4 (09:08→20:17)
[2017-04-28] MEDS: BALSAM PERU/CASTOR OIL 60 GM TUBE TOP ×2 (09:10→20:18)
[2017-04-28] MEDS: COLISTIMETHATE (25 MG/ML INHAL SYG) NEB ×2 (10:14→20:40)
[2017-04-28] MEDS: HEPARIN 1000 UNITS/ML 10 ML INJ CATHETER (18:23)
[2017-04-28] MEDS: AMIKACIN 450 MG in DEXTROSE 5% 100 ML IVPB (18:26)
[2017-04-28] MEDS: LORAZEPAM 2 MG INJ IV (18:26)
[2017-04-28] MEDS: ATORVASTATIN 80 MG TAB PO (20:15)
[2017-04-28] MEDS: INSULIN GLARGINE [LANtus] 3 ML PEN SC (20:32)
[2017-04-29 03:00] LABS: ANION GAP 16 (8-16); BLOOD UREA NITROGEN 72 mg/dl (7-20); CALCIUM 9.7 mg/dl (8.4-10.2); CARBON DIOXIDE 27 mmol/L (21-31); CHLORIDE 96 mmol/L (97-110); CREATININE 6.48 mg/dl (0.61-1.24); GLUCOSE 133 mg/dl (70-220); MAGNESIUM 2.3 mg/dl (1.7-2.5); POTASSIUM 5.2 mmol/L (3.5-5.1); SODIUM 134 mmol/L (135-144)
[2017-04-29] MEDS: INSULIN ASPART [NOVOLOG] 3 ML PEN SC ×3 (05:07→18:01)
[2017-04-29 06:38] LABS: ABNORMAL IP MESSAGE 1; HEMATOCRIT 24.5 % (42.0-52.0); HEMOGLOBIN 7.7 g/dl (14.0-18.0); MEAN CORPUSCULAR HEMOGLOBIN 27.5 pg (29.0-33.0); MEAN CORPUSCULAR HGB CONC 31.4 g/dl (32.0-37.0); MEAN CORPUSCULAR VOLUME 87.5 fl (82.0-101.0); MEAN PLATELET VOLUME 10.6 fl (7.4-10.4); PLATELET COUNT 285 10^3/UL (140-415); POSITIVE DIFF @See below; RED CELL DISTRIBUTION WIDTH 15.1 % (11.5-14.5)
[2017-04-29 06:38] LABS: WHITE BLOOD COUNT 5.1 10^3/ul (4.8-10.8)
[2017-04-29 06:40] LABS: ANION GAP 16 (8-16); BLOOD UREA NITROGEN 73 mg/dl (7-20); CALCIUM 9.6 mg/dl (8.4-10.2); CARBON DIOXIDE 27 mmol/L (21-31); CHLORIDE 96 mmol/L (97-110); CREATININE 7.16 mg/dl (0.61-1.24); GLUCOSE 154 mg/dl (70-220); POTASSIUM 4.8 mmol/L (3.5-5.1); SODIUM 134 mmol/L (135-144)
[2017-04-29 06:41] LABS: ADD MAN DIFF? YES
[2017-04-29 06:44] LABS: LACTIC ACID 1.2 mmol/L (0.5-2.0)
[2017-04-29 06:49] LABS: VANCOMYCIN,RANDOM 17.3 ug/ml
[2017-04-29] MEDS: COLISTIMETHATE (25 MG/ML INHAL SYG) NEB ×2 (08:32→20:42)
[2017-04-29 08:35] LABS: MAGNESIUM 2.2 mg/dl (1.7-2.5)
[2017-04-29 08:35] LABS: PHOSPHORUS 2.7 mg/dl (2.5-4.9)
[2017-04-29] MEDS: FAMOTIDINE 20 MG TAB NGT (09:16)
[2017-04-29] MEDS: CALCIUM ACETATE 667 MG CAP PO ×3 (09:16→17:48)
[2017-04-29] MEDS: LOSARTAN 25 MG TAB GTB ×2 (09:17→20:30)
[2017-04-29] MEDS: SEVELAMER CARBONATE 0.8 GM PKT GTB ×3 (09:18→20:32)
[2017-04-29] MEDS: ARTIFICIAL TEARS 15 ML OPH BOTH EYES ×4 (09:18→20:31)
[2017-04-29] MEDS: BALSAM PERU/CASTOR OIL 60 GM TUBE TOP ×2 (09:18→20:32)
[2017-04-29] MEDS: ASPIRIN 81 MG TAB GTB (09:18)
[2017-04-29 09:21] LABS: ANISOCYTOSIS 1+ (0-0); BAND NEUTROPHILS #M 1.6 10^3/ul (0.0-0.6); BAND NEUTROPHILS % (M) 33 % (0-4); BASOPHIL #M 0.1 10^3/ul (0.0-0.0); BASOPHILS % (M) 2 % (0-2); GIANT THROMBO% (M) 4 % (0-0); LYMPHOCYTES % (M) 21 % (15-51); MICROCYTOSIS 1+ (0-0); MONOCYTE #M 0.6 10^3/ul (0.3-0.9); MONOCYTES % (M) 13 % (0-11); PLATELET ESTIMATE NORMAL; POIKILOCYTOSIS 1+ (0-0); POLYCHROMASIA 3+ (0-0); SEG NEUT #M 1.6 10^3/ul (1.6-7.5); SEGMENTED NEUTROPHILS (M) % 30 % (39-77); SMUDGE%M 1 % (0-0)
[2017-04-29] MEDS: GABAPENTIN (50 MG/ML PO SYG) PO ×3 (09:23→21:00)
[2017-04-29] MEDS: ACETAMINOPHEN 325 MG TAB PO ×2 (09:23→20:32)
[2017-04-29] MEDS: VANCOMYCIN 1 GM 250 ML IVPB (17:49)
[2017-04-29] MEDS: ATORVASTATIN 80 MG TAB PO (20:30)
[2017-04-29] MEDS: INSULIN GLARGINE [LANtus] 3 ML PEN SC (20:44)
[2017-04-30] MEDS: INSULIN ASPART [NOVOLOG] 3 ML PEN SC ×4 (06:00→18:00)
[2017-04-30 06:58] LABS: ABNORMAL IP MESSAGE 1; HEMATOCRIT 24.3 % (42.0-52.0); HEMOGLOBIN 7.4 g/dl (14.0-18.0); MEAN CORPUSCULAR HEMOGLOBIN 26.8 pg (29.0-33.0); MEAN CORPUSCULAR HGB CONC 30.5 g/dl (32.0-37.0); MEAN PLATELET VOLUME 10.7 fl (7.4-10.4); PLATELET COUNT 268 10^3/UL (140-415); POSITIVE DIFF @See below; RED BLOOD COUNT 2.76 10^6/ul (4.70-6.10); RED CELL DISTRIBUTION WIDTH 15.4 % (11.5-14.5)
[2017-04-30 06:58] LABS: WHITE BLOOD COUNT 6.8 10^3/ul (4.8-10.8)
[2017-04-30 07:09] LABS: ADD MAN DIFF? YES
[2017-04-30 07:31] LABS: ANION GAP 17 (8-16); BLOOD UREA NITROGEN 99 mg/dl (7-20); CALCIUM 9.7 mg/dl (8.4-10.2); CARBON DIOXIDE 27 mmol/L (21-31); CHLORIDE 93 mmol/L (97-110); CREATININE 8.98 mg/dl (0.61-1.24); GLUCOSE 118 mg/dl (70-220); POTASSIUM 5.2 mmol/L (3.5-5.1); SODIUM 132 mmol/L (135-144)
[2017-04-30 08:14] LABS: ANISOCYTOSIS 1+ (0-0); BAND NEUTROPHILS #M 2.6 10^3/ul (0.0-0.6); BAND NEUTROPHILS % (M) 39 % (0-4); BASOPHILS % (M) 1 % (0-2); EOSINOPHILS % (M) 7 % (0-7); GIANT THROMBO% (M) 1 % (0-0); LYMPHOCYTES #M 1.5 10^3/ul (0.8-2.9); LYMPHOCYTES % (M) 23 % (15-51); MICROCYTOSIS 1+ (0-0); MONOCYTE #M 1.2 10^3/ul (0.3-0.9); MONOCYTES % (M) 19 % (0-11); PLATELET ESTIMATE NORMAL; POLYCHROMASIA 3+ (0-0); REACTIVE LYMPHOCYTES% (M) 1 % (0-0); SEG NEUT #M 0.9 10^3/ul (1.6-7.5); SEGMENTED NEUTROPHILS (M) % 10 % (39-77); SMUDGE%M 4 % (0-0)
[2017-04-30] MEDS: COLISTIMETHATE (25 MG/ML INHAL SYG) NEB ×2 (08:35→20:19)
[2017-04-30] MEDS ORDERED: SOD CHLORIDE 0.9% 1,000 ML IV (09:34)
[2017-04-30] MEDS: CALCIUM ACETATE 667 MG CAP PO ×3 (09:47→18:34)
[2017-04-30] MEDS: SEVELAMER CARBONATE 0.8 GM PKT GTB ×3 (09:47→22:07)
[2017-04-30] MEDS: ASPIRIN 81 MG TAB GTB (09:48)
[2017-04-30] MEDS: ARTIFICIAL TEARS 15 ML OPH BOTH EYES ×4 (09:48→21:30)
[2017-04-30] MEDS: GABAPENTIN (50 MG/ML PO SYG) PO ×3 (09:48→21:30)
[2017-04-30] MEDS: FAMOTIDINE 20 MG TAB NGT (09:48)
[2017-04-30] MEDS: BALSAM PERU/CASTOR OIL 60 GM TUBE TOP ×2 (09:49→22:06)
[2017-04-30] MEDS: LOSARTAN 25 MG TAB GTB ×2 (09:54→22:07)
[2017-04-30] MEDS ORDERED: ALBUMIN HUMAN 25% 50 ML IV (10:00)
[2017-04-30] MEDS ORDERED: HEPARIN 1000 UNITS/ML 10 ML INJ CATHETER (10:00)
[2017-04-30] MEDS ORDERED: SODIUM CHLORIDE 0.9% 1L BAG IV (10:00)
[2017-04-30] MEDS: SOD CHLORIDE 0.9% 100 ML (15:17)
[2017-04-30] MEDS: IODIXANOL LOCM 100 ML BTL (15:17)
[2017-04-30] MEDS: INSULIN GLARGINE [LANtus] 3 ML PEN SC (21:51)
[2017-04-30] MEDS: ATORVASTATIN 80 MG TAB PO (22:06)
[2017-05-01] MEDS: morphine LIQ (10 MG/5 ML) CUP GTB (01:49)
[2017-05-01] MEDS: AMIKACIN 450 MG in DEXTROSE 5% 100 ML IVPB ×2 (05:00→23:58)
[2017-05-01] MEDS: INSULIN ASPART [NOVOLOG] 3 ML PEN SC ×5 (06:00→21:55)
[2017-05-01 07:16] LABS: ADD MAN DIFF? NO
[2017-05-01 07:24] LABS: BASOPHIL # 0.1 10^3/ul (0.0-0.1); BASOPHILS % 0.8 % (0.0-2.0); EOSINOPHILS # 0.3 10^3/ul (0.0-0.5); EOSINOPHILS % 5.1 % (0.0-7.0); HEMATOCRIT 23.1 % (42.0-52.0); HEMOGLOBIN 7.2 g/dl (14.0-18.0); LYMPHOCYTES # 1.1 10^3/ul (0.8-2.9); LYMPHOCYTES % 17.3 % (15.0-51.0); MEAN CORPUSCULAR HEMOGLOBIN 27.3 pg (29.0-33.0); MEAN CORPUSCULAR HGB CONC 31.2 g/dl (32.0-37.0); MEAN CORPUSCULAR VOLUME 87.5 fl (82.0-101.0); MEAN PLATELET VOLUME 10.6 fl (7.4-10.4); MONOCYTE # 0.8 10^3/ul (0.3-0.9); MONOCYTES % 13.2 % (0.0-11.0); NEUTROPHIL # 3.9 10^3/ul (1.6-7.5); NEUTROPHILS % 62.8 % (39.0-77.0); PLATELET COUNT 264 10^3/UL (140-415); POSITIVE DIFF @See below; RED BLOOD COUNT 2.64 10^6/ul (4.70-6.10); RED CELL DISTRIBUTION WIDTH 15.8 % (11.5-14.5)
[2017-05-01 07:24] LABS: WHITE BLOOD COUNT 6.2 10^3/ul (4.8-10.8)
[2017-05-01 07:48] LABS: ANION GAP 16 (8-16); BLOOD UREA NITROGEN 67 mg/dl (7-20); CALCIUM 9.4 mg/dl (8.4-10.2); CARBON DIOXIDE 29 mmol/L (21-31); CHLORIDE 96 mmol/L (97-110); CREATININE 6.92 mg/dl (0.61-1.24); GLUCOSE 120 mg/dl (70-220); POTASSIUM 4.3 mmol/L (3.5-5.1); SODIUM 137 mmol/L (135-144)
[2017-05-01] MEDS: COLISTIMETHATE (25 MG/ML INHAL SYG) NEB (08:29)
[2017-05-01] MEDS: LOSARTAN 25 MG TAB GTB ×2 (09:00→22:00)
[2017-05-01] MEDS: ARTIFICIAL TEARS 15 ML OPH BOTH EYES ×4 (09:00→22:02)
[2017-05-01] MEDS: SEVELAMER CARBONATE 0.8 GM PKT GTB ×3 (10:51→22:00)
[2017-05-01] MEDS: FAMOTIDINE 20 MG TAB NGT (10:52)
[2017-05-01] MEDS: ASPIRIN 81 MG TAB GTB (10:52)
[2017-05-01] MEDS: CALCIUM ACETATE 667 MG CAP PO ×3 (10:52→18:22)
[2017-05-01] MEDS: GABAPENTIN (50 MG/ML PO SYG) PO ×3 (10:57→22:01)
[2017-05-01] MEDS: BALSAM PERU/CASTOR OIL 60 GM TUBE TOP ×2 (10:58→22:02)
[2017-05-01] MEDS: ATORVASTATIN 80 MG TAB PO (22:01)
[2017-05-01] MEDS: INSULIN GLARGINE [LANtus] 3 ML PEN SC (22:16)
[2017-05-01] MEDS: ACETAMINOPHEN 325 MG TAB PO (22:30)
[2017-05-02] MEDS: INSULIN ASPART [NOVOLOG] 3 ML PEN SC ×3 (06:00→16:57)
[2017-05-02 06:34] LABS: HEMATOCRIT 22.7 % (42.0-52.0); MEAN CORPUSCULAR HEMOGLOBIN 27.1 pg (29.0-33.0); MEAN CORPUSCULAR HGB CONC 30.8 g/dl (32.0-37.0); PLATELET COUNT 283 10^3/UL (140-415); POSITIVE DIFF @See below; RED BLOOD COUNT 2.58 10^6/ul (4.70-6.10); RED CELL DISTRIBUTION WIDTH 15.7 % (11.5-14.5)
[2017-05-02 06:42] LABS: ADD MAN DIFF? YES
[2017-05-02 06:56] LABS: VANCOMYCIN,RANDOM 17.3 ug/ml
[2017-05-02 07:09] LABS: ANION GAP 15 (8-16); BLOOD UREA NITROGEN 92 mg/dl (7-20); CALCIUM 9.3 mg/dl (8.4-10.2); CARBON DIOXIDE 27 mmol/L (21-31); CHLORIDE 95 mmol/L (97-110); CREATININE 8.19 mg/dl (0.61-1.24); GLUCOSE 121 mg/dl (70-220); POTASSIUM 4.8 mmol/L (3.5-5.1); SODIUM 132 mmol/L (135-144)
[2017-05-02 08:27] LABS: ANISOCYTOSIS 2+ (0-0); BAND NEUTROPHILS #M 1.6 10^3/ul (0.0-0.6); BAND NEUTROPHILS % (M) 23 % (0-4); EOSINOPHILS % (M) 1 % (0-7); GIANT THROMBO% (M) 5 % (0-0); LYMPHOCYTES #M 1.9 10^3/ul (0.8-2.9); LYMPHOCYTES % (M) 28 % (15-51); METAMYELOCYTES #M 0.1 10^3/ul (0.0-0.0); METAMYELOCYTES %M 2 % (0-0); MICROCYTOSIS 2+ (0-0); MONOCYTE #M 0.6 10^3/ul (0.3-0.9); MONOCYTES % (M) 9 % (0-11); MYELOCYTES % (M) 1 % (0-0); PLATELET ESTIMATE NORMAL; POIKILOCYTOSIS 1+ (0-0); POLYCHROMASIA 3+ (0-0); REACTIVE LYMPHOCYTES #M 0.1 10^3/ul (0.0-0.0); REACTIVE LYMPHOCYTES% (M) 2 % (0-0); SEG NEUT #M 2.5 10^3/ul (1.6-7.5); SEGMENTED NEUTROPHILS (M) % 34 % (39-77); SMUDGE%M 10 % (0-0)
[2017-05-02] MEDS: SEVELAMER CARBONATE 0.8 GM PKT GTB ×3 (08:45→21:38)
[2017-05-02] MEDS: ASPIRIN 81 MG TAB GTB (08:45)
[2017-05-02] MEDS: CALCIUM ACETATE 667 MG CAP PO ×3 (08:45→17:15)
[2017-05-02] MEDS: LOSARTAN 25 MG TAB GTB ×2 (08:45→21:41)
[2017-05-02] MEDS: BALSAM PERU/CASTOR OIL 60 GM TUBE TOP ×2 (08:46→21:00)
[2017-05-02] MEDS: GABAPENTIN (50 MG/ML PO SYG) PO ×3 (08:46→21:39)
[2017-05-02] MEDS: ARTIFICIAL TEARS 15 ML OPH BOTH EYES ×4 (08:46→21:40)
[2017-05-02] MEDS: FAMOTIDINE 20 MG TAB NGT (08:46)
[2017-05-02] MEDS: ACETAMINOPHEN 325 MG TAB PO (08:46)
[2017-05-02] MEDS ORDERED: SOD CHLORIDE 0.9% 1,000 ML IV ×2 (10:13→20:20)
[2017-05-02] MEDS: ALBUMIN HUMAN 25% 50 ML IV ×2 (13:41→14:10)
[2017-05-02 14:32] LABS: HEPATITIS B SURFACE ANTIGEN NEGATIVE (NEGATIVE)
[2017-05-02 14:49] LABS: HEPATITIS B SURFACE ANTIBODY NEGATIVE (NEGATIVE)
[2017-05-02 15:09] LABS: IRON 37 ug/dl (35-150)
[2017-05-02 15:10] LABS: % IRON SATURATION 23 % SAT (22-52)
[2017-05-02 15:13] LABS: TOTAL IRON BINDING CAPACITY 164 ug/dl (241-421)
[2017-05-02] MEDS: ALTEPLASE (CATHFLO) 2 MG INJ CATHETER ×2 (16:40→16:41)
[2017-05-02 17:20] LABS: IMMEDIATE SPIN CROSSMATCH 1 1
[2017-05-02] MEDS ORDERED: ALBUMIN HUMAN 25% 50 ML IV (20:30)
[2017-05-02] MEDS ORDERED: SODIUM CHLORIDE 0.9% 1L BAG IV (20:30)
[2017-05-02] MEDS ORDERED: HEPARIN 1000 UNITS/ML 10 ML INJ CATHETER (20:30)
[2017-05-02] MEDS: PIPER-TAZO 2.25 GM (PMX) 50 ML IVPB (21:38)
[2017-05-02] MEDS: ATORVASTATIN 80 MG TAB PO (21:39)
[2017-05-03] MEDS: INSULIN GLARGINE [LANtus] 3 ML PEN SC ×2 (00:02→21:17)
[2017-05-03] MEDS: DOCUSATE SODIUM 10 MG/ML (10ML CUP) GTB ×2 (02:28→08:32)
[2017-05-03] MEDS: PIPER-TAZO 2.25 GM (PMX) 50 ML IVPB ×3 (06:00→22:49)
[2017-05-03] MEDS: INSULIN ASPART [NOVOLOG] 3 ML PEN SC ×4 (06:00→17:06)
[2017-05-03] MEDS: HEPARIN 1000 UNITS/ML 10 ML INJ CATHETER (08:24)
[2017-05-03] MEDS: ASPIRIN 81 MG TAB GTB (08:32)
[2017-05-03] MEDS: SEVELAMER CARBONATE 0.8 GM PKT GTB ×3 (08:32→21:00)
[2017-05-03] MEDS: FAMOTIDINE 20 MG TAB NGT (08:32)
[2017-05-03] MEDS: CALCIUM ACETATE 667 MG CAP PO ×3 (08:32→17:47)
[2017-05-03] MEDS: POLYETHYLENE GLYCOL 17 GM PACKET GTB (08:33)
[2017-05-03] MEDS: LOSARTAN 25 MG TAB GTB ×2 (08:33→21:00)
[2017-05-03] MEDS: BALSAM PERU/CASTOR OIL 60 GM TUBE TOP ×2 (08:33→21:02)
[2017-05-03] MEDS: GABAPENTIN (50 MG/ML PO SYG) PO ×3 (08:33→21:01)
[2017-05-03] MEDS: ARTIFICIAL TEARS 15 ML OPH BOTH EYES ×4 (08:34→21:00)
[2017-05-03 14:14] LABS: ADD MAN DIFF? NO
[2017-05-03 14:17] LABS: WHITE BLOOD COUNT 6.2 10^3/ul (4.8-10.8)
[2017-05-03 14:17] LABS: BASOPHILS % 0.5 % (0.0-2.0); EOSINOPHILS # 0.3 10^3/ul (0.0-0.5); HEMATOCRIT 23.6 % (42.0-52.0); HEMOGLOBIN 7.5 g/dl (14.0-18.0); LYMPHOCYTES # 1.1 10^3/ul (0.8-2.9); LYMPHOCYTES % 16.9 % (15.0-51.0); MEAN CORPUSCULAR HEMOGLOBIN 27.6 pg (29.0-33.0); MEAN CORPUSCULAR HGB CONC 31.8 g/dl (32.0-37.0); MEAN CORPUSCULAR VOLUME 86.8 fl (82.0-101.0); MEAN PLATELET VOLUME 10.4 fl (7.4-10.4); MONOCYTE # 0.7 10^3/ul (0.3-0.9); MONOCYTES % 11.6 % (0.0-11.0); NEUTROPHILS % 63.9 % (39.0-77.0); PLATELET COUNT 272 10^3/UL (140-415); POSITIVE DIFF @See below; RED BLOOD COUNT 2.72 10^6/ul (4.70-6.10); RED CELL DISTRIBUTION WIDTH 15.4 % (11.5-14.5)
[2017-05-03 14:40] LABS: ANION GAP 13 (8-16); BLOOD UREA NITROGEN 43 mg/dl (7-20); CALCIUM 9.5 mg/dl (8.4-10.2); CARBON DIOXIDE 30 mmol/L (21-31); CHLORIDE 99 mmol/L (97-110); CREATININE 4.58 mg/dl (0.61-1.24); GLUCOSE 143 mg/dl (70-220); POTASSIUM 4.2 mmol/L (3.5-5.1); SODIUM 138 mmol/L (135-144)
[2017-05-03] MEDS: LANSOPRAZOLE 30 MG CAP NGT ×2 (16:30→17:47)
[2017-05-03] MEDS: LACTOBACILLUS RHAMNOSUS CAP GTB (21:00)
[2017-05-03] MEDS: DOCUSATE SODIUM 100 MG CAP PO (21:00)
[2017-05-03] MEDS: ATORVASTATIN 80 MG TAB PO (21:01)
[2017-05-04] MEDS: PIPER-TAZO 2.25 GM (PMX) 50 ML IVPB ×3 (06:10→20:44)
[2017-05-04] MEDS: LANSOPRAZOLE 30 MG CAP NGT ×2 (06:10→18:00)
[2017-05-04] MEDS: INSULIN ASPART [NOVOLOG] 3 ML PEN SC ×4 (06:22→18:00)
[2017-05-04 07:11] LABS: ADD MAN DIFF? NO
[2017-05-04 07:16] LABS: WHITE BLOOD COUNT 7.4 10^3/ul (4.8-10.8)
[2017-05-04 07:16] LABS: BASOPHILS % 0.5 % (0.0-2.0); EOSINOPHILS # 0.4 10^3/ul (0.0-0.5); EOSINOPHILS % 5.5 % (0.0-7.0); HEMATOCRIT 22.4 % (42.0-52.0); HEMOGLOBIN 7.1 g/dl (14.0-18.0); LYMPHOCYTES # 1.5 10^3/ul (0.8-2.9); LYMPHOCYTES % 19.9 % (15.0-51.0); MEAN CORPUSCULAR HEMOGLOBIN 27.6 pg (29.0-33.0); MEAN CORPUSCULAR HGB CONC 31.7 g/dl (32.0-37.0); MEAN CORPUSCULAR VOLUME 87.2 fl (82.0-101.0); MEAN PLATELET VOLUME 10.6 fl (7.4-10.4); MONOCYTE # 0.9 10^3/ul (0.3-0.9); MONOCYTES % 11.6 % (0.0-11.0); NEUTROPHIL # 4.4 10^3/ul (1.6-7.5); PLATELET COUNT 271 10^3/UL (140-415); POSITIVE DIFF @See below; RED BLOOD COUNT 2.57 10^6/ul (4.70-6.10); RED CELL DISTRIBUTION WIDTH 15.4 % (11.5-14.5)
[2017-05-04 07:54] LABS: IRON 50 ug/dl (35-150)
[2017-05-04 07:58] LABS: ALANINE AMINOTRANSFERASE 32 IU/L (13-69); ALBUMIN 3.1 g/dl (3.3-4.9); ALBUMIN/GLOBULIN RATIO 0.86; ALKALINE PHOSPHATASE 160 IU/L (42-121); ANION GAP 16 (8-16); ASPARTATE AMINO TRANSFERASE 20 IU/L (15-46); BLOOD UREA NITROGEN 60 mg/dl (7-20); CALCIUM 9.6 mg/dl (8.4-10.2); CARBON DIOXIDE 28 mmol/L (21-31); CHLORIDE 99 mmol/L (97-110); CREATININE 6.02 mg/dl (0.61-1.24); GLUCOSE 153 mg/dl (70-220); POTASSIUM 4.5 mmol/L (3.5-5.1); SODIUM 138 mmol/L (135-144); TOTAL PROTEIN 6.7 g/dl (6.1-8.1)
[2017-05-04 07:59] LABS: CHOL/HDL RATIO 3.9 RATIO; HDL CHOLESTEROL 16 mg/dl (28-71); LDL CHOLESTEROL,CALCULATED 18 mg/dl; TRIGLYCERIDES 143 mg/dl (0-149)
[2017-05-04 07:59] LABS: CHOLESTEROL 63 mg/dl (100-200)
[2017-05-04 08:03] LABS: % IRON SATURATION 24 % SAT (22-52); TOTAL IRON BINDING CAPACITY 207 ug/dl (241-421)
[2017-05-04] MEDS: ALBUTEROL/IPRATROPIUM (NEB) 3 ML AMP HHN ×4 (08:53→23:00)
[2017-05-04] MEDS: GABAPENTIN (50 MG/ML PO SYG) PO ×3 (09:38→20:38)
[2017-05-04] MEDS: CALCIUM ACETATE 667 MG CAP PO ×3 (09:39→17:55)
[2017-05-04] MEDS: LOSARTAN 25 MG TAB GTB ×2 (09:40→20:36)
[2017-05-04] MEDS: LACTOBACILLUS RHAMNOSUS CAP GTB ×2 (09:40→20:35)
[2017-05-04] MEDS: ARTIFICIAL TEARS 15 ML OPH BOTH EYES ×4 (09:42→20:38)
[2017-05-04] MEDS: BALSAM PERU/CASTOR OIL 60 GM TUBE TOP ×2 (09:43→20:43)
[2017-05-04] MEDS: POLYETHYLENE GLYCOL 17 GM PACKET GTB (09:43)
[2017-05-04] MEDS: SEVELAMER CARBONATE 0.8 GM PKT GTB ×3 (09:43→20:35)
[2017-05-04] MEDS: ASPIRIN 81 MG TAB GTB (09:43)
[2017-05-04] MEDS: DOCUSATE SODIUM 10 MG/ML (10ML CUP) GTB (09:44)
[2017-05-04] MEDS: ATORVASTATIN 80 MG TAB PO (20:36)
[2017-05-04] MEDS: DOCUSATE SODIUM 100 MG CAP PO (20:37)
[2017-05-04] MEDS: INSULIN GLARGINE [LANtus] 3 ML PEN SC (20:40)
[2017-05-05] MEDS: INSULIN ASPART [NOVOLOG] 3 ML PEN SC ×5 (00:26→23:23)
[2017-05-05] MEDS ORDERED: VITAMIN A & D 5 GM OINT PACKET TOP (04:33)
[2017-05-05] MEDS: LANSOPRAZOLE 30 MG CAP NGT ×2 (05:30→17:35)
[2017-05-05] MEDS: PIPER-TAZO 2.25 GM (PMX) 50 ML IVPB ×3 (05:30→20:58)
[2017-05-05] MEDS: morphine LIQ (10 MG/5 ML) CUP GTB (06:49)
[2017-05-05] MEDS: ALBUTEROL/IPRATROPIUM (NEB) 3 ML AMP HHN ×3 (08:01→23:34)
[2017-05-05] MEDS: ARTIFICIAL TEARS 15 ML OPH BOTH EYES ×4 (09:00→21:01)
[2017-05-05] MEDS: ASPIRIN 81 MG TAB GTB (09:17)
[2017-05-05] MEDS: SEVELAMER CARBONATE 0.8 GM PKT GTB ×3 (09:18→20:59)
[2017-05-05] MEDS: CALCIUM ACETATE 667 MG CAP PO ×3 (09:18→17:35)
[2017-05-05] MEDS: GABAPENTIN (50 MG/ML PO SYG) PO ×3 (09:18→23:21)
[2017-05-05] MEDS: LOSARTAN 25 MG TAB GTB ×2 (09:18→21:00)
[2017-05-05] MEDS: LACTOBACILLUS RHAMNOSUS CAP GTB ×2 (09:19→20:59)
[2017-05-05] MEDS: hydrALAzine 20 MG INJ IV (09:19)
[2017-05-05] MEDS: BALSAM PERU/CASTOR OIL 60 GM TUBE TOP ×2 (09:20→20:58)
[2017-05-05] MEDS ORDERED: SOD CHLORIDE 0.9% 1,000 ML IV (18:17)
[2017-05-05] MEDS ORDERED: ALBUMIN HUMAN 25% 50 ML IV (18:30)
[2017-05-05] MEDS ORDERED: SODIUM CHLORIDE 0.9% 1L BAG IV (18:30)
[2017-05-05] MEDS ORDERED: HEPARIN 1000 UNITS/ML 10 ML INJ CATHETER (18:30)
[2017-05-05] MEDS: DOCUSATE SODIUM 10 MG/ML (10ML CUP) GTB (21:00)
[2017-05-05] MEDS: ATORVASTATIN 80 MG TAB PO (21:00)
[2017-05-05] MEDS: DOCUSATE SODIUM 100 MG CAP PO (21:00)
[2017-05-05] MEDS: INSULIN GLARGINE [LANtus] 3 ML PEN SC (21:03)
[2017-05-05] MEDS: DIPHENHYDRAMINE 2.5 MG/ML 5ML CUP GTB (21:16)
[2017-05-06] MEDS: INSULIN ASPART [NOVOLOG] 3 ML PEN SC ×3 (05:29→17:30)
[2017-05-06] MEDS: PIPER-TAZO 2.25 GM (PMX) 50 ML IVPB ×3 (05:29→21:32)
[2017-05-06] MEDS: LANSOPRAZOLE 30 MG CAP NGT ×2 (05:31→17:28)
[2017-05-06 07:00] LABS: ADD MAN DIFF? NO
[2017-05-06 07:07] LABS: ABNORMAL IP MESSAGE 1; BASOPHIL # 0.1 10^3/ul (0.0-0.1); BASOPHILS % 0.7 % (0.0-2.0); EOSINOPHILS # 0.5 10^3/ul (0.0-0.5); EOSINOPHILS % 5.2 % (0.0-7.0); HEMATOCRIT 24.3 % (42.0-52.0); HEMOGLOBIN 7.9 g/dl (14.0-18.0); LYMPHOCYTES # 1.7 10^3/ul (0.8-2.9); LYMPHOCYTES % 17.2 % (15.0-51.0); MEAN CORPUSCULAR HEMOGLOBIN 27.9 pg (29.0-33.0); MEAN CORPUSCULAR HGB CONC 32.5 g/dl (32.0-37.0); MEAN CORPUSCULAR VOLUME 85.9 fl (82.0-101.0); MEAN PLATELET VOLUME 10.1 fl (7.4-10.4); MONOCYTE # 0.8 10^3/ul (0.3-0.9); NEUTROPHIL # 6.3 10^3/ul (1.6-7.5); NEUTROPHILS % 63.8 % (39.0-77.0); PLATELET COUNT 329 10^3/UL (140-415); POSITIVE DIFF @See below; RED BLOOD COUNT 2.83 10^6/ul (4.70-6.10); RED CELL DISTRIBUTION WIDTH 15.4 % (11.5-14.5)
[2017-05-06 07:07] LABS: WHITE BLOOD COUNT 9.9 10^3/ul (4.8-10.8)
[2017-05-06 07:26] LABS: ANION GAP 16 (8-16); BLOOD UREA NITROGEN 93 mg/dl (7-20); CARBON DIOXIDE 28 mmol/L (21-31); CHLORIDE 96 mmol/L (97-110); GLUCOSE 148 mg/dl (70-220); POTASSIUM 4.8 mmol/L (3.5-5.1); SODIUM 135 mmol/L (135-144)
[2017-05-06 07:27] LABS: PHOSPHORUS 1.4 mg/dl (2.5-4.9)
[2017-05-06 07:27] LABS: MAGNESIUM 2.5 mg/dl (1.7-2.5)
[2017-05-06] MEDS: ALBUTEROL/IPRATROPIUM (NEB) 3 ML AMP HHN ×3 (08:01→23:42)
[2017-05-06] MEDS: LOSARTAN 25 MG TAB GTB ×2 (09:00→21:32)
[2017-05-06] MEDS: ARTIFICIAL TEARS 15 ML OPH BOTH EYES ×4 (09:11→21:30)
[2017-05-06] MEDS: BALSAM PERU/CASTOR OIL 60 GM TUBE TOP ×2 (09:11→21:31)
[2017-05-06] MEDS: SEVELAMER CARBONATE 0.8 GM PKT GTB ×3 (09:11→21:31)
[2017-05-06] MEDS: LACTOBACILLUS RHAMNOSUS CAP GTB ×2 (09:11→21:31)
[2017-05-06] MEDS: CALCIUM ACETATE 667 MG CAP PO ×3 (09:11→17:28)
[2017-05-06] MEDS: GABAPENTIN (50 MG/ML PO SYG) PO ×3 (09:11→21:31)
[2017-05-06] MEDS: SODIUM CHLORIDE 0.9% 1L BAG IV (10:23)
[2017-05-06] MEDS: HEPARIN 1000 UNITS/ML 10 ML INJ CATHETER (12:16)
[2017-05-06] MEDS: POLYETHYLENE GLYCOL 17 GM PACKET GTB (12:17)
[2017-05-06] MEDS: NEUTRA-PHOS 250 MG PACKET PO ×3 (13:00→21:33)
[2017-05-06] MEDS: WARFARIN 2 MG TAB GTB (17:28)
[2017-05-06] MEDS: EPOETIN 10000 UNITS/1 ML INJ (ESRD) SC (17:35)
[2017-05-06] MEDS: DOCUSATE SODIUM 100 MG CAP PO (21:32)
[2017-05-06] MEDS: ATORVASTATIN 80 MG TAB PO (21:32)
[2017-05-06] MEDS: INSULIN GLARGINE [LANtus] 3 ML PEN SC (21:56)
[2017-05-07] MEDS: INSULIN ASPART [NOVOLOG] 3 ML PEN SC ×4 (00:31→17:22)
[2017-05-07] MEDS: PIPER-TAZO 2.25 GM (PMX) 50 ML IVPB ×3 (06:37→21:25)
[2017-05-07] MEDS: LANSOPRAZOLE 30 MG CAP NGT ×2 (06:37→17:21)
[2017-05-07 06:41] LABS: ADD MAN DIFF? NO
[2017-05-07 06:48] LABS: WHITE BLOOD COUNT 10.3 10^3/ul (4.8-10.8)
[2017-05-07 06:48] LABS: ABNORMAL IP MESSAGE 1; BASOPHIL # 0.1 10^3/ul (0.0-0.1); BASOPHILS % 0.5 % (0.0-2.0); EOSINOPHILS # 0.5 10^3/ul (0.0-0.5); EOSINOPHILS % 4.4 % (0.0-7.0); HEMATOCRIT 23.6 % (42.0-52.0); HEMOGLOBIN 7.7 g/dl (14.0-18.0); LYMPHOCYTES # 1.7 10^3/ul (0.8-2.9); LYMPHOCYTES % 16.5 % (15.0-51.0); MEAN CORPUSCULAR HEMOGLOBIN 27.8 pg (29.0-33.0); MEAN CORPUSCULAR HGB CONC 32.6 g/dl (32.0-37.0); MEAN CORPUSCULAR VOLUME 85.2 fl (82.0-101.0); MEAN PLATELET VOLUME 10.2 fl (7.4-10.4); MONOCYTE # 0.8 10^3/ul (0.3-0.9); MONOCYTES % 7.5 % (0.0-11.0); NEUTROPHIL # 6.6 10^3/ul (1.6-7.5); NEUTROPHILS % 64.5 % (39.0-77.0); PLATELET COUNT 354 10^3/UL (140-415); POSITIVE DIFF @See below; RED BLOOD COUNT 2.77 10^6/ul (4.70-6.10); RED CELL DISTRIBUTION WIDTH 15.3 % (11.5-14.5)
[2017-05-07 07:07] LABS: PHOSPHORUS 1.5 mg/dl (2.5-4.9)
[2017-05-07 07:07] LABS: MAGNESIUM 2.3 mg/dl (1.7-2.5)
[2017-05-07 07:16] LABS: ANION GAP 14 (8-16); BLOOD UREA NITROGEN 53 mg/dl (7-20); CARBON DIOXIDE 31 mmol/L (21-31); CHLORIDE 100 mmol/L (97-110); CREATININE 6.08 mg/dl (0.61-1.24); GLUCOSE 148 mg/dl (70-220); POTASSIUM 4.4 mmol/L (3.5-5.1); SODIUM 141 mmol/L (135-144)
[2017-05-07 07:33] LABS: INR 1.07; PT RATIO 1.1
[2017-05-07] MEDS: ALBUTEROL/IPRATROPIUM (NEB) 3 ML AMP HHN ×3 (08:14→23:51)
[2017-05-07] MEDS: ARTIFICIAL TEARS 15 ML OPH BOTH EYES ×4 (09:00→21:23)
[2017-05-07] MEDS: CALCIUM ACETATE 667 MG CAP PO ×3 (09:11→17:21)
[2017-05-07] MEDS: GABAPENTIN (50 MG/ML PO SYG) PO ×3 (09:11→21:24)
[2017-05-07] MEDS: SEVELAMER CARBONATE 0.8 GM PKT GTB ×3 (09:11→21:24)
[2017-05-07] MEDS: LACTOBACILLUS RHAMNOSUS CAP GTB ×2 (09:11→21:24)
[2017-05-07] MEDS: LOSARTAN 25 MG TAB GTB ×2 (09:12→21:25)
[2017-05-07] MEDS: BALSAM PERU/CASTOR OIL 60 GM TUBE TOP ×2 (09:12→21:25)
[2017-05-07] MEDS ORDERED: SODIUM CHLORIDE 0.9% 1L BAG IV (17:00)
[2017-05-07] MEDS ORDERED: ALBUMIN HUMAN 25% 50 ML IV (17:00)
[2017-05-07] MEDS: WARFARIN 2 MG TAB GTB (17:21)
[2017-05-07] MEDS: NEUTRA-PHOS 250 MG PACKET NGT ×2 (17:21→21:24)
[2017-05-07] MEDS: DOCUSATE SODIUM 10 MG/ML (10ML CUP) GTB (17:21)
[2017-05-07] MEDS: POLYETHYLENE GLYCOL 17 GM PACKET GTB (17:21)
[2017-05-07] MEDS: DOCUSATE SODIUM 100 MG CAP PO (21:00)
[2017-05-07] MEDS: ATORVASTATIN 80 MG TAB PO (21:24)
[2017-05-07] MEDS: INSULIN GLARGINE [LANtus] 3 ML PEN SC (21:50)
[2017-05-08] MEDS: ACETAMINOPHEN 325 MG TAB PO (04:28)
[2017-05-08] MEDS: LANSOPRAZOLE 30 MG CAP NGT ×2 (06:09→17:19)
[2017-05-08] MEDS: PIPER-TAZO 2.25 GM (PMX) 50 ML IVPB ×2 (06:10→13:49)
[2017-05-08] MEDS: INSULIN ASPART [NOVOLOG] 3 ML PEN SC ×4 (06:22→17:43)
[2017-05-08 07:08] LABS: ADD MAN DIFF? NO
[2017-05-08 07:11] LABS: WHITE BLOOD COUNT 10.7 10^3/ul (4.8-10.8)
[2017-05-08 07:11] LABS: ABNORMAL IP MESSAGE 1; BASOPHILS % 0.4 % (0.0-2.0); EOSINOPHILS # 0.6 10^3/ul (0.0-0.5); EOSINOPHILS % 5.1 % (0.0-7.0); HEMATOCRIT 22.3 % (42.0-52.0); HEMOGLOBIN 7.2 g/dl (14.0-18.0); LYMPHOCYTES # 1.7 10^3/ul (0.8-2.9); LYMPHOCYTES % 16.3 % (15.0-51.0); MEAN CORPUSCULAR HEMOGLOBIN 27.7 pg (29.0-33.0); MEAN CORPUSCULAR HGB CONC 32.3 g/dl (32.0-37.0); MEAN CORPUSCULAR VOLUME 85.8 fl (82.0-101.0); MEAN PLATELET VOLUME 10.2 fl (7.4-10.4); MONOCYTE # 0.7 10^3/ul (0.3-0.9); MONOCYTES % 6.6 % (0.0-11.0); NEUTROPHIL # 7.1 10^3/ul (1.6-7.5); NEUTROPHILS % 66.5 % (39.0-77.0); PLATELET COUNT 349 10^3/UL (140-415); POSITIVE DIFF @See below; RED CELL DISTRIBUTION WIDTH 15.9 % (11.5-14.5)
[2017-05-08 07:29] LABS: PROTIME 13.3 Sec (11.9-14.9)
[2017-05-08 07:36] LABS: ANION GAP 15 (8-16); BLOOD UREA NITROGEN 68 mg/dl (7-20); CALCIUM 8.9 mg/dl (8.4-10.2); CARBON DIOXIDE 30 mmol/L (21-31); CHLORIDE 98 mmol/L (97-110); CREATININE 7.29 mg/dl (0.61-1.24); GLUCOSE 139 mg/dl (70-220); POTASSIUM 4.9 mmol/L (3.5-5.1); SODIUM 138 mmol/L (135-144)
[2017-05-08 07:37] LABS: MAGNESIUM 2.3 mg/dl (1.7-2.5)
[2017-05-08 07:37] LABS: PHOSPHORUS 1.9 mg/dl (2.5-4.9)
[2017-05-08] MEDS: ALBUTEROL/IPRATROPIUM (NEB) 3 ML AMP HHN ×3 (08:03→21:17)
[2017-05-08] MEDS: LOSARTAN 25 MG TAB GTB ×2 (09:00→22:12)
[2017-05-08] MEDS: LACTOBACILLUS RHAMNOSUS CAP GTB ×2 (09:42→22:05)
[2017-05-08] MEDS: CALCIUM ACETATE 667 MG CAP PO ×3 (09:42→17:19)
[2017-05-08] MEDS: ARTIFICIAL TEARS 15 ML OPH BOTH EYES ×4 (09:43→21:00)
[2017-05-08] MEDS: BALSAM PERU/CASTOR OIL 60 GM TUBE TOP ×2 (09:43→22:11)
[2017-05-08] MEDS: NEUTRA-PHOS 250 MG PACKET NGT (09:43)
[2017-05-08] MEDS: SEVELAMER CARBONATE 0.8 GM PKT GTB ×3 (09:43→22:05)
[2017-05-08] MEDS: GABAPENTIN (50 MG/ML PO SYG) PO ×3 (09:50→22:10)
[2017-05-08] MEDS: HEPARIN 1000 UNITS/ML 10 ML INJ CATHETER (15:37)
[2017-05-08] MEDS: EPOETIN 10000 UNITS/1 ML INJ (ESRD) SC (17:20)
[2017-05-08] MEDS: ATORVASTATIN 80 MG TAB PO (22:10)
[2017-05-08] MEDS: DOCUSATE SODIUM 100 MG CAP PO (22:11)
[2017-05-08] MEDS: INSULIN GLARGINE [LANtus] 3 ML PEN SC (22:26)
[2017-05-09] MEDS: ALBUTEROL/IPRATROPIUM (NEB) 3 ML AMP HHN ×3 (00:38→16:16)
[2017-05-09] MEDS: INSULIN ASPART [NOVOLOG] 3 ML PEN SC ×4 (05:04→17:53)
[2017-05-09] MEDS: LANSOPRAZOLE 30 MG CAP NGT ×2 (05:35→17:54)
[2017-05-09 06:35] LABS: ADD MAN DIFF? NO
[2017-05-09 06:40] LABS: ABNORMAL IP MESSAGE 1; BASOPHIL # 0.1 10^3/ul (0.0-0.1); BASOPHILS % 0.5 % (0.0-2.0); EOSINOPHILS # 0.5 10^3/ul (0.0-0.5); EOSINOPHILS % 4.5 % (0.0-7.0); HEMATOCRIT 23.7 % (42.0-52.0); HEMOGLOBIN 7.7 g/dl (14.0-18.0); LYMPHOCYTES # 1.7 10^3/ul (0.8-2.9); LYMPHOCYTES % 15.1 % (15.0-51.0); MEAN CORPUSCULAR HEMOGLOBIN 28.6 pg (29.0-33.0); MEAN CORPUSCULAR HGB CONC 32.5 g/dl (32.0-37.0); MEAN CORPUSCULAR VOLUME 88.1 fl (82.0-101.0); MEAN PLATELET VOLUME 9.7 fl (7.4-10.4); MONOCYTE # 0.8 10^3/ul (0.3-0.9); MONOCYTES % 6.7 % (0.0-11.0); NEUTROPHIL # 7.7 10^3/ul (1.6-7.5); NEUTROPHILS % 67.3 % (39.0-77.0); NUCLEATED RED BLOOD CELLS% 0.2 /100WBC (0.0-0.0); PLATELET COUNT 367 10^3/UL (140-415); POSITIVE DIFF @See below; RED BLOOD COUNT 2.69 10^6/ul (4.70-6.10)
[2017-05-09 06:40] LABS: WHITE BLOOD COUNT 11.4 10^3/ul (4.8-10.8)
[2017-05-09 07:07] LABS: INR 1.04; PROTIME 13.7 Sec (11.9-14.9); PT RATIO 1.1
[2017-05-09 07:08] LABS: MAGNESIUM 2.2 mg/dl (1.7-2.5)
[2017-05-09 07:08] LABS: PHOSPHORUS 1.9 mg/dl (2.5-4.9)
[2017-05-09 07:12] LABS: ANION GAP 12 (8-16); BLOOD UREA NITROGEN 38 mg/dl (7-20); CALCIUM 9.2 mg/dl (8.4-10.2); CARBON DIOXIDE 30 mmol/L (21-31); CHLORIDE 99 mmol/L (97-110); CREATININE 4.97 mg/dl (0.61-1.24); GLUCOSE 137 mg/dl (70-220); POTASSIUM 4.3 mmol/L (3.5-5.1); SODIUM 137 mmol/L (135-144)
[2017-05-09] MEDS: GABAPENTIN (50 MG/ML PO SYG) PO ×3 (09:24→21:50)
[2017-05-09] MEDS: CALCIUM ACETATE 667 MG CAP PO ×3 (09:24→17:54)
[2017-05-09] MEDS: SEVELAMER CARBONATE 0.8 GM PKT GTB ×3 (09:24→21:50)
[2017-05-09] MEDS: LACTOBACILLUS RHAMNOSUS CAP GTB ×2 (09:25→21:52)
[2017-05-09] MEDS: LOSARTAN 25 MG TAB GTB ×2 (09:25→21:51)
[2017-05-09] MEDS: ARTIFICIAL TEARS 15 ML OPH BOTH EYES ×4 (09:26→21:49)
[2017-05-09] MEDS: BALSAM PERU/CASTOR OIL 60 GM TUBE TOP ×2 (09:26→21:00)
[2017-05-09] MEDS ORDERED: SOD CHLORIDE 0.9% 1,000 ML IV (16:55)
[2017-05-09] MEDS ORDERED: ALBUMIN HUMAN 25% 50 ML IV (17:00)
[2017-05-09] MEDS ORDERED: SODIUM CHLORIDE 0.9% 1L BAG IV (17:00)
[2017-05-09] MEDS ORDERED: HEPARIN 1000 UNITS/ML 10 ML INJ CATHETER (17:00)
[2017-05-09] MEDS: WARFARIN 2 MG TAB GTB (17:54)
[2017-05-09] MEDS: NEUTRA-PHOS 250 MG PACKET NGT (21:50)
[2017-05-09] MEDS: DOCUSATE SODIUM 100 MG CAP PO (21:51)
[2017-05-09] MEDS: ATORVASTATIN 80 MG TAB PO (21:52)
[2017-05-09] MEDS: INSULIN GLARGINE [LANtus] 3 ML PEN SC (22:05)
[2017-05-10] MEDS: INSULIN ASPART [NOVOLOG] 3 ML PEN SC ×4 (00:21→18:00)
[2017-05-10] MEDS: ALBUTEROL/IPRATROPIUM (NEB) 3 ML AMP HHN ×3 (01:22→16:17)
[2017-05-10] MEDS: LANSOPRAZOLE 30 MG CAP NGT ×2 (05:52→18:16)
[2017-05-10 08:15] LABS: ADD MAN DIFF? NO
[2017-05-10 08:25] LABS: BASOPHIL # 0.1 10^3/ul (0.0-0.1); BASOPHILS % 0.8 % (0.0-2.0); EOSINOPHILS # 0.4 10^3/ul (0.0-0.5); EOSINOPHILS % 3.7 % (0.0-7.0); HEMATOCRIT 24.3 % (42.0-52.0); HEMOGLOBIN 7.8 g/dl (14.0-18.0); LYMPHOCYTES # 1.9 10^3/ul (0.8-2.9); LYMPHOCYTES % 17.2 % (15.0-51.0); MEAN CORPUSCULAR HEMOGLOBIN 28.2 pg (29.0-33.0); MEAN CORPUSCULAR HGB CONC 32.1 g/dl (32.0-37.0); MEAN CORPUSCULAR VOLUME 87.7 fl (82.0-101.0); MEAN PLATELET VOLUME 9.8 fl (7.4-10.4); MONOCYTE # 0.7 10^3/ul (0.3-0.9); MONOCYTES % 5.9 % (0.0-11.0); NEUTROPHIL # 7.5 10^3/ul (1.6-7.5); NEUTROPHILS % 68.4 % (39.0-77.0); PLATELET COUNT 373 10^3/UL (140-415); RED BLOOD COUNT 2.77 10^6/ul (4.70-6.10); RED CELL DISTRIBUTION WIDTH 16.2 % (11.5-14.5)
[2017-05-10 08:41] LABS: PHOSPHORUS 2.8 mg/dl (2.5-4.9)
[2017-05-10 08:41] LABS: INR 0.96; MAGNESIUM 2.4 mg/dl (1.7-2.5); PROTIME 12.9 Sec (11.9-14.9)
[2017-05-10 08:45] LABS: ANION GAP 17 (8-16); BLOOD UREA NITROGEN 51 mg/dl (7-20); CALCIUM 9.2 mg/dl (8.4-10.2); CARBON DIOXIDE 30 mmol/L (21-31); CHLORIDE 97 mmol/L (97-110); CREATININE 6.46 mg/dl (0.61-1.24); GLUCOSE 123 mg/dl (70-220); POTASSIUM 4.8 mmol/L (3.5-5.1); SODIUM 139 mmol/L (135-144)
[2017-05-10] MEDS: LOSARTAN 25 MG TAB GTB ×2 (09:00→22:11)
[2017-05-10] MEDS: LACTOBACILLUS RHAMNOSUS CAP GTB ×2 (09:24→22:10)
[2017-05-10] MEDS: NEUTRA-PHOS 250 MG PACKET NGT ×2 (09:25→22:12)
[2017-05-10] MEDS: CALCIUM ACETATE 667 MG CAP PO ×3 (09:25→18:15)
[2017-05-10] MEDS: SEVELAMER CARBONATE 0.8 GM PKT GTB ×3 (09:25→22:11)
[2017-05-10] MEDS: ARTIFICIAL TEARS 15 ML OPH BOTH EYES ×4 (09:26→21:00)
[2017-05-10] MEDS: BALSAM PERU/CASTOR OIL 60 GM TUBE TOP ×2 (09:26→21:00)
[2017-05-10] MEDS: GABAPENTIN (50 MG/ML PO SYG) PO ×3 (09:30→22:11)
[2017-05-10] MEDS: HEPARIN 1000 UNITS/ML 10 ML INJ CATHETER (17:53)
[2017-05-10] MEDS: WARFARIN 2 MG TAB GTB (18:16)
[2017-05-10] MEDS: EPOETIN 10000 UNITS/1 ML INJ (ESRD) SC (18:16)
[2017-05-10] MEDS: DOCUSATE SODIUM 100 MG CAP PO (22:10)
[2017-05-10] MEDS: ATORVASTATIN 80 MG TAB PO (22:11)
[2017-05-10] MEDS: POLYETHYLENE GLYCOL 17 GM PACKET GTB (22:12)
[2017-05-10] MEDS: INSULIN GLARGINE [LANtus] 3 ML PEN SC (22:20)
[2017-05-11] MEDS: ALBUTEROL/IPRATROPIUM (NEB) 3 ML AMP HHN ×4 (00:54→23:22)
[2017-05-11] MEDS: INSULIN ASPART [NOVOLOG] 3 ML PEN SC ×4 (06:00→17:43)
[2017-05-11] MEDS: LANSOPRAZOLE 30 MG CAP NGT ×2 (06:00→17:44)
[2017-05-11 07:25] LABS: INR 0.96; PROTIME 12.9 Sec (11.9-14.9)
[2017-05-11] MEDS: SEVELAMER CARBONATE 0.8 GM PKT GTB ×3 (08:49→22:33)
[2017-05-11] MEDS: ARTIFICIAL TEARS 15 ML OPH BOTH EYES ×4 (08:49→22:36)
[2017-05-11] MEDS: CALCIUM ACETATE 667 MG CAP PO ×3 (08:49→17:44)
[2017-05-11] MEDS: LACTOBACILLUS RHAMNOSUS CAP GTB (08:56)
[2017-05-11] MEDS: LOSARTAN 25 MG TAB GTB ×2 (08:56→22:34)
[2017-05-11] MEDS: NEUTRA-PHOS 250 MG PACKET NGT ×2 (08:57→22:36)
[2017-05-11] MEDS: ACETAMINOPHEN 325 MG TAB PO (08:57)
[2017-05-11] MEDS: GABAPENTIN (50 MG/ML PO SYG) PO ×3 (08:57→22:35)
[2017-05-11] MEDS: DOCUSATE SODIUM 10 MG/ML (10ML CUP) GTB (09:09)
[2017-05-11] MEDS: POLYETHYLENE GLYCOL 17 GM PACKET GTB (09:09)
[2017-05-11] MEDS: BALSAM PERU/CASTOR OIL 60 GM TUBE TOP ×2 (12:34→22:35)
[2017-05-11] MEDS: WARFARIN 5 MG TAB PO (17:44)
[2017-05-11] MEDS: ATORVASTATIN 80 MG TAB PO (22:33)
[2017-05-11] MEDS: DOCUSATE SODIUM 100 MG CAP PO (22:36)
[2017-05-11] MEDS: INSULIN GLARGINE [LANtus] 3 ML PEN SC (23:50)
[2017-05-12] MEDS: POLYETHYLENE GLYCOL 17 GM PACKET GTB (01:35)
[2017-05-12] MEDS: DOCUSATE SODIUM 10 MG/ML (10ML CUP) GTB ×2 (01:35→20:38)
[2017-05-12] MEDS: LANSOPRAZOLE 30 MG CAP NGT ×2 (05:36→17:45)
[2017-05-12] MEDS: INSULIN ASPART [NOVOLOG] 3 ML PEN SC ×4 (05:59→17:44)
[2017-05-12] MEDS: ALBUTEROL/IPRATROPIUM (NEB) 3 ML AMP HHN ×2 (07:24→15:39)
[2017-05-12] MEDS: NEUTRA-PHOS 250 MG PACKET NGT ×3 (09:00→20:38)
[2017-05-12] MEDS: ARTIFICIAL TEARS 15 ML OPH BOTH EYES ×4 (09:28→20:39)
[2017-05-12] MEDS: CALCIUM ACETATE 667 MG CAP PO ×3 (09:28→17:45)
[2017-05-12] MEDS: LACTOBACILLUS RHAMNOSUS CAP GTB ×3 (09:29→20:38)
[2017-05-12] MEDS: GABAPENTIN (50 MG/ML PO SYG) PO ×3 (09:29→20:38)
[2017-05-12] MEDS: SEVELAMER CARBONATE 0.8 GM PKT GTB ×3 (09:29→20:38)
[2017-05-12] MEDS: LOSARTAN 25 MG TAB GTB ×2 (09:29→21:00)
[2017-05-12] MEDS: BALSAM PERU/CASTOR OIL 60 GM TUBE TOP ×2 (09:30→20:38)
[2017-05-12 10:35] LABS: ADD MAN DIFF? NO
[2017-05-12 10:40] LABS: BASOPHIL # 0.1 10^3/ul (0.0-0.1); BASOPHILS % 0.9 % (0.0-2.0); EOSINOPHILS # 0.4 10^3/ul (0.0-0.5); EOSINOPHILS % 3.3 % (0.0-7.0); HEMATOCRIT 23.7 % (42.0-52.0); HEMOGLOBIN 7.6 g/dl (14.0-18.0); LYMPHOCYTES # 1.7 10^3/ul (0.8-2.9); LYMPHOCYTES % 14.9 % (15.0-51.0); MEAN CORPUSCULAR HEMOGLOBIN 28.1 pg (29.0-33.0); MEAN CORPUSCULAR HGB CONC 32.1 g/dl (32.0-37.0); MEAN CORPUSCULAR VOLUME 87.8 fl (82.0-101.0); MEAN PLATELET VOLUME 9.8 fl (7.4-10.4); MONOCYTE # 0.6 10^3/ul (0.3-0.9); NEUTROPHIL # 8.5 10^3/ul (1.6-7.5); NEUTROPHILS % 74.3 % (39.0-77.0); PLATELET COUNT 344 10^3/UL (140-415); RED CELL DISTRIBUTION WIDTH 17.5 % (11.5-14.5)
[2017-05-12 10:40] LABS: WHITE BLOOD COUNT 11.4 10^3/ul (4.8-10.8)
[2017-05-12 10:58] LABS: INR 0.93; PROTIME 12.5 Sec (11.9-14.9)
[2017-05-12 11:01] LABS: ANION GAP 17 (8-16); BLOOD UREA NITROGEN 54 mg/dl (7-20); CALCIUM 9.4 mg/dl (8.4-10.2); CARBON DIOXIDE 30 mmol/L (21-31); CHLORIDE 95 mmol/L (97-110); GLUCOSE 150 mg/dl (70-220); POTASSIUM 4.8 mmol/L (3.5-5.1); SODIUM 137 mmol/L (135-144)
[2017-05-12 11:03] LABS: MAGNESIUM 2.4 mg/dl (1.7-2.5)
[2017-05-12 11:03] LABS: PHOSPHORUS 2.7 mg/dl (2.5-4.9)
[2017-05-12] MEDS: WARFARIN 5 MG TAB PO (17:45)
[2017-05-12] MEDS: ATORVASTATIN 80 MG TAB PO (20:38)
[2017-05-12] MEDS: INSULIN GLARGINE [LANtus] 3 ML PEN SC (20:56)
[2017-05-12] MEDS ORDERED: NA PHOSPHATE/BIPHOS 133 ML ENEMA PR (22:00)
[2017-05-13] MEDS: HEPARIN 1000 UNITS/ML 10 ML INJ CATHETER (00:55)
[2017-05-13] MEDS: SENNA TAB GTB ×3 (01:27→21:38)
[2017-05-13] MEDS: MAGNESIUM HYDROXIDE 30ML CUP GTB (01:27)
[2017-05-13] MEDS: ALBUTEROL/IPRATROPIUM (NEB) 3 ML AMP HHN ×3 (01:38→15:51)
[2017-05-13] MEDS: LANSOPRAZOLE 30 MG CAP NGT ×2 (06:08→17:40)
[2017-05-13] MEDS: INSULIN ASPART [NOVOLOG] 3 ML PEN SC ×4 (06:33→17:43)
[2017-05-13 06:38] LABS: ADD MAN DIFF? NO
[2017-05-13 06:41] LABS: BASOPHIL # 0.1 10^3/ul (0.0-0.1); BASOPHILS % 1.3 % (0.0-2.0); EOSINOPHILS # 0.3 10^3/ul (0.0-0.5); EOSINOPHILS % 3.2 % (0.0-7.0); HEMATOCRIT 24.2 % (42.0-52.0); HEMOGLOBIN 7.7 g/dl (14.0-18.0); LYMPHOCYTES # 1.9 10^3/ul (0.8-2.9); LYMPHOCYTES % 20.7 % (15.0-51.0); MEAN CORPUSCULAR HGB CONC 31.8 g/dl (32.0-37.0); MEAN PLATELET VOLUME 9.7 fl (7.4-10.4); MONOCYTE # 0.4 10^3/ul (0.3-0.9); MONOCYTES % 4.7 % (0.0-11.0); NEUTROPHIL # 6.3 10^3/ul (1.6-7.5); PLATELET COUNT 328 10^3/UL (140-415); RED BLOOD COUNT 2.75 10^6/ul (4.70-6.10); RED CELL DISTRIBUTION WIDTH 18.1 % (11.5-14.5)
[2017-05-13 06:41] LABS: WHITE BLOOD COUNT 9.1 10^3/ul (4.8-10.8)
[2017-05-13 07:12] LABS: INR 0.98; PROTIME 13.1 Sec (11.9-14.9)
[2017-05-13 07:19] LABS: MAGNESIUM 2.4 mg/dl (1.7-2.5)
[2017-05-13 07:19] LABS: PHOSPHORUS 2.2 mg/dl (2.5-4.9)
[2017-05-13 07:49] LABS: ANION GAP 16 (8-16); BLOOD UREA NITROGEN 33 mg/dl (7-20); CALCIUM 9.1 mg/dl (8.4-10.2); CARBON DIOXIDE 30 mmol/L (21-31); CHLORIDE 98 mmol/L (97-110); CREATININE 4.28 mg/dl (0.61-1.24); GLUCOSE 148 mg/dl (70-220); POTASSIUM 4.3 mmol/L (3.5-5.1); SODIUM 140 mmol/L (135-144)
[2017-05-13] MEDS: NEUTRA-PHOS 250 MG PACKET NGT ×2 (09:00→21:38)
[2017-05-13] MEDS: ARTIFICIAL TEARS 15 ML OPH BOTH EYES ×4 (09:50→21:35)
[2017-05-13] MEDS: POLYETHYLENE GLYCOL 17 GM PACKET GTB (09:51)
[2017-05-13] MEDS: SEVELAMER CARBONATE 0.8 GM PKT GTB ×3 (09:52→21:38)
[2017-05-13] MEDS: GABAPENTIN (50 MG/ML PO SYG) PO ×3 (09:52→21:38)
[2017-05-13] MEDS: CALCIUM ACETATE 667 MG CAP PO ×3 (09:52→17:40)
[2017-05-13] MEDS: LOSARTAN 25 MG TAB GTB ×2 (09:53→21:37)
[2017-05-13] MEDS: LACTOBACILLUS RHAMNOSUS CAP GTB ×2 (09:53→21:37)
[2017-05-13] MEDS: BALSAM PERU/CASTOR OIL 60 GM TUBE TOP ×2 (09:54→21:41)
[2017-05-13] MEDS: WARFARIN 5 MG TAB PO (17:40)
[2017-05-13] MEDS: EPOETIN 10000 UNITS/1 ML INJ (ESRD) SC (17:41)
[2017-05-13] MEDS ORDERED: SODIUM CHLORIDE 0.9% 1L BAG IV (18:00)
[2017-05-13] MEDS ORDERED: HEPARIN 1000 UNITS/ML 10 ML INJ CATHETER (18:00)
[2017-05-13] MEDS ORDERED: ALBUMIN HUMAN 25% 50 ML IV (18:00)
[2017-05-13] MEDS: ATORVASTATIN 80 MG TAB PO (21:37)
[2017-05-13] MEDS: INSULIN GLARGINE [LANtus] 3 ML PEN SC (21:40)
[2017-05-14] MEDS: ALBUTEROL/IPRATROPIUM (NEB) 3 ML AMP HHN ×4 (01:04→23:34)
[2017-05-14] MEDS: INSULIN ASPART [NOVOLOG] 3 ML PEN SC ×4 (06:00→17:50)
[2017-05-14] MEDS: LANSOPRAZOLE 30 MG CAP NGT ×2 (06:17→17:48)
[2017-05-14] MEDS: ARTIFICIAL TEARS 15 ML OPH BOTH EYES ×4 (09:00→20:45)
[2017-05-14 09:30] LABS: ADD MAN DIFF? NO
[2017-05-14 09:55] LABS: ABNORMAL IP MESSAGE 1; BASOPHIL # 0.1 10^3/ul (0.0-0.1); BASOPHILS % 0.6 % (0.0-2.0); EOSINOPHILS # 0.4 10^3/ul (0.0-0.5); EOSINOPHILS % 3.8 % (0.0-7.0); HEMATOCRIT 20.8 % (42.0-52.0); LYMPHOCYTES # 1.5 10^3/ul (0.8-2.9); LYMPHOCYTES % 16.5 % (15.0-51.0); MEAN CORPUSCULAR HEMOGLOBIN 29.5 pg (29.0-33.0); MEAN CORPUSCULAR HGB CONC 32.2 g/dl (32.0-37.0); MEAN CORPUSCULAR VOLUME 91.6 fl (82.0-101.0); MONOCYTE # 0.5 10^3/ul (0.3-0.9); MONOCYTES % 5.5 % (0.0-11.0); NEUTROPHIL # 6.8 10^3/ul (1.6-7.5); NEUTROPHILS % 72.8 % (39.0-77.0); PLATELET COUNT 272 10^3/UL (140-415); POSITIVE DIFF @See below; RED BLOOD COUNT 2.27 10^6/ul (4.70-6.10); RED CELL DISTRIBUTION WIDTH 18.8 % (11.5-14.5)
[2017-05-14 09:55] LABS: WHITE BLOOD COUNT 9.3 10^3/ul (4.8-10.8)
[2017-05-14 10:00] LABS: HEMOGLOBIN 6.7 g/dl (14.0-18.0); PATH REVIEW? YES
[2017-05-14 10:10] LABS: INR 1.17; PROTIME 15.1 Sec (11.9-14.9); PT RATIO 1.2
[2017-05-14 10:11] LABS: ANION GAP 14 (8-16); BLOOD UREA NITROGEN 49 mg/dl (7-20); CALCIUM 9.5 mg/dl (8.4-10.2); CARBON DIOXIDE 31 mmol/L (21-31); CHLORIDE 96 mmol/L (97-110); GLUCOSE 130 mg/dl (70-220); POTASSIUM 4.4 mmol/L (3.5-5.1); SODIUM 137 mmol/L (135-144)
[2017-05-14 11:33] LABS: IMMEDIATE SPIN CROSSMATCH 1 1
[2017-05-14] MEDS: HEPARIN 1000 UNITS/ML 10 ML INJ CATHETER (12:27)
[2017-05-14] MEDS: GABAPENTIN (50 MG/ML PO SYG) PO ×3 (12:55→20:42)
[2017-05-14] MEDS: LOSARTAN 25 MG TAB GTB ×2 (12:55→20:44)
[2017-05-14] MEDS: NEUTRA-PHOS 250 MG PACKET NGT ×2 (12:55→20:41)
[2017-05-14] MEDS: SENNA TAB GTB ×2 (12:55→20:40)
[2017-05-14] MEDS: LACTOBACILLUS RHAMNOSUS CAP GTB ×2 (12:55→20:43)
[2017-05-14] MEDS: BALSAM PERU/CASTOR OIL 60 GM TUBE TOP ×2 (12:57→20:44)
[2017-05-14] MEDS: WARFARIN 5 MG TAB PO (17:48)
[2017-05-14] MEDS: ATORVASTATIN 80 MG TAB PO (20:41)
[2017-05-14] MEDS: INSULIN GLARGINE [LANtus] 3 ML PEN SC (21:50)
[2017-05-15] MEDS: LANSOPRAZOLE 30 MG CAP NGT ×2 (05:57→17:21)
[2017-05-15] MEDS: INSULIN ASPART [NOVOLOG] 3 ML PEN SC ×5 (05:57→23:52)
[2017-05-15] MEDS: ALBUTEROL/IPRATROPIUM (NEB) 3 ML AMP HHN ×3 (07:54→23:21)
[2017-05-15] MEDS: SENNA TAB GTB ×2 (08:48→20:22)
[2017-05-15 08:49] LABS: PATH REVIEW CH
[2017-05-15] MEDS: LOSARTAN 25 MG TAB GTB ×2 (08:49→20:21)
[2017-05-15] MEDS: NEUTRA-PHOS 250 MG PACKET NGT ×2 (08:49→20:20)
[2017-05-15] MEDS: LACTOBACILLUS RHAMNOSUS CAP GTB ×2 (08:50→20:20)
[2017-05-15] MEDS: ARTIFICIAL TEARS 15 ML OPH BOTH EYES ×4 (08:50→20:32)
[2017-05-15] MEDS: BALSAM PERU/CASTOR OIL 60 GM TUBE TOP ×2 (08:51→20:33)
[2017-05-15] MEDS: GABAPENTIN (50 MG/ML PO SYG) PO ×3 (08:58→20:22)
[2017-05-15 10:28] LABS: ADD MAN DIFF? NO
[2017-05-15 10:32] LABS: WHITE BLOOD COUNT 9.4 10^3/ul (4.8-10.8)
[2017-05-15 10:32] LABS: BASOPHIL # 0.1 10^3/ul (0.0-0.1); BASOPHILS % 1.4 % (0.0-2.0); EOSINOPHILS # 0.4 10^3/ul (0.0-0.5); EOSINOPHILS % 3.9 % (0.0-7.0); HEMATOCRIT 28.7 % (42.0-52.0); HEMOGLOBIN 9.3 g/dl (14.0-18.0); LYMPHOCYTES # 1.8 10^3/ul (0.8-2.9); LYMPHOCYTES % 18.6 % (15.0-51.0); MEAN CORPUSCULAR HGB CONC 32.4 g/dl (32.0-37.0); MEAN CORPUSCULAR VOLUME 89.4 fl (82.0-101.0); MEAN PLATELET VOLUME 9.9 fl (7.4-10.4); MONOCYTE # 0.6 10^3/ul (0.3-0.9); MONOCYTES % 6.4 % (0.0-11.0); NEUTROPHIL # 6.5 10^3/ul (1.6-7.5); NEUTROPHILS % 69.1 % (39.0-77.0); PLATELET COUNT 271 10^3/UL (140-415); RED BLOOD COUNT 3.21 10^6/ul (4.70-6.10); RED CELL DISTRIBUTION WIDTH 19.6 % (11.5-14.5)
[2017-05-15 10:55] LABS: ANION GAP 15 (8-16); BLOOD UREA NITROGEN 44 mg/dl (7-20); CALCIUM 9.4 mg/dl (8.4-10.2); CARBON DIOXIDE 32 mmol/L (21-31); CHLORIDE 96 mmol/L (97-110); CREATININE 5.42 mg/dl (0.61-1.24); GLUCOSE 131 mg/dl (70-220); POTASSIUM 4.6 mmol/L (3.5-5.1); SODIUM 138 mmol/L (135-144)
[2017-05-15 11:09] LABS: INR 1.07; PT RATIO 1.1
[2017-05-15] MEDS: WARFARIN 5 MG TAB PO (17:20)
[2017-05-15] MEDS: EPOETIN 10000 UNITS/1 ML INJ (ESRD) SC (17:27)
[2017-05-15] MEDS ORDERED: HEPARIN 1000 UNITS/ML 10 ML INJ CATHETER (17:30)
[2017-05-15] MEDS ORDERED: SODIUM CHLORIDE 0.9% 1L BAG IV (17:30)
[2017-05-15] MEDS ORDERED: ALBUMIN HUMAN 25% 50 ML IV (17:30)
[2017-05-15] MEDS: ATORVASTATIN 80 MG TAB PO (20:20)
[2017-05-15] MEDS: INSULIN GLARGINE [LANtus] 3 ML PEN SC (20:31)
[2017-05-15] MEDS: ACETAMINOPHEN 325 MG TAB PO (20:32)
[2017-05-16] MEDS: INSULIN ASPART [NOVOLOG] 3 ML PEN SC ×3 (05:14→17:20)
[2017-05-16] MEDS: LANSOPRAZOLE 30 MG CAP NGT ×2 (05:14→17:20)
[2017-05-16 07:48] LABS: ADD MAN DIFF? NO
[2017-05-16 07:53] LABS: BASOPHIL # 0.2 10^3/ul (0.0-0.1); BASOPHILS % 1.9 % (0.0-2.0); EOSINOPHILS # 0.4 10^3/ul (0.0-0.5); EOSINOPHILS % 4.7 % (0.0-7.0); HEMATOCRIT 26.4 % (42.0-52.0); HEMOGLOBIN 8.3 g/dl (14.0-18.0); LYMPHOCYTES # 1.7 10^3/ul (0.8-2.9); LYMPHOCYTES % 21.1 % (15.0-51.0); MEAN CORPUSCULAR HEMOGLOBIN 28.7 pg (29.0-33.0); MEAN CORPUSCULAR HGB CONC 31.4 g/dl (32.0-37.0); MEAN CORPUSCULAR VOLUME 91.3 fl (82.0-101.0); MEAN PLATELET VOLUME 10.8 fl (7.4-10.4); MONOCYTE # 0.5 10^3/ul (0.3-0.9); MONOCYTES % 6.8 % (0.0-11.0); NEUTROPHIL # 5.2 10^3/ul (1.6-7.5); PLATELET COUNT 238 10^3/UL (140-415); POSITIVE DIFF @See below; RED BLOOD COUNT 2.89 10^6/ul (4.70-6.10); RED CELL DISTRIBUTION WIDTH 19.8 % (11.5-14.5)
[2017-05-16 07:53] LABS: WHITE BLOOD COUNT 7.9 10^3/ul (4.8-10.8)
[2017-05-16 08:10] LABS: ANION GAP 18 (8-16); BLOOD UREA NITROGEN 63 mg/dl (7-20); CARBON DIOXIDE 25 mmol/L (21-31); CHLORIDE 99 mmol/L (97-110); CREATININE 6.73 mg/dl (0.61-1.24); GLUCOSE 98 mg/dl (70-220); POTASSIUM 4.6 mmol/L (3.5-5.1); SODIUM 137 mmol/L (135-144)
[2017-05-16 08:11] LABS: INR 1.18; PROTIME 15.2 Sec (11.9-14.9); PT RATIO 1.2
[2017-05-16] MEDS: ARTIFICIAL TEARS 15 ML OPH BOTH EYES ×4 (08:29→20:21)
[2017-05-16] MEDS: SENNA TAB GTB ×2 (08:30→20:11)
[2017-05-16] MEDS: NEUTRA-PHOS 250 MG PACKET NGT ×2 (08:30→20:10)
[2017-05-16] MEDS: GABAPENTIN (50 MG/ML PO SYG) PO ×3 (08:30→20:21)
[2017-05-16] MEDS: LACTOBACILLUS RHAMNOSUS CAP GTB ×2 (08:30→20:21)
[2017-05-16] MEDS: BALSAM PERU/CASTOR OIL 60 GM TUBE TOP ×2 (08:31→20:24)
[2017-05-16] MEDS: ALBUTEROL/IPRATROPIUM (NEB) 3 ML AMP HHN ×3 (08:56→23:00)
[2017-05-16] MEDS: LOSARTAN 25 MG TAB GTB ×2 (09:00→20:21)
[2017-05-16 12:11] LABS: AADO2 Arterial 43.8 mmHg (7.0-24.0); Allen Test ACCEPTAB; Arterial Base Excess 2.9 mmol/L (-3.0-3); Arterial Blood Gas Oxygen Sat 96.3 mmHG (95.0-98.0); Arterial Fraction of Oxyhgb 95.2 % (93.0-99.0); Arterial HCO3 28.7 mmol/L (22.0-26.0); Arterial MetHb 0.1 % (0.0-1.5); Arterial Total Hemglobin 12.1 g/dl (12.0-18.0); Arterial pCO2 48.9 mmhg (35-45); MODE NASAL CANNULA; Site Right Radial
[2017-05-16] MEDS ORDERED: HEPARIN 1000 UNITS/ML 10 ML INJ CATHETER (16:30)
[2017-05-16] MEDS: HEPARIN 1000 UNITS/ML 10 ML INJ CATHETER (17:19)
[2017-05-16] MEDS: Insulin NOVOLOG SS MODERATE Algorithm (SS with meals and bedtime) SC (20:13)
[2017-05-16] MEDS: INSULIN GLARGINE [LANtus] 3 ML PEN SC (20:16)
[2017-05-16] MEDS: ATORVASTATIN 80 MG TAB PO (20:24)
[2017-05-16] MEDS ORDERED: INSULIN ASPART [NOVOLOG] 3 ML PEN SC (21:00)
[2017-05-17] MEDS: ACCUCHECK AT 2AM (Patients on SS coverage) XX (02:00)
[2017-05-17] MEDS: LANSOPRAZOLE 30 MG CAP NGT ×2 (05:56→17:11)
[2017-05-17] MEDS: Insulin NOVOLOG SS MODERATE Algorithm (SS with meals and bedtime) SC ×4 (08:04→21:00)
[2017-05-17 08:27] LABS: ADD MAN DIFF? NO
[2017-05-17 08:38] LABS: WHITE BLOOD COUNT 7.4 10^3/ul (4.8-10.8)
[2017-05-17 08:38] LABS: BASOPHIL # 0.2 10^3/ul (0.0-0.1); EOSINOPHILS # 0.4 10^3/ul (0.0-0.5); EOSINOPHILS % 5.7 % (0.0-7.0); HEMATOCRIT 30.1 % (42.0-52.0); HEMOGLOBIN 9.2 g/dl (14.0-18.0); LYMPHOCYTES # 1.5 10^3/ul (0.8-2.9); LYMPHOCYTES % 20.4 % (15.0-51.0); MEAN CORPUSCULAR HEMOGLOBIN 28.5 pg (29.0-33.0); MEAN CORPUSCULAR HGB CONC 30.6 g/dl (32.0-37.0); MEAN CORPUSCULAR VOLUME 93.2 fl (82.0-101.0); MEAN PLATELET VOLUME 11.1 fl (7.4-10.4); MONOCYTE # 0.5 10^3/ul (0.3-0.9); MONOCYTES % 7.1 % (0.0-11.0); NEUTROPHIL # 4.8 10^3/ul (1.6-7.5); NEUTROPHILS % 64.4 % (39.0-77.0); PLATELET COUNT 196 10^3/UL (140-415); POSITIVE DIFF @See below; RED BLOOD COUNT 3.23 10^6/ul (4.70-6.10); RED CELL DISTRIBUTION WIDTH 20.2 % (11.5-14.5)
[2017-05-17] MEDS: GABAPENTIN (50 MG/ML PO SYG) PO ×3 (08:41→21:32)
[2017-05-17] MEDS: SENNA TAB GTB ×2 (08:42→21:18)
[2017-05-17] MEDS: NEUTRA-PHOS 250 MG PACKET NGT ×2 (08:42→21:17)
[2017-05-17] MEDS: LOSARTAN 25 MG TAB GTB ×2 (08:42→21:00)
[2017-05-17] MEDS: LACTOBACILLUS RHAMNOSUS CAP GTB ×2 (08:42→21:18)
[2017-05-17] MEDS: ARTIFICIAL TEARS 15 ML OPH BOTH EYES ×4 (08:43→21:19)
[2017-05-17] MEDS: BALSAM PERU/CASTOR OIL 60 GM TUBE TOP ×2 (08:44→21:21)
[2017-05-17] MEDS: ALBUTEROL/IPRATROPIUM (NEB) 3 ML AMP HHN ×2 (09:44→15:19)
[2017-05-17 10:52] LABS: ANION GAP 22 (8-16); BLOOD UREA NITROGEN 50 mg/dl (7-20); CALCIUM 9.2 mg/dl (8.4-10.2); CARBON DIOXIDE 27 mmol/L (21-31); CHLORIDE 96 mmol/L (97-110); CREATININE 5.45 mg/dl (0.61-1.24); GLUCOSE 144 mg/dl (70-220); POTASSIUM 4.5 mmol/L (3.5-5.1); SODIUM 140 mmol/L (135-144)
[2017-05-17] MEDS: EPOETIN 10000 UNITS/1 ML INJ (ESRD) SC (17:11)
[2017-05-17] MEDS ORDERED: SOD CHLORIDE 0.9% 1,000 ML IV (18:36)
[2017-05-17] MEDS ORDERED: SODIUM CHLORIDE 0.9% 1L BAG IV (19:00)
[2017-05-17] MEDS ORDERED: ALBUMIN HUMAN 25% 50 ML IV (19:00)
[2017-05-17] MEDS: ATORVASTATIN 80 MG TAB PO (21:20)
[2017-05-17] MEDS: INSULIN GLARGINE [LANtus] 3 ML PEN SC (21:49)
[2017-05-18] MEDS: ALBUTEROL/IPRATROPIUM (NEB) 3 ML AMP HHN ×4 (00:02→23:33)
[2017-05-18] MEDS: ACCUCHECK AT 2AM (Patients on SS coverage) XX (02:00)
[2017-05-18] MEDS: LANSOPRAZOLE 30 MG CAP NGT ×2 (05:26→17:03)
[2017-05-18] MEDS: Insulin NOVOLOG SS MODERATE Algorithm (SS with meals and bedtime) SC ×4 (07:25→20:13)
[2017-05-18 08:46] LABS: ADD MAN DIFF? NO
[2017-05-18 08:51] LABS: BASOPHIL # 0.1 10^3/ul (0.0-0.1); BASOPHILS % 1.4 % (0.0-2.0); EOSINOPHILS # 0.5 10^3/ul (0.0-0.5); EOSINOPHILS % 6.3 % (0.0-7.0); HEMATOCRIT 26.5 % (42.0-52.0); HEMOGLOBIN 8.3 g/dl (14.0-18.0); LYMPHOCYTES # 1.5 10^3/ul (0.8-2.9); LYMPHOCYTES % 18.7 % (15.0-51.0); MEAN CORPUSCULAR HEMOGLOBIN 28.6 pg (29.0-33.0); MEAN CORPUSCULAR HGB CONC 31.3 g/dl (32.0-37.0); MEAN CORPUSCULAR VOLUME 91.4 fl (82.0-101.0); MEAN PLATELET VOLUME 10.7 fl (7.4-10.4); MONOCYTE # 0.6 10^3/ul (0.3-0.9); MONOCYTES % 7.4 % (0.0-11.0); NEUTROPHIL # 5.2 10^3/ul (1.6-7.5); NEUTROPHILS % 65.8 % (39.0-77.0); PLATELET COUNT 230 10^3/UL (140-415); RED CELL DISTRIBUTION WIDTH 19.8 % (11.5-14.5)
[2017-05-18 10:04] LABS: INR 1.21; PROTIME 15.5 Sec (11.9-14.9); PT RATIO 1.2
[2017-05-18 10:07] LABS: ANION GAP 16 (8-16); BLOOD UREA NITROGEN 64 mg/dl (7-20); CALCIUM 8.6 mg/dl (8.4-10.2); CARBON DIOXIDE 29 mmol/L (21-31); CHLORIDE 95 mmol/L (97-110); CREATININE 6.76 mg/dl (0.61-1.24); GLUCOSE 118 mg/dl (70-220); POTASSIUM 4.4 mmol/L (3.5-5.1); SODIUM 136 mmol/L (135-144)
[2017-05-18] MEDS: HEPARIN 1000 UNITS/ML 10 ML INJ CATHETER (10:42)
[2017-05-18] MEDS: LOSARTAN 25 MG TAB GTB ×2 (10:50→20:10)
[2017-05-18] MEDS: ARTIFICIAL TEARS 15 ML OPH BOTH EYES ×4 (10:50→20:09)
[2017-05-18] MEDS: NEUTRA-PHOS 250 MG PACKET NGT ×2 (10:52→20:11)
[2017-05-18] MEDS: LACTOBACILLUS RHAMNOSUS CAP GTB ×2 (10:52→20:09)
[2017-05-18] MEDS: BALSAM PERU/CASTOR OIL 60 GM TUBE TOP ×2 (10:52→20:14)
[2017-05-18] MEDS: SENNA TAB GTB ×2 (10:52→20:10)
[2017-05-18] MEDS: GABAPENTIN (50 MG/ML PO SYG) PO ×3 (10:55→20:11)
[2017-05-18] MEDS: ATORVASTATIN 80 MG TAB PO (20:10)
[2017-05-18] MEDS: INSULIN GLARGINE [LANtus] 3 ML PEN SC (20:13)
[2017-05-19] MEDS: ACCUCHECK AT 2AM (Patients on SS coverage) XX (02:00)
[2017-05-19] MEDS: LANSOPRAZOLE 30 MG CAP NGT ×2 (05:27→17:20)
[2017-05-19] MEDS: Insulin NOVOLOG SS MODERATE Algorithm (SS with meals and bedtime) SC ×4 (07:25→20:41)
[2017-05-19] MEDS: ALBUTEROL/IPRATROPIUM (NEB) 3 ML AMP HHN ×3 (07:32→23:54)
[2017-05-19] MEDS: ARTIFICIAL TEARS 15 ML OPH BOTH EYES ×4 (09:08→20:38)
[2017-05-19] MEDS: BALSAM PERU/CASTOR OIL 60 GM TUBE TOP ×2 (09:09→20:43)
[2017-05-19] MEDS: GABAPENTIN (50 MG/ML PO SYG) PO ×3 (09:09→22:07)
[2017-05-19] MEDS: LOSARTAN 25 MG TAB GTB ×2 (09:10→20:39)
[2017-05-19] MEDS: LACTOBACILLUS RHAMNOSUS CAP GTB ×2 (09:10→20:40)
[2017-05-19] MEDS: SENNA TAB GTB ×2 (09:10→20:39)
[2017-05-19] MEDS: NEUTRA-PHOS 250 MG PACKET NGT ×2 (09:10→20:40)
[2017-05-19 11:34] LABS: INR 1.04; PROTIME 13.7 Sec (11.9-14.9); PT RATIO 1.1
[2017-05-19] MEDS ORDERED: ACETAMINOPHEN 325 MG TAB PO (20:30)
[2017-05-19] MEDS: ATORVASTATIN 80 MG TAB PO (20:39)
[2017-05-19] MEDS: INSULIN GLARGINE [LANtus] 3 ML PEN SC (20:42)
[2017-05-19] MEDS: ACETAMINOPHEN 650MG/20.3ML CUP GTB (22:08)
[2017-05-20] MEDS: ACCUCHECK AT 2AM (Patients on SS coverage) XX (02:00)
[2017-05-20] MEDS: LANSOPRAZOLE 30 MG CAP NGT ×2 (05:30→17:24)
[2017-05-20] MEDS: Insulin NOVOLOG SS MODERATE Algorithm (SS with meals and bedtime) SC ×4 (07:25→21:00)
[2017-05-20 08:11] LABS: ADD MAN DIFF? NO
[2017-05-20 08:17] LABS: BASOPHIL # 0.1 10^3/ul (0.0-0.1); BASOPHILS % 1.5 % (0.0-2.0); EOSINOPHILS # 0.6 10^3/ul (0.0-0.5); EOSINOPHILS % 10.2 % (0.0-7.0); HEMATOCRIT 28.2 % (42.0-52.0); HEMOGLOBIN 8.8 g/dl (14.0-18.0); LYMPHOCYTES # 1.2 10^3/ul (0.8-2.9); LYMPHOCYTES % 20.3 % (15.0-51.0); MEAN CORPUSCULAR HEMOGLOBIN 28.8 pg (29.0-33.0); MEAN CORPUSCULAR HGB CONC 31.2 g/dl (32.0-37.0); MEAN CORPUSCULAR VOLUME 92.2 fl (82.0-101.0); MEAN PLATELET VOLUME 11.1 fl (7.4-10.4); MONOCYTE # 0.5 10^3/ul (0.3-0.9); MONOCYTES % 7.8 % (0.0-11.0); NEUTROPHIL # 3.5 10^3/ul (1.6-7.5); NEUTROPHILS % 59.9 % (39.0-77.0); PLATELET COUNT 192 10^3/UL (140-415); POSITIVE DIFF @See below; RED BLOOD COUNT 3.06 10^6/ul (4.70-6.10); RED CELL DISTRIBUTION WIDTH 19.5 % (11.5-14.5)
[2017-05-20 08:17] LABS: WHITE BLOOD COUNT 5.9 10^3/ul (4.8-10.8)
[2017-05-20] MEDS: ALBUTEROL/IPRATROPIUM (NEB) 3 ML AMP HHN ×3 (08:20→23:43)
[2017-05-20] MEDS: SENNA TAB GTB ×2 (08:34→21:35)
[2017-05-20] MEDS: LOSARTAN 25 MG TAB GTB ×2 (08:35→21:35)
[2017-05-20] MEDS: LACTOBACILLUS RHAMNOSUS CAP GTB ×2 (08:35→21:34)
[2017-05-20] MEDS: ARTIFICIAL TEARS 15 ML OPH BOTH EYES ×4 (08:36→21:35)
[2017-05-20] MEDS: BALSAM PERU/CASTOR OIL 60 GM TUBE TOP ×2 (08:36→21:35)
[2017-05-20] MEDS: GABAPENTIN (50 MG/ML PO SYG) PO ×3 (08:36→21:34)
[2017-05-20 08:38] LABS: INR 0.96; PROTIME 12.9 Sec (11.9-14.9)
[2017-05-20 08:46] LABS: PHOSPHORUS 5.9 mg/dl (2.5-4.9)
[2017-05-20 11:37] LABS: ANION GAP 21 (8-16); BLOOD UREA NITROGEN 73 mg/dl (7-20); CALCIUM 8.8 mg/dl (8.4-10.2); CARBON DIOXIDE 22 mmol/L (21-31); CHLORIDE 101 mmol/L (97-110); CREATININE 6.37 mg/dl (0.61-1.24); GLUCOSE 127 mg/dl (70-220); POTASSIUM 4.8 mmol/L (3.5-5.1); SODIUM 139 mmol/L (135-144)
[2017-05-20] MEDS: HEPARIN 1000 UNITS/ML 10 ML INJ CATHETER (13:39)
[2017-05-20] MEDS: EPOETIN 10000 UNITS/1 ML INJ (ESRD) SC (17:25)
[2017-05-20] MEDS: ATORVASTATIN 80 MG TAB PO (21:34)
[2017-05-20] MEDS: INSULIN GLARGINE [LANtus] 3 ML PEN SC (21:47)
[2017-05-21] MEDS: ACCUCHECK AT 2AM (Patients on SS coverage) XX (01:43)
[2017-05-21] MEDS: LANSOPRAZOLE 30 MG CAP NGT ×2 (06:34→17:19)
[2017-05-21] MEDS: Insulin NOVOLOG SS MODERATE Algorithm (SS with meals and bedtime) SC ×4 (07:25→21:00)
[2017-05-21] MEDS: ALBUTEROL/IPRATROPIUM (NEB) 3 ML AMP HHN ×3 (08:28→23:44)
[2017-05-21] MEDS: BALSAM PERU/CASTOR OIL 60 GM TUBE TOP ×2 (09:43→21:58)
[2017-05-21] MEDS: SENNA TAB GTB ×2 (09:44→21:55)
[2017-05-21] MEDS: LOSARTAN 25 MG TAB GTB ×2 (09:44→21:56)
[2017-05-21] MEDS: LACTOBACILLUS RHAMNOSUS CAP GTB ×2 (09:44→21:55)
[2017-05-21] MEDS: ARTIFICIAL TEARS 15 ML OPH BOTH EYES ×4 (09:44→21:00)
[2017-05-21] MEDS: GABAPENTIN (50 MG/ML PO SYG) PO ×3 (11:26→21:55)
[2017-05-21 14:48] LABS: ADD MAN DIFF? NO
[2017-05-21 14:55] LABS: WHITE BLOOD COUNT 6.2 10^3/ul (4.8-10.8)
[2017-05-21 14:55] LABS: BASOPHIL # 0.1 10^3/ul (0.0-0.1); EOSINOPHILS # 0.7 10^3/ul (0.0-0.5); EOSINOPHILS % 10.9 % (0.0-7.0); HEMATOCRIT 27.8 % (42.0-52.0); HEMOGLOBIN 8.7 g/dl (14.0-18.0); LYMPHOCYTES # 1.2 10^3/ul (0.8-2.9); LYMPHOCYTES % 18.8 % (15.0-51.0); MEAN CORPUSCULAR HEMOGLOBIN 28.4 pg (29.0-33.0); MEAN CORPUSCULAR HGB CONC 31.3 g/dl (32.0-37.0); MEAN CORPUSCULAR VOLUME 90.8 fl (82.0-101.0); MEAN PLATELET VOLUME 10.9 fl (7.4-10.4); MONOCYTE # 0.4 10^3/ul (0.3-0.9); MONOCYTES % 6.5 % (0.0-11.0); NEUTROPHIL # 3.9 10^3/ul (1.6-7.5); NEUTROPHILS % 62.5 % (39.0-77.0); PLATELET COUNT 225 10^3/UL (140-415); RED BLOOD COUNT 3.06 10^6/ul (4.70-6.10); RED CELL DISTRIBUTION WIDTH 19.8 % (11.5-14.5)
[2017-05-21 15:15] LABS: ANION GAP 16 (8-16); BLOOD UREA NITROGEN 56 mg/dl (7-20); CALCIUM 9.4 mg/dl (8.4-10.2); CARBON DIOXIDE 30 mmol/L (21-31); CHLORIDE 97 mmol/L (97-110); CREATININE 5.35 mg/dl (0.61-1.24); GLUCOSE 130 mg/dl (70-220); POTASSIUM 4.9 mmol/L (3.5-5.1); SODIUM 138 mmol/L (135-144)
[2017-05-21] MEDS: SEVELAMER 800 MG TAB PO (17:19)
[2017-05-21] MEDS ORDERED: SODIUM CHLORIDE 0.9% 1L BAG IV (19:30)
[2017-05-21] MEDS ORDERED: ALBUMIN HUMAN 25% 50 ML IV (19:30)
[2017-05-21] MEDS: ATORVASTATIN 80 MG TAB PO (21:55)
[2017-05-21] MEDS: INSULIN GLARGINE [LANtus] 3 ML PEN SC (22:19)
[2017-05-22] MEDS: ACCUCHECK AT 2AM (Patients on SS coverage) XX (02:00)
[2017-05-22] MEDS: LANSOPRAZOLE 30 MG CAP NGT ×2 (07:03→18:28)
[2017-05-22] MEDS: Insulin NOVOLOG SS MODERATE Algorithm (SS with meals and bedtime) SC ×4 (07:25→20:56)
[2017-05-22] MEDS: SEVELAMER 800 MG TAB PO ×2 (07:55→12:00)
[2017-05-22] MEDS: ALBUTEROL/IPRATROPIUM (NEB) 3 ML AMP HHN ×3 (08:00→23:28)
[2017-05-22] MEDS: LACTOBACILLUS RHAMNOSUS CAP GTB ×2 (08:40→20:51)
[2017-05-22] MEDS: ARTIFICIAL TEARS 15 ML OPH BOTH EYES ×4 (08:40→20:50)
[2017-05-22] MEDS: LOSARTAN 25 MG TAB GTB ×2 (08:40→20:56)
[2017-05-22] MEDS: SENNA TAB GTB ×2 (08:41→20:51)
[2017-05-22] MEDS: BALSAM PERU/CASTOR OIL 60 GM TUBE TOP ×2 (08:41→21:00)
[2017-05-22] MEDS: GABAPENTIN (50 MG/ML PO SYG) PO ×3 (08:41→20:51)
[2017-05-22 10:00] LABS: ADD MAN DIFF? NO
[2017-05-22 10:05] LABS: BASOPHIL # 0.1 10^3/ul (0.0-0.1); BASOPHILS % 1.1 % (0.0-2.0); EOSINOPHILS # 0.8 10^3/ul (0.0-0.5); HEMATOCRIT 28.5 % (42.0-52.0); LYMPHOCYTES # 1.2 10^3/ul (0.8-2.9); LYMPHOCYTES % 21.7 % (15.0-51.0); MEAN CORPUSCULAR HEMOGLOBIN 28.8 pg (29.0-33.0); MEAN CORPUSCULAR HGB CONC 31.6 g/dl (32.0-37.0); MEAN CORPUSCULAR VOLUME 91.3 fl (82.0-101.0); MONOCYTE # 0.4 10^3/ul (0.3-0.9); MONOCYTES % 7.2 % (0.0-11.0); NEUTROPHILS % 55.6 % (39.0-77.0); PLATELET COUNT 226 10^3/UL (140-415); RED BLOOD COUNT 3.12 10^6/ul (4.70-6.10); RED CELL DISTRIBUTION WIDTH 19.9 % (11.5-14.5)
[2017-05-22 10:05] LABS: WHITE BLOOD COUNT 5.4 10^3/ul (4.8-10.8)
[2017-05-22 10:29] LABS: MAGNESIUM 1.9 mg/dl (1.7-2.5)
[2017-05-22 10:29] LABS: PHOSPHORUS 2.7 mg/dl (2.5-4.9)
[2017-05-22 10:31] LABS: ANION GAP 15 (8-16); BLOOD UREA NITROGEN 36 mg/dl (7-20); CALCIUM 9.2 mg/dl (8.4-10.2); CARBON DIOXIDE 29 mmol/L (21-31); CHLORIDE 101 mmol/L (97-110); CREATININE 3.73 mg/dl (0.61-1.24); GLUCOSE 102 mg/dl (70-220); POTASSIUM 3.7 mmol/L (3.5-5.1); SODIUM 141 mmol/L (135-144)
[2017-05-22] MEDS: HEPARIN 1000 UNITS/ML 10 ML INJ CATHETER (11:11)
[2017-05-22] MEDS: EPOETIN 10000 UNITS/1 ML INJ (ESRD) SC (18:56)
[2017-05-22] MEDS: ATORVASTATIN 80 MG TAB PO (20:51)
[2017-05-22] MEDS: INSULIN GLARGINE [LANtus] 3 ML PEN SC (21:26)
[2017-05-23] MEDS: ACCUCHECK AT 2AM (Patients on SS coverage) XX (02:00)
[2017-05-23] MEDS: LANSOPRAZOLE 30 MG CAP NGT ×2 (06:39→17:49)
[2017-05-23] MEDS: ALBUTEROL/IPRATROPIUM (NEB) 3 ML AMP HHN ×2 (08:00→15:28)
[2017-05-23] MEDS: GABAPENTIN (50 MG/ML PO SYG) PO ×2 (08:33→12:08)
[2017-05-23] MEDS: Insulin NOVOLOG SS MODERATE Algorithm (SS with meals and bedtime) SC ×3 (08:33→17:25)
[2017-05-23] MEDS: LACTOBACILLUS RHAMNOSUS CAP GTB (08:34)
[2017-05-23] MEDS: SENNA TAB GTB (08:34)
[2017-05-23] MEDS: ARTIFICIAL TEARS 15 ML OPH BOTH EYES ×3 (08:35→17:49)
[2017-05-23] MEDS: BALSAM PERU/CASTOR OIL 60 GM TUBE TOP (08:35)
[2017-05-23] MEDS: LOSARTAN 25 MG TAB GTB (08:35)
[2017-05-23 12:26] LABS: ADD MAN DIFF? NO
[2017-05-23 12:38] LABS: BASOPHIL # 0.1 10^3/ul (0.0-0.1); EOSINOPHILS # 0.9 10^3/ul (0.0-0.5); EOSINOPHILS % 14.8 % (0.0-7.0); HEMATOCRIT 28.4 % (42.0-52.0); LYMPHOCYTES # 1.5 10^3/ul (0.8-2.9); LYMPHOCYTES % 25.3 % (15.0-51.0); MEAN CORPUSCULAR HEMOGLOBIN 28.8 pg (29.0-33.0); MEAN CORPUSCULAR HGB CONC 31.7 g/dl (32.0-37.0); MEAN PLATELET VOLUME 11.6 fl (7.4-10.4); MONOCYTE # 0.5 10^3/ul (0.3-0.9); MONOCYTES % 7.8 % (0.0-11.0); NEUTROPHILS % 50.6 % (39.0-77.0); PLATELET COUNT 182 10^3/UL (140-415); POSITIVE DIFF @See below; RED BLOOD COUNT 3.12 10^6/ul (4.70-6.10); RED CELL DISTRIBUTION WIDTH 19.4 % (11.5-14.5)
[2017-05-23 12:57] LABS: ANION GAP 16 (8-16); BLOOD UREA NITROGEN 50 mg/dl (7-20); CALCIUM 9.4 mg/dl (8.4-10.2); CARBON DIOXIDE 24 mmol/L (21-31); CHLORIDE 102 mmol/L (97-110); CREATININE 5.03 mg/dl (0.61-1.24); GLUCOSE 98 mg/dl (70-220); POTASSIUM 4.8 mmol/L (3.5-5.1); SODIUM 137 mmol/L (135-144)
[2017-05-23 12:58] LABS: PHOSPHORUS 4.4 mg/dl (2.5-4.9)
== END 2017-05-23 19:45 | DRG 4 ==
LOC: ICU 03-09 05:16 → TEL 04-02 18:03 → E/R 20:02 → ICU 23:13 → MS3 21:51
PROC: 0JH63XZ Insertion of Tunneled Vascular Access Device into Chest Subcutaneous Tissue and Fascia, Percutaneous Approach (ICD-10-PCS; 2017-03-19 12:30)
PROC: 02HV33Z Insertion of Infusion Device into Superior Vena Cava, Percutaneous Approach (ICD-10-PCS; 2017-03-19 12:30)
PROC: 0B110F4 Bypass Trachea to Cutaneous with Tracheostomy Device, Open Approach (ICD-10-PCS; principal; 2017-03-19 13:16)
PROC: 5A1955Z Respiratory Ventilation, Greater than 96 Consecutive Hours (ICD-10-PCS; 2017-03-19 13:16)
PROC: 0DH68UZ Insertion of Feeding Device into Stomach, Via Natural or Artificial Opening Endoscopic (ICD-10-PCS; 2017-03-19 13:16)
PROC: 0BH17EZ Insertion of Endotracheal Airway into Trachea, Via Natural or Artificial Opening (ICD-10-PCS; 2017-03-19 13:16)
PROC: 30233N1 Transfusion of Nonautologous Red Blood Cells into Peripheral Vein, Percutaneous Approach (ICD-10-PCS; 2017-03-19 13:16)
PROC: 05HM33Z Insertion of Infusion Device into Right Internal Jugular Vein, Percutaneous Approach (ICD-10-PCS; 2017-03-19 13:16)
PROC: 5A1D70Z Performance of Urinary Filtration, Intermittent, Less than 6 Hours Per Day (ICD-10-PCS; 2017-03-19 13:16)
PROC: 0B21XEZ Change Endotracheal Airway in Trachea, External Approach (ICD-10-PCS; 2017-03-19 13:16)
DX: I13.2 Hypertensive heart and chronic kidney disease with heart failure and with stage 5 chronic kidney disease, or end stage renal disease (principal); N17.0 Acute kidney failure with tubular necrosis; R57.8 Other shock; I63.9 Cerebral infarction, unspecified; G93.1 Anoxic brain damage, not elsewhere classified; A41.9 Sepsis, unspecified organism; J18.9 Pneumonia, unspecified organism; N18.6 End stage renal disease; J96.91 Respiratory failure, unspecified with hypoxia; J96.92 Respiratory failure, unspecified with hypercapnia; I50.23 Acute on chronic systolic (congestive) heart failure; I46.9 Cardiac arrest, cause unspecified; I50.43 Acute on chronic combined systolic (congestive) and diastolic (congestive) heart failure; J95.851 Ventilator associated pneumonia; R65.10 Systemic inflammatory response syndrome (SIRS) of non-infectious origin without acute organ dysfunction; N17.9 Acute kidney failure, unspecified; Z68.41 Body mass index [BMI] 40.0-44.9, adult; N39.0 Urinary tract infection, site not specified; T85.79XA Infection and inflammatory reaction due to other internal prosthetic devices, implants and grafts, initial encounter; D62 Acute posthemorrhagic anemia; I95.9 Hypotension, unspecified; E11.65 Type 2 diabetes mellitus with hyperglycemia; E66.01 Morbid (severe) obesity due to excess calories; F17.200 Nicotine dependence, unspecified, uncomplicated; Z95.1 Presence of aortocoronary bypass graft; Z95.5 Presence of coronary angioplasty implant and graft; I25.5 Ischemic cardiomyopathy; G47.33 Obstructive sleep apnea (adult) (pediatric); Z99.2 Dependence on renal dialysis; R19.7 Diarrhea, unspecified; K80.20 Calculus of gallbladder without cholecystitis without obstruction; D63.8 Anemia in other chronic diseases classified elsewhere; R13.10 Dysphagia, unspecified; B96.1 Klebsiella pneumoniae [K. pneumoniae] as the cause of diseases classified elsewhere; Z16.24 Resistance to multiple antibiotics; I48.91 Unspecified atrial fibrillation; H70.93 Unspecified mastoiditis, bilateral
CPT/HCPCS: 31500; 36415; 36430; 36600; 70551; 71010; 71020; 71045; 71260; 74000; 74176; 74177; 76700; 76705; 76775; 78226; 78806; 80048; 80053; 80061; 80202; 81001; 81003; 82550; 82553; 82570; 82728; 82803; 82962; 83036; 83540; 83605; 83690; 83735; 83880; 83970; 84100; 84155; 84300; 84443; 84484; 84560; 85025; 85610; 85730; 86038; 86255; 86704; 86706; 86709; 86803; 86850; 86900; 86901; 86920; 87040; 87070; 87075; 87081; 87086; 87177; 87205; 87340; 89220; 90935; 92522; 92526; 92610; 92950; 93005; 93306; 93970; 94002; 94003; 94640; 94660; 94664; 94770; 95819; 96374; 97110; 97163; 97530; 97542; 99291-25; J1940

== ENCOUNTER 2017-10-28 15:26 | Inpatient (IN) | payer MEDICARE, BC, OTHER ==
[2017-10-28 16:00] LABS: ADD MAN DIFF? NO
[2017-10-28 16:06] LABS: BASOPHIL # 0.1 10^3/ul (0.0-0.1); BASOPHILS % 0.9 % (0.0-2.0); EOSINOPHILS # 0.4 10^3/ul (0.0-0.5); EOSINOPHILS % 5.4 % (0.0-7.0); HEMATOCRIT 30.4 % (42.0-52.0); HEMOGLOBIN 9.9 g/dl (14.0-18.0); IMMATURE GRANS #M 0.01 10^3/ul; IMMATURE GRANS % (M) 0.2 %; LYMPHOCYTES # 1.4 10^3/ul (0.8-2.9); LYMPHOCYTES % 20.7 % (15.0-51.0); MEAN CORPUSCULAR HGB CONC 32.6 g/dl (32.0-37.0); MEAN CORPUSCULAR VOLUME 92.1 fl (82.0-101.0); MEAN PLATELET VOLUME 11.8 fl (7.4-10.4); MONOCYTE # 0.3 10^3/ul (0.3-0.9); MONOCYTES % 5.1 % (0.0-11.0); NEUTROPHIL # 4.5 10^3/ul (1.6-7.5); NEUTROPHILS % 67.7 % (39.0-77.0); PLATELET COUNT 173 10^3/UL (140-415); RED CELL DISTRIBUTION WIDTH 14.3 % (11.5-14.5)
[2017-10-28 16:06] LABS: WHITE BLOOD COUNT 6.6 10^3/ul (4.8-10.8)
[2017-10-28 16:23] LABS: ANION GAP 18 (8-16); BLOOD UREA NITROGEN 62 mg/dl (7-20); CALCIUM 9.5 mg/dl (8.4-10.2); CARBON DIOXIDE 26 mmol/L (21-31); CHLORIDE 102 mmol/L (97-110); CREATININE 7.29 mg/dl (0.61-1.24); GLUCOSE 139 mg/dl (70-220); SODIUM 140 mmol/L (135-144)
[2017-10-28 16:24] LABS: INR 0.94; PARTIAL THROMBOPLASTIN TIME 25.4 Sec (25.0-35.0); PROTIME 12.7 Sec (11.9-14.9)
[2017-10-28 16:29] LABS: POTASSIUM 5.6 mmol/L (3.5-5.1)
[2017-10-28] MEDS ORDERED: ONDANSETRON 4 MG INJ IV ×2 (18:30→19:30)
[2017-10-28] MEDS ORDERED: ACETAMINOPHEN 325 MG TAB PO ×2 (18:30→19:30)
[2017-10-28] MEDS ORDERED: NACL 0.9% 3 ML SYG IV (19:30)
[2017-10-28] MEDS ORDERED: morphine 2 MG INJ IV (19:30)
[2017-10-28] MEDS ORDERED: DOCUSATE SODIUM 100 MG CAP PO (19:30)
[2017-10-28] MEDS ORDERED: HYDROCODONE/APAP (5/325) TAB PO (19:30)
[2017-10-28] MEDS ORDERED: ZOLPIDEM 5 MG TAB PO (19:30)
[2017-10-28] MEDS: INSULIN GLARGINE [LANTus] (100 UNITS/ML) SYG SC (21:00)
[2017-10-28] MEDS: INSULIN ASPART [NOVOLOG] 3 ML PEN SC (21:00)
[2017-10-28] MEDS ORDERED: GLUCAGON 1 MG INJ IM (22:00)
[2017-10-28] MEDS ORDERED: GLUCOSE GEL 15 GRAM TUBE BUCCAL (22:00)
[2017-10-28] MEDS ORDERED: DEXTROSE 50% 50 ML SYRINGE IV ×2 (22:00)
[2017-10-28] MEDS ORDERED: GLUCOSE GEL 15 GRAM TUBE PO ×2 (22:00)
[2017-10-28] MEDS: PANTOPRAZOLE (EC) 40 MG TAB PO (23:19)
[2017-10-28] MEDS: GABAPENTIN 100 MG CAP PO (23:19)
[2017-10-28] MEDS: LOSARTAN 25 MG TAB PO (23:19)
[2017-10-28] MEDS: ATORVASTATIN 20 MG TAB PO (23:20)
[2017-10-28] MEDS: hydrALAzine 20 MG INJ IV (23:40)
[2017-10-29] MEDS: ACCU-CHEK XX (02:00)
[2017-10-29] MEDS: hydrALAzine 20 MG INJ IV (04:44)
[2017-10-29] MEDS: FUROSEMIDE 20 MG INJ IV (05:09)
[2017-10-29 05:14] LABS: AADO2 Arterial 400.4 mmHg (7.0-24.0); Allen Test ACCEPTAB; Arterial Base Excess -5.4 mmol/L (-3.0-3); Arterial Blood Gas Oxygen Sat 98.2 mmHG (95.0-98.0); Arterial Fraction of Oxyhgb 97.1 % (93.0-99.0); Arterial HCO3 29.2 mmol/L (22.0-26.0); Arterial MetHb 0.1 % (0.0-1.5); Arterial Total Hemglobin 12.7 g/dl (12.0-18.0); Arterial pCO2 128.3 mmhg (35-45); MODE MASK - NRB; Site Left Radial
[2017-10-29] MEDS: PANTOPRAZOLE (EC) 40 MG TAB PO ×2 (05:51→17:14)
[2017-10-29 06:06] LABS: AADO2 Arterial 529.9 mmHg (7.0-24.0); Allen Test ACCEPTAB; Arterial Base Excess -6.6 mmol/L (-3.0-3); Arterial Blood Gas Oxygen Sat 93.8 mmHG (95.0-98.0); Arterial Fraction of Oxyhgb 92.8 % (93.0-99.0); Arterial HCO3 25.6 mmol/L (22.0-26.0); Arterial MetHb 0.1 % (0.0-1.5); Arterial Total Hemglobin 12.1 g/dl (12.0-18.0); Arterial pCO2 94.2 mmhg (35-45); Blood Gas IEPAP 20/5; Blood Gas PS 15; MODE MASK - BIPAP
[2017-10-29 07:02] LABS: ADD MAN DIFF? NO
[2017-10-29 07:11] LABS: WHITE BLOOD COUNT 10.6 10^3/ul (4.8-10.8)
[2017-10-29 07:11] LABS: ABNORMAL IP MESSAGE 1; BASOPHILS % 0.3 % (0.0-2.0); EOSINOPHILS % 0.1 % (0.0-7.0); HEMATOCRIT 34.7 % (42.0-52.0); HEMOGLOBIN 10.9 g/dl (14.0-18.0); IMMATURE GRANS #M 0.17 10^3/ul; IMMATURE GRANS % (M) 1.6 %; LYMPHOCYTES # 0.6 10^3/ul (0.8-2.9); LYMPHOCYTES % 5.5 % (15.0-51.0); MEAN CORPUSCULAR HEMOGLOBIN 30.2 pg (29.0-33.0); MEAN CORPUSCULAR HGB CONC 31.4 g/dl (32.0-37.0); MEAN CORPUSCULAR VOLUME 96.1 fl (82.0-101.0); MEAN PLATELET VOLUME 11.5 fl (7.4-10.4); MONOCYTE # 0.2 10^3/ul (0.3-0.9); MONOCYTES % 1.8 % (0.0-11.0); NEUTROPHIL # 9.6 10^3/ul (1.6-7.5); NEUTROPHILS % 90.7 % (39.0-77.0); PLATELET COUNT 185 10^3/UL (140-415); POSITIVE DIFF @See below; RED BLOOD COUNT 3.61 10^6/ul (4.70-6.10); RED CELL DISTRIBUTION WIDTH 14.6 % (11.5-14.5)
[2017-10-29 07:47] LABS: HEMOGLOBIN A1C 6.6 % (0-5.9)
[2017-10-29] MEDS: INSULIN ASPART [NOVOLOG] 3 ML PEN SC ×4 (07:55→21:00)
[2017-10-29] MEDS: ALBUTEROL/IPRATROPIUM (NEB) 3 ML AMP HHN ×4 (09:00→21:20)
[2017-10-29 09:12] LABS: AADO2 Arterial 405.4 mmHg (7.0-24.0); Allen Test ACCEPTAB; Arterial Base Excess -5.2 mmol/L (-3.0-3); Arterial Blood Gas Oxygen Sat 92.9 mmHG (95.0-98.0); Arterial COHb 0.8 % (0.0-3.0); Arterial Fraction of Oxyhgb 92.2 % (93.0-99.0); Arterial HCO3 25.8 mmol/L (22.0-26.0); Arterial MetHb 0 % (0.0-1.5); Arterial pCO2 82.8 mmhg (35-45); Blood Gas IEPAP 20/5; Blood Gas PS 15; MODE MASK - BIPAP; Site Right Radial
[2017-10-29 09:22] LABS: ANION GAP 23 (8-16); BLOOD UREA NITROGEN 74 mg/dl (7-20); CALCIUM 8.6 mg/dl (8.4-10.2); CARBON DIOXIDE 22 mmol/L (21-31); CHLORIDE 103 mmol/L (97-110); GLUCOSE 124 mg/dl (70-220); PHOSPHORUS 9.1 mg/dl (2.5-4.9); SODIUM 140 mmol/L (135-144)
[2017-10-29 09:27] LABS: POTASSIUM 7.6 mmol/L (3.5-5.1)
[2017-10-29 09:52] LABS: HEPATITIS B SURFACE ANTIGEN NEGATIVE (NEGATIVE)
[2017-10-29] MEDS ORDERED: HEPARIN 1000 UNITS/ML 10 ML INJ (12:02)
[2017-10-29] MEDS: HEPARIN 1000 UNITS/ML 10 ML INJ CATHETER (12:42)
[2017-10-29] MEDS: LOSARTAN 25 MG TAB PO (14:17)
[2017-10-29] MEDS: ASPIRIN (EC) 81 MG TAB PO (14:17)
[2017-10-29] MEDS: ATORVASTATIN 20 MG TAB PO (21:27)
[2017-10-29] MEDS: GABAPENTIN 100 MG CAP PO (21:28)
[2017-10-29] MEDS: INSULIN GLARGINE [LANTus] (100 UNITS/ML) SYG SC (21:46)
[2017-10-30] MEDS: ALBUTEROL/IPRATROPIUM (NEB) 3 ML AMP HHN ×6 (00:09→20:08)
[2017-10-30] MEDS: ACCU-CHEK XX (02:00)
[2017-10-30] MEDS: PANTOPRAZOLE (EC) 40 MG TAB PO ×2 (06:00→17:30)
[2017-10-30] MEDS: INSULIN ASPART [NOVOLOG] 3 ML PEN SC ×4 (07:55→20:56)
[2017-10-30 07:57] LABS: AADO2 Arterial 79.6 mmHg (7.0-24.0); Allen Test ACCEPTAB; Arterial Base Excess 0.9 mmol/L (-3.0-3); Arterial COHb 0.8 % (0.0-3.0); Arterial HCO3 27.5 mmol/L (22.0-26.0); Arterial MetHb 0.3 % (0.0-1.5); Arterial pCO2 53.7 mmhg (35-45); Blood Gas IEPAP 20/5; Blood Gas PS 15; MODE MASK - BIPAP; Site Right Radial
[2017-10-30] MEDS: ASPIRIN (EC) 81 MG TAB PO (08:27)
[2017-10-30] MEDS ORDERED: SODIUM CHLORIDE 0.9% 1L BAG IV (12:00)
[2017-10-30] MEDS ORDERED: MANNITOL 25% 50 ML IV (12:00)
[2017-10-30 15:53] LABS: ANION GAP 19 (8-16); BLOOD UREA NITROGEN 71 mg/dl (7-20); CALCIUM 8.1 mg/dl (8.4-10.2); CARBON DIOXIDE 26 mmol/L (21-31); CHLORIDE 98 mmol/L (97-110); CREATININE 7.83 mg/dl (0.61-1.24); GLUCOSE 134 mg/dl (70-220); POTASSIUM 4.9 mmol/L (3.5-5.1); SODIUM 138 mmol/L (135-144)
[2017-10-30] MEDS: ATORVASTATIN 20 MG TAB PO (20:58)
[2017-10-30] MEDS: GABAPENTIN 100 MG CAP PO (20:58)
[2017-10-30] MEDS: INSULIN GLARGINE [LANTus] (100 UNITS/ML) SYG SC (21:15)
[2017-10-31] MEDS: ACCU-CHEK XX (01:08)
[2017-10-31] MEDS: ALBUTEROL/IPRATROPIUM (NEB) 3 ML AMP HHN ×5 (01:13→17:00)
[2017-10-31] MEDS: PANTOPRAZOLE (EC) 40 MG TAB PO (05:36)
[2017-10-31 07:37] LABS: MAGNESIUM 1.9 mg/dl (1.7-2.5)
[2017-10-31] MEDS: INSULIN ASPART [NOVOLOG] 3 ML PEN SC ×2 (07:54→11:50)
[2017-10-31] MEDS: HEPARIN 1000 UNITS/ML 10 ML INJ CATHETER (12:31)
[2017-10-31] MEDS: ASPIRIN (EC) 81 MG TAB PO (12:40)
== END 2017-10-31 16:40 | DRG 291 ==
LOC: TEL 18:20 → E/R 15:26 → TEL 10-29 14:06
PROC: 5A1D70Z Performance of Urinary Filtration, Intermittent, Less than 6 Hours Per Day (ICD-10-PCS; 2017-10-29)
PROC: 5A09357 Assistance with Respiratory Ventilation, Less than 24 Consecutive Hours, Continuous Positive Airway Pressure (ICD-10-PCS; 2017-10-29)
PROC: 5A1D70Z Performance of Urinary Filtration, Intermittent, Less than 6 Hours Per Day (ICD-10-PCS; principal; 2017-10-30)
DX: I13.2 Hypertensive heart and chronic kidney disease with heart failure and with stage 5 chronic kidney disease, or end stage renal disease (principal); N18.6 End stage renal disease; G93.40 Encephalopathy, unspecified; J96.01 Acute respiratory failure with hypoxia; J96.02 Acute respiratory failure with hypercapnia; I50.30 Unspecified diastolic (congestive) heart failure; N25.81 Secondary hyperparathyroidism of renal origin; I42.9 Cardiomyopathy, unspecified; E11.22 Type 2 diabetes mellitus with diabetic chronic kidney disease; E66.01 Morbid (severe) obesity due to excess calories; E87.5 Hyperkalemia; Z95.1 Presence of aortocoronary bypass graft; D63.8 Anemia in other chronic diseases classified elsewhere; Z68.37 Body mass index [BMI] 37.0-37.9, adult; F17.210 Nicotine dependence, cigarettes, uncomplicated; E78.5 Hyperlipidemia, unspecified; J44.9 Chronic obstructive pulmonary disease, unspecified; I48.0 Paroxysmal atrial fibrillation; I25.10 Atherosclerotic heart disease of native coronary artery without angina pectoris; G47.33 Obstructive sleep apnea (adult) (pediatric); Z99.2 Dependence on renal dialysis; Z79.4 Long term (current) use of insulin
CPT/HCPCS: 36415; 36600; 70450; 71045; 80048; 82803; 82962; 83036; 83735; 84100; 84132; 84484; 85025; 85610; 85730; 87340; 90935; 94640; 94660; 94664; 99285-25

== ENCOUNTER → 2018-02-19 | Day surgery (SDC) | payer MEDICARE, BC ==
[2018-02-19 11:40] LABS: ADD MAN DIFF? NO
[2018-02-19 11:48] LABS: WHITE BLOOD COUNT 7.4 10^3/ul (4.8-10.8)
[2018-02-19 11:48] LABS: BASOPHIL # 0.1 10^3/ul (0.0-0.1); BASOPHILS % 0.9 % (0.0-2.0); EOSINOPHILS # 0.6 10^3/ul (0.0-0.5); EOSINOPHILS % 7.6 % (0.0-7.0); HEMATOCRIT 32.7 % (42.0-52.0); HEMOGLOBIN 10.4 g/dl (14.0-18.0); LYMPHOCYTES # 1.4 10^3/ul (0.8-2.9); LYMPHOCYTES % 18.7 % (15.0-51.0); MEAN CORPUSCULAR HEMOGLOBIN 29.3 pg (29.0-33.0); MEAN CORPUSCULAR HGB CONC 31.8 g/dl (32.0-37.0); MEAN CORPUSCULAR VOLUME 92.1 fl (82.0-101.0); MEAN PLATELET VOLUME 11.4 fl (7.4-10.4); MONOCYTE # 0.4 10^3/ul (0.3-0.9); MONOCYTES % 5.8 % (0.0-11.0); NEUTROPHIL # 4.9 10^3/ul (1.6-7.5); NEUTROPHILS % 66.6 % (39.0-77.0); PLATELET COUNT 196 10^3/UL (140-415); RED BLOOD COUNT 3.55 10^6/ul (4.70-6.10); RED CELL DISTRIBUTION WIDTH 14.4 % (11.5-14.5)
[2018-02-19 11:51] LABS: ALANINE AMINOTRANSFERASE 20 IU/L (13-69); ALBUMIN 3.7 g/dl (3.3-4.9); ALBUMIN/GLOBULIN RATIO 1.23; ALKALINE PHOSPHATASE 50 IU/L (42-121); ANION GAP 11 (5-13); ASPARTATE AMINO TRANSFERASE 9 IU/L (15-46); BILIRUBIN,INDIRECT 0.2 mg/dl (0-1.1); BILIRUBIN,TOTAL 0.2 mg/dl (0.2-1.3); CARBON DIOXIDE 30 mmol/L (21-31); CHLORIDE 99 mmol/L (97-110); Estimated GFR 11 mL/min (>60); GLUCOSE 131 mg/dl (70-220); SODIUM 140 mmol/L (135-144); TOTAL PROTEIN 6.7 g/dl (6.1-8.1)
[2018-02-19 11:52] LABS: POTASSIUM 4.5 mmol/L (3.5-5.1)
[2018-02-19 11:54] LABS: BLOOD UREA NITROGEN 50 mg/dl (7-20); CREATININE 5.56 mg/dl (0.61-1.24)
[2018-02-19 12:50] LABS: INR 1.02; PROTIME 13.5 Sec (11.9-14.9); PT RATIO 1.1
[2018-02-19 12:57] LABS: PARTIAL THROMBOPLASTIN TIME 38.8 Sec (23.0-35.0)
== END | disposition home or self-care (01) ==
LOC: SDS 10:26
DX: I12.0 Hypertensive chronic kidney disease with stage 5 chronic kidney disease or end stage renal disease (principal); N18.6 End stage renal disease; Z99.2 Dependence on renal dialysis; Z53.9 Procedure and treatment not carried out, unspecified reason; E11.9 Type 2 diabetes mellitus without complications
CPT/HCPCS: 71045; 80053; 82962; 85025; 85610; 85730; 93005

== ENCOUNTER 2018-04-11 09:08 | Day surgery (SDC) | payer MEDICARE, BC, OTHER ==
[2018-04-11] MEDS: GELATIN SIZE 100 SPONGE
[2018-04-11] MEDS: POLYMYXIN/BACITRACIN 1L IRRIG
[2018-04-11] MEDS: THROMBIN 5000 UNIT VIAL
[2018-04-11 10:53] LABS: ADD MAN DIFF? NO
[2018-04-11 10:55] LABS: BASOPHIL # 0.1 10^3/ul (0.0-0.1); EOSINOPHILS % 13.6 % (0.0-7.0); HEMATOCRIT 33.6 % (42.0-52.0); HEMOGLOBIN 10.4 g/dl (14.0-18.0); LYMPHOCYTES # 1.5 10^3/ul (0.8-2.9); LYMPHOCYTES % 21.9 % (15.0-51.0); MEAN CORPUSCULAR HEMOGLOBIN 29.2 pg (29.0-33.0); MEAN CORPUSCULAR VOLUME 94.4 fl (82.0-101.0); MEAN PLATELET VOLUME 11.6 fl (7.4-10.4); MONOCYTE # 0.5 10^3/ul (0.3-0.9); MONOCYTES % 6.7 % (0.0-11.0); NEUTROPHILS % 56.5 % (39.0-77.0); PLATELET COUNT 106 10^3/UL (140-415); RED BLOOD COUNT 3.56 10^6/ul (4.70-6.10); RED CELL DISTRIBUTION WIDTH 14.3 % (11.5-14.5)
[2018-04-11 11:13] LABS: ANION GAP 17 (5-13); CARBON DIOXIDE 30 mmol/L (21-31); CHLORIDE 95 mmol/L (97-110); Estimated GFR 8 mL/min (>60); GLUCOSE 127 mg/dl (70-220)
[2018-04-11 11:24] LABS: BLOOD UREA NITROGEN 41 mg/dl (7-20); CREATININE 6.87 mg/dl (0.61-1.24); POTASSIUM 4.2 mmol/L (3.5-5.1); SODIUM 142 mmol/L (135-144)
[2018-04-11 11:25] LABS: CALCIUM 9.4 mg/dl (8.4-10.2)
[2018-04-11 11:33] LABS: INR 1.04; PROTIME 13.7 Sec (11.9-14.9); PT RATIO 1.1
[2018-04-11] MEDS ORDERED: PROPOFOL 0 ML (11:56)
[2018-04-11] MEDS ORDERED: MIDAZOLAM 1 MG/ML 2 ML INJ (11:57)
[2018-04-11] MEDS ORDERED: FENTAnyl 50 MCG/ML VIAL (11:57)
[2018-04-11] MEDS ORDERED: CEFAZOLIN 1 GM INJ (12:08)
[2018-04-11] MEDS: HEPARIN 1000 UNITS/ML 10 ML INJ (12:29)
[2018-04-11] MEDS: BUPIVACAINE 0.25% (MPF) 30 ML INJ (12:29)
[2018-04-11] MEDS: LIDOCAINE 1% (MPF) 30 ML INJ (12:29)
[2018-04-11] MEDS ORDERED: PROPOFOL 20 ML (13:09)
[2018-04-11 13:20] LABS: PARTIAL THROMBOPLASTIN TIME 40.9 Sec (23.0-35.0)
[2018-04-11] MEDS ORDERED: MEPERIDINE 25 MG INJ IV (14:00)
[2018-04-11] MEDS ORDERED: hydrALAzine 20 MG INJ IV (14:00)
[2018-04-11] MEDS ORDERED: HYDROmorphONE 1 MG/5 ML IV SYRINGE IV ×3 (14:00)
[2018-04-11] MEDS ORDERED: LABETALOL HCL 20MG INJ IV (14:00)
[2018-04-11] MEDS ORDERED: ONDANSETRON 4 MG INJ IV (14:00)
[2018-04-11] MEDS ORDERED: MIDAZOLAM 1 MG/ML 2 ML INJ IV (14:00)
[2018-04-11] MEDS ORDERED: EPHEDrine SULFATE 50 MG/5 ML SYG IV (14:00)
[2018-04-11] MEDS ORDERED: OXYCODONE/ACETAMINOPHEN (5/325) TAB PO (14:00)
[2018-04-11] MEDS ORDERED: METOCLOPRAMIDE 10 MG INJ IV (14:00)
[2018-04-11] MEDS ORDERED: DIPHENHYDRAMINE 50 MG INJ IV (14:00)
[2018-04-11] MEDS ORDERED: FENTAnyl 50 MCG/ML VIAL IV ×3 (14:00)
[2018-04-11] MEDS: OXYCODONE/ACETAMINOPHEN (5/325) TAB PO (15:22)
== END 2018-04-11 16:54 | disposition home or self-care (01) ==
LOC: SDS 09:08
DX: N18.6 End stage renal disease (principal); I12.0 Hypertensive chronic kidney disease with stage 5 chronic kidney disease or end stage renal disease; E11.9 Type 2 diabetes mellitus without complications
CPT/HCPCS: 36825; 71045; 80048; 82962; 85025; 85610; 85730; 93005

== ENCOUNTER 2018-06-29 20:08 | Inpatient (IN) | payer MEDICARE, BC ==
[2018-06-29 23:10] LABS: ADD MAN DIFF? NO
[2018-06-29 23:11] LABS: WHITE BLOOD COUNT 6.5 10^3/ul (4.8-10.8)
[2018-06-29 23:11] LABS: BASOPHIL # 0.1 10^3/ul (0.0-0.1); BASOPHILS % 1.4 % (0.0-2.0); EOSINOPHILS # 0.8 10^3/ul (0.0-0.5); EOSINOPHILS % 11.7 % (0.0-7.0); HEMATOCRIT 34.8 % (42.0-52.0); HEMOGLOBIN 10.9 g/dl (14.0-18.0); LYMPHOCYTES # 1.5 10^3/ul (0.8-2.9); LYMPHOCYTES % 22.7 % (15.0-51.0); MEAN CORPUSCULAR HEMOGLOBIN 29.5 pg (29.0-33.0); MEAN CORPUSCULAR HGB CONC 31.3 g/dl (32.0-37.0); MEAN CORPUSCULAR VOLUME 94.3 fl (82.0-101.0); MEAN PLATELET VOLUME 11.1 fl (7.4-10.4); MONOCYTE # 0.4 10^3/ul (0.3-0.9); MONOCYTES % 6.5 % (0.0-11.0); NEUTROPHIL # 3.7 10^3/ul (1.6-7.5); NEUTROPHILS % 57.4 % (39.0-77.0); PLATELET COUNT 134 10^3/UL (140-415); RED BLOOD COUNT 3.69 10^6/ul (4.70-6.10); RED CELL DISTRIBUTION WIDTH 14.9 % (11.5-14.5)
[2018-06-29 23:38] LABS: ALANINE AMINOTRANSFERASE 22 IU/L (13-69); ALBUMIN 4.2 g/dl (3.3-4.9); ALBUMIN/GLOBULIN RATIO 1.35; ALKALINE PHOSPHATASE 57 IU/L (42-121); ANION GAP 13 (5-13); ASPARTATE AMINO TRANSFERASE 17 IU/L (15-46); BILIRUBIN,INDIRECT 0.2 mg/dl (0-1.1); BILIRUBIN,TOTAL 0.2 mg/dl (0.2-1.3); BLOOD UREA NITROGEN 51 mg/dl (7-20); CALCIUM 9.8 mg/dl (8.4-10.2); CARBON DIOXIDE 30 mmol/L (21-31); CHLORIDE 96 mmol/L (97-110); CREATININE 7.73 mg/dl (0.61-1.24); Estimated GFR 7 mL/min (>60); GLUCOSE 117 mg/dl (70-220); POTASSIUM 4.4 mmol/L (3.5-5.1); SODIUM 139 mmol/L (135-144); TOTAL PROTEIN 7.3 g/dl (6.1-8.1)
[2018-06-29 23:49] LABS: B-TYPE NATRIURETIC PEPTIDE 30100 PG/ML (0-125); TROPONIN-I 0.066 ng/ml (0.000-0.120)
[2018-06-29 23:58] LABS: AADO2 Arterial 59.6 mmHg (7.0-24.0); Allen Test ACCEPTAB; Arterial Base Excess 2.7 mmol/L (-3.0-3); Arterial Blood Gas Oxygen Sat 95.1 mmHG (95.0-98.0); Arterial Fraction of Oxyhgb 94.1 % (93.0-99.0); Arterial MetHb 0.1 % (0.0-1.5); Blood Gas IEPAP 15/5; Blood Gas PS 10; MODE MASK - BIPAP; Site Right Radial
[2018-06-30] MEDS: LOSARTAN 25 MG TAB PO ×2 (00:10→09:00)
[2018-06-30] MEDS: HEPARIN 5,000 UNIT/1 ML VIAL SC ×3 (00:10→21:00)
[2018-06-30] MEDS ORDERED: ONDANSETRON 4 MG INJ IV (03:00)
[2018-06-30] MEDS ORDERED: PROMETHAZINE/DM (CUP) PO (03:00)
[2018-06-30] MEDS ORDERED: NACL 0.9% 3 ML SYG IV (03:00)
[2018-06-30] MEDS ORDERED: ACETAMINOPHEN 325 MG TAB PO (03:00)
[2018-06-30] MEDS ORDERED: ALBUTEROL/IPRATROPIUM (NEB) 3 ML AMP NEB (03:00)
[2018-06-30] MEDS ORDERED: SENNA TAB PO (03:00)
[2018-06-30 06:15] LABS: ADD MAN DIFF? NO
[2018-06-30 06:26] LABS: BASOPHIL # 0.1 10^3/ul (0.0-0.1); BASOPHILS % 1.8 % (0.0-2.0); EOSINOPHILS # 0.7 10^3/ul (0.0-0.5); EOSINOPHILS % 11.1 % (0.0-7.0); HEMATOCRIT 35.6 % (42.0-52.0); HEMOGLOBIN 10.9 g/dl (14.0-18.0); LYMPHOCYTES # 1.5 10^3/ul (0.8-2.9); LYMPHOCYTES % 23.5 % (15.0-51.0); MEAN CORPUSCULAR HEMOGLOBIN 29.1 pg (29.0-33.0); MEAN CORPUSCULAR HGB CONC 30.6 g/dl (32.0-37.0); MEAN CORPUSCULAR VOLUME 94.9 fl (82.0-101.0); MEAN PLATELET VOLUME 11.8 fl (7.4-10.4); MONOCYTE # 0.4 10^3/ul (0.3-0.9); MONOCYTES % 5.8 % (0.0-11.0); NEUTROPHIL # 3.7 10^3/ul (1.6-7.5); NEUTROPHILS % 57.6 % (39.0-77.0); PLATELET COUNT 143 10^3/UL (140-415); RED BLOOD COUNT 3.75 10^6/ul (4.70-6.10)
[2018-06-30 06:26] LABS: WHITE BLOOD COUNT 6.5 10^3/ul (4.8-10.8)
[2018-06-30 06:57] LABS: ALANINE AMINOTRANSFERASE 29 IU/L (13-69); ALBUMIN 4.2 g/dl (3.3-4.9); ALBUMIN/GLOBULIN RATIO 1.31; ALKALINE PHOSPHATASE 56 IU/L (42-121); ANION GAP 15 (5-13); ASPARTATE AMINO TRANSFERASE 18 IU/L (15-46); BILIRUBIN,INDIRECT 0.4 mg/dl (0-1.1); BILIRUBIN,TOTAL 0.4 mg/dl (0.2-1.3); BLOOD UREA NITROGEN 55 mg/dl (7-20); CALCIUM 9.8 mg/dl (8.4-10.2); CARBON DIOXIDE 30 mmol/L (21-31); CHLORIDE 96 mmol/L (97-110); CHOL/HDL RATIO 4.6 RATIO; CHOLESTEROL 83 mg/dl (100-200); CREATININE 8.14 mg/dl (0.61-1.24); Estimated GFR 7 mL/min (>60); GLUCOSE 134 mg/dl (70-220); HDL CHOLESTEROL 18 mg/dl (28-71); LDL CHOLESTEROL,CALCULATED 42 mg/dl; MAGNESIUM 1.7 mg/dl (1.7-2.5); POTASSIUM 4.8 mmol/L (3.5-5.1); SODIUM 141 mmol/L (135-144); TOTAL PROTEIN 7.4 g/dl (6.1-8.1); TRIGLYCERIDES 113 mg/dl (0-149)
[2018-06-30 08:04] LABS: HEMOGLOBIN A1C 6.7 % (0-5.9)
[2018-06-30] MEDS: ASPIRIN 81 MG TAB PO (08:32)
[2018-06-30] MEDS: CHOLECALCIFEROL 1,000 UNIT TAB PO (08:32)
[2018-06-30] MEDS: PANTOPRAZOLE (EC) 40 MG TAB PO (08:32)
[2018-06-30] MEDS: BUMETANIDE 1 MG INJ IV (17:31)
[2018-06-30 19:55] LABS: HEPATITIS B SURFACE ANTIGEN NEGATIVE (NEGATIVE)
[2018-06-30] MEDS: HEPARIN 1000 UNITS/ML 10 ML INJ CATHETER (23:59)
[2018-07-01] MEDS: GABAPENTIN 100 MG CAP PO ×2 (00:02→20:44)
[2018-07-01] MEDS: ATORVASTATIN 20 MG TAB PO ×2 (00:02→20:45)
[2018-07-01] MEDS: BUMETANIDE 1 MG INJ IV ×2 (05:58→17:50)
[2018-07-01] MEDS: PANTOPRAZOLE (EC) 40 MG TAB PO (08:40)
[2018-07-01] MEDS: CHOLECALCIFEROL 1,000 UNIT TAB PO (08:40)
[2018-07-01] MEDS: ASPIRIN 81 MG TAB PO (08:40)
[2018-07-01] MEDS: LOSARTAN 25 MG TAB PO ×2 (08:40→20:45)
[2018-07-01] MEDS: HEPARIN 5,000 UNIT/1 ML VIAL SC (08:52)
[2018-07-01 15:13] LABS: ADD MAN DIFF? NO
[2018-07-01 15:15] LABS: BASOPHIL # 0.1 10^3/ul (0.0-0.1); BASOPHILS % 1.6 % (0.0-2.0); EOSINOPHILS # 0.7 10^3/ul (0.0-0.5); EOSINOPHILS % 14.3 % (0.0-7.0); HEMATOCRIT 35.2 % (42.0-52.0); HEMOGLOBIN 10.6 g/dl (14.0-18.0); LYMPHOCYTES # 0.9 10^3/ul (0.8-2.9); LYMPHOCYTES % 18.3 % (15.0-51.0); MEAN CORPUSCULAR HEMOGLOBIN 29.4 pg (29.0-33.0); MEAN CORPUSCULAR HGB CONC 30.1 g/dl (32.0-37.0); MEAN CORPUSCULAR VOLUME 97.8 fl (82.0-101.0); MEAN PLATELET VOLUME 11.9 fl (7.4-10.4); MONOCYTE # 0.3 10^3/ul (0.3-0.9); MONOCYTES % 6.2 % (0.0-11.0); NEUTROPHILS % 59.4 % (39.0-77.0); PLATELET COUNT 119 10^3/UL (140-415); RED CELL DISTRIBUTION WIDTH 14.8 % (11.5-14.5)
[2018-07-01 15:49] LABS: ANION GAP 10 (5-13); BLOOD UREA NITROGEN 44 mg/dl (7-20); CALCIUM 8.9 mg/dl (8.4-10.2); CARBON DIOXIDE 27 mmol/L (21-31); CHLORIDE 104 mmol/L (97-110); CREATININE 7.42 mg/dl (0.61-1.24); Estimated GFR 8 mL/min (>60); GLUCOSE 148 mg/dl (70-220); MAGNESIUM 1.9 mg/dl (1.7-2.5); PHOSPHORUS 6.1 mg/dl (2.5-4.9); POTASSIUM 4.9 mmol/L (3.5-5.1); SODIUM 141 mmol/L (135-144)
[2018-07-01] MEDS: MUPIROCIN 2% 22 GM OINT TOP (20:44)
[2018-07-01] MEDS: APIXABAN 5 MG TABLET PO (20:45)
[2018-07-02] MEDS: BUMETANIDE 1 MG INJ IV ×2 (05:30→18:22)
[2018-07-02] MEDS: APIXABAN 5 MG TABLET PO ×2 (08:17→21:32)
[2018-07-02] MEDS: CHOLECALCIFEROL 1,000 UNIT TAB PO (08:17)
[2018-07-02] MEDS: PANTOPRAZOLE (EC) 40 MG TAB PO (08:17)
[2018-07-02] MEDS: LOSARTAN 25 MG TAB PO ×2 (08:18→22:06)
[2018-07-02] MEDS: MUPIROCIN 2% 22 GM OINT TOP ×2 (08:20→21:39)
[2018-07-02 09:48] LABS: ADD MAN DIFF? NO
[2018-07-02 09:51] LABS: BASOPHIL # 0.1 10^3/ul (0.0-0.1); EOSINOPHILS # 0.8 10^3/ul (0.0-0.5); EOSINOPHILS % 14.1 % (0.0-7.0); HEMATOCRIT 33.8 % (42.0-52.0); HEMOGLOBIN 10.1 g/dl (14.0-18.0); LYMPHOCYTES % 17.4 % (15.0-51.0); MEAN CORPUSCULAR HGB CONC 29.9 g/dl (32.0-37.0); MEAN CORPUSCULAR VOLUME 97.1 fl (82.0-101.0); MEAN PLATELET VOLUME 11.1 fl (7.4-10.4); MONOCYTE # 0.3 10^3/ul (0.3-0.9); MONOCYTES % 4.9 % (0.0-11.0); NEUTROPHIL # 3.7 10^3/ul (1.6-7.5); NEUTROPHILS % 62.3 % (39.0-77.0); PLATELET COUNT 116 10^3/UL (140-415); RED BLOOD COUNT 3.48 10^6/ul (4.70-6.10)
[2018-07-02 09:51] LABS: WHITE BLOOD COUNT 5.9 10^3/ul (4.8-10.8)
[2018-07-02 10:24] LABS: PHOSPHORUS 4.7 mg/dl (2.5-4.9)
[2018-07-02 10:24] LABS: MAGNESIUM 1.7 mg/dl (1.7-2.5)
[2018-07-02 10:25] LABS: ANION GAP 15 (5-13); BLOOD UREA NITROGEN 38 mg/dl (7-20); CALCIUM 8.9 mg/dl (8.4-10.2); CARBON DIOXIDE 26 mmol/L (21-31); CHLORIDE 99 mmol/L (97-110); CREATININE 7.04 mg/dl (0.61-1.24); Estimated GFR 8 mL/min (>60); GLUCOSE 255 mg/dl (70-220); POTASSIUM 4.6 mmol/L (3.5-5.1); SODIUM 140 mmol/L (135-144)
[2018-07-02] MEDS ORDERED: GLUCAGON 1 MG INJ IM (20:30)
[2018-07-02] MEDS ORDERED: GLUCOSE GEL 15 GRAM TUBE PO ×2 (20:30)
[2018-07-02] MEDS ORDERED: DEXTROSE 50% 50 ML SYRINGE IV ×2 (20:30)
[2018-07-02] MEDS ORDERED: GLUCOSE GEL 15 GRAM TUBE BUCCAL (20:30)
[2018-07-02] MEDS: INSULIN ASPART [NOVOLOG] 3 ML PEN SC (21:00)
[2018-07-02] MEDS: GABAPENTIN 100 MG CAP PO (21:32)
[2018-07-02] MEDS: ATORVASTATIN 20 MG TAB PO (21:32)
[2018-07-02] MEDS: INSULIN GLARGINE [LANTus] (100 UNITS/ML) SYG SC (22:22)
[2018-07-03] MEDS: MAGNESIUM SULFATE 2 GM/50 ML 50 ML IVPB (01:17)
[2018-07-03] MEDS: ACCU-CHEK XX (01:56)
[2018-07-03] MEDS: BUMETANIDE 1 MG INJ IV ×2 (06:18→17:38)
[2018-07-03] MEDS: LOSARTAN 25 MG TAB PO ×2 (07:43→21:00)
[2018-07-03] MEDS: PANTOPRAZOLE (EC) 40 MG TAB PO (07:43)
[2018-07-03] MEDS: CHOLECALCIFEROL 1,000 UNIT TAB PO (07:43)
[2018-07-03] MEDS: APIXABAN 5 MG TABLET PO ×2 (07:44→21:33)
[2018-07-03] MEDS: MUPIROCIN 2% 22 GM OINT TOP ×2 (07:44→21:00)
[2018-07-03] MEDS: INSULIN ASPART [NOVOLOG] 3 ML PEN SC ×4 (07:45→21:00)
[2018-07-03] MEDS: ALBUMIN HUMAN 25% 100 ML IV (17:01)
[2018-07-03] MEDS: HEPARIN 1000 UNITS/ML 10 ML INJ CATHETER (17:23)
[2018-07-03] MEDS: INSULIN GLARGINE [LANTus] (100 UNITS/ML) SYG SC (21:00)
[2018-07-03] MEDS: GABAPENTIN 100 MG CAP PO (21:33)
[2018-07-03] MEDS: ATORVASTATIN 20 MG TAB PO (21:33)
== END 2018-07-03 21:00 | DRG 291 ==
LOC: TEL 06-30 03:27 → E/R 20:08 → TEL 06-30 01:02
PROC: 5A09357 Assistance with Respiratory Ventilation, Less than 24 Consecutive Hours, Continuous Positive Airway Pressure (ICD-10-PCS; principal; 2018-06-29)
PROC: 4A033R1 Measurement of Arterial Saturation, Peripheral, Percutaneous Approach (ICD-10-PCS; 2018-06-29)
PROC: 5A1D70Z Performance of Urinary Filtration, Intermittent, Less than 6 Hours Per Day (ICD-10-PCS; 2018-07-03)
DX: I13.2 Hypertensive heart and chronic kidney disease with heart failure and with stage 5 chronic kidney disease, or end stage renal disease (principal); N18.6 End stage renal disease; I50.23 Acute on chronic systolic (congestive) heart failure; J96.02 Acute respiratory failure with hypercapnia; J96.01 Acute respiratory failure with hypoxia; Z68.41 Body mass index [BMI] 40.0-44.9, adult; E11.22 Type 2 diabetes mellitus with diabetic chronic kidney disease; Z86.74 Personal history of sudden cardiac arrest; E78.5 Hyperlipidemia, unspecified; E66.01 Morbid (severe) obesity due to excess calories; I25.5 Ischemic cardiomyopathy; Z91.15 Patient's noncompliance with renal dialysis; E11.40 Type 2 diabetes mellitus with diabetic neuropathy, unspecified; E11.21 Type 2 diabetes mellitus with diabetic nephropathy; I27.20 Pulmonary hypertension, unspecified; I25.10 Atherosclerotic heart disease of native coronary artery without angina pectoris; G47.33 Obstructive sleep apnea (adult) (pediatric); F17.200 Nicotine dependence, unspecified, uncomplicated; D64.9 Anemia, unspecified; I48.0 Paroxysmal atrial fibrillation; I42.9 Cardiomyopathy, unspecified; I08.0 Rheumatic disorders of both mitral and aortic valves; Z99.2 Dependence on renal dialysis; Z79.82 Long term (current) use of aspirin; Z95.1 Presence of aortocoronary bypass graft; Z86.73 Personal history of transient ischemic attack (TIA), and cerebral infarction without residual deficits
CPT/HCPCS: 36415; 36600; 71045; 80048; 80053; 80061; 82803; 82962; 83036; 83735; 83880; 84100; 84484; 85025; 87081; 87340; 90935; 93005; 93306; 94660; 99285-25

== ENCOUNTER 2018-09-29 22:34 | Inpatient (IN) | payer MEDICARE, BC ==
[2018-09-29 23:00] LABS: ADD MAN DIFF? NO
[2018-09-29 23:05] LABS: WHITE BLOOD COUNT 8.1 10^3/ul (4.8-10.8)
[2018-09-29 23:05] LABS: BASOPHIL # 0.1 10^3/ul (0.0-0.1); BASOPHILS % 1.1 % (0.0-2.0); EOSINOPHILS # 0.8 10^3/ul (0.0-0.5); EOSINOPHILS % 9.8 % (0.0-7.0); HEMATOCRIT 34.2 % (42.0-52.0); HEMOGLOBIN 10.4 g/dl (14.0-18.0); LYMPHOCYTES # 1.3 10^3/ul (0.8-2.9); LYMPHOCYTES % 16.5 % (15.0-51.0); MEAN CORPUSCULAR HEMOGLOBIN 30.6 pg (29.0-33.0); MEAN CORPUSCULAR HGB CONC 30.4 g/dl (32.0-37.0); MEAN CORPUSCULAR VOLUME 100.6 fl (82.0-101.0); MEAN PLATELET VOLUME 10.9 fl (7.4-10.4); MONOCYTE # 0.4 10^3/ul (0.3-0.9); NEUTROPHIL # 5.5 10^3/ul (1.6-7.5); NEUTROPHILS % 67.2 % (39.0-77.0); PLATELET COUNT 149 10^3/UL (140-415); RED CELL DISTRIBUTION WIDTH 15.9 % (11.5-14.5)
[2018-09-29 23:23] LABS: ALANINE AMINOTRANSFERASE 20 IU/L (13-69); ALBUMIN 4.1 g/dl (3.3-4.9); ALKALINE PHOSPHATASE 58 IU/L (42-121); ANION GAP 16 (5-13); ASPARTATE AMINO TRANSFERASE 12 IU/L (15-46); BILIRUBIN,INDIRECT 0.3 mg/dl (0-1.1); BILIRUBIN,TOTAL 0.3 mg/dl (0.2-1.3); BLOOD UREA NITROGEN 70 mg/dl (7-20); CALCIUM 9.6 mg/dl (8.4-10.2); CARBON DIOXIDE 25 mmol/L (21-31); CHLORIDE 98 mmol/L (97-110); CREATININE 9.04 mg/dl (0.61-1.24); Estimated GFR 6 mL/min (>60); GLUCOSE 182 mg/dl (70-220); LIPASE 758 U/L (23-300); POTASSIUM 5.6 mmol/L (3.5-5.1); SODIUM 139 mmol/L (135-144); TOTAL PROTEIN 7.4 g/dl (6.1-8.1)
[2018-09-29 23:24] LABS: ALBUMIN/GLOBULIN RATIO 1.24
[2018-09-29 23:35] LABS: TROPONIN-I 0.082 ng/ml (0.000-0.120)
[2018-09-30 00:23] LABS: B-TYPE NATRIURETIC PEPTIDE 39600 PG/ML (0-125)
[2018-09-30 00:33] LABS: AADO2 Arterial 177.9 mmHg (7.0-24.0); Arterial COHb 2.7 % (0.0-3.0); Arterial Fraction of Oxyhgb 94.3 % (93.0-99.0); Arterial HCO3 24.4 mmol/L (22.0-26.0); Arterial MetHb 0.1 % (0.0-1.5); Arterial pCO2 61.6 mmhg (35-45); Blood Gas PS 10; MODE MASK - BIPAP; Site LB
[2018-09-30] MEDS ORDERED: ACETAMINOPHEN 325 MG TAB PO (01:00)
[2018-09-30] MEDS ORDERED: ONDANSETRON 4 MG INJ IV ×2 (01:00→04:30)
[2018-09-30 02:37] LABS: AADO2 Arterial 96.3 mmHg (7.0-24.0); Allen Test ACCEPTAB; Arterial Base Excess -2.7 mmol/L (-3.0-3); Arterial Blood Gas Oxygen Sat 92.1 mmHG (95.0-98.0); Arterial COHb 2.5 % (0.0-3.0); Arterial Fraction of Oxyhgb 89.8 % (93.0-99.0); Arterial HCO3 26.3 mmol/L (22.0-26.0); Arterial MetHb 0 % (0.0-1.5); Arterial pCO2 68.3 mmhg (35-45); Blood Gas IEPAP 20/8; MODE MASK - BIPAP; Site Left Radial
[2018-09-30] MEDS ORDERED: ALBUTEROL/IPRATROPIUM (NEB) 3 ML AMP HHN (04:30)
[2018-09-30] MEDS ORDERED: NACL 0.9% 3 ML SYG IV (04:30)
[2018-09-30] MEDS ORDERED: NITROGLYCERIN (SL) 0.4 MG TAB SL (04:30)
[2018-09-30] MEDS ORDERED: SENNA TAB PO (04:30)
[2018-09-30] MEDS ORDERED: ALBUTEROL/IPRATROPIUM (NEB) 3 ML AMP NEB (04:30)
[2018-09-30 04:34] LABS: AADO2 Arterial 221.3 mmHg (7.0-24.0); Allen Test ACCEPTAB; Arterial Base Excess -2.3 mmol/L (-3.0-3); Arterial Blood Gas Oxygen Sat 88.3 mmHG (95.0-98.0); Arterial COHb 2.1 % (0.0-3.0); Arterial Fraction of Oxyhgb 86.4 % (93.0-99.0); Arterial HCO3 26.4 mmol/L (22.0-26.0); Arterial MetHb 0 % (0.0-1.5); Arterial pCO2 65.7 mmhg (35-45); Blood Gas IEPAP 22/8; MODE MASK - BIPAP; Site Right Radial
[2018-09-30 04:48] LABS: ADD MAN DIFF? NO
[2018-09-30 04:50] LABS: BASOPHIL # 0.1 10^3/ul (0.0-0.1); BASOPHILS % 1.1 % (0.0-2.0); EOSINOPHILS # 0.7 10^3/ul (0.0-0.5); EOSINOPHILS % 9.8 % (0.0-7.0); HEMATOCRIT 35.7 % (42.0-52.0); HEMOGLOBIN 10.7 g/dl (14.0-18.0); LYMPHOCYTES # 1.2 10^3/ul (0.8-2.9); LYMPHOCYTES % 17.1 % (15.0-51.0); MEAN CORPUSCULAR HEMOGLOBIN 30.7 pg (29.0-33.0); MEAN CORPUSCULAR VOLUME 102.6 fl (82.0-101.0); MEAN PLATELET VOLUME 11.8 fl (7.4-10.4); MONOCYTE # 0.4 10^3/ul (0.3-0.9); MONOCYTES % 5.4 % (0.0-11.0); NEUTROPHIL # 4.8 10^3/ul (1.6-7.5); NEUTROPHILS % 66.2 % (39.0-77.0); PLATELET COUNT 141 10^3/UL (140-415); RED BLOOD COUNT 3.48 10^6/ul (4.70-6.10); RED CELL DISTRIBUTION WIDTH 16.3 % (11.5-14.5)
[2018-09-30 04:50] LABS: WHITE BLOOD COUNT 7.3 10^3/ul (4.8-10.8)
[2018-09-30 05:07] LABS: CREATINE KINASE 66 IU/L (23-200)
[2018-09-30 05:13] LABS: ALANINE AMINOTRANSFERASE 18 IU/L (13-69); ALBUMIN/GLOBULIN RATIO 1.21; ALKALINE PHOSPHATASE 53 IU/L (42-121); ANION GAP 13 (5-13); ASPARTATE AMINO TRANSFERASE 12 IU/L (15-46); BILIRUBIN,INDIRECT 0.3 mg/dl (0-1.1); BILIRUBIN,TOTAL 0.3 mg/dl (0.2-1.3); BLOOD UREA NITROGEN 75 mg/dl (7-20); CALCIUM 9.8 mg/dl (8.4-10.2); CARBON DIOXIDE 28 mmol/L (21-31); CHLORIDE 97 mmol/L (97-110); CREATININE 9.16 mg/dl (0.61-1.24); Estimated GFR 6 mL/min (>60); GLUCOSE 122 mg/dl (70-220); MAGNESIUM 2.4 mg/dl (1.7-2.5); POTASSIUM 5.8 mmol/L (3.5-5.1); SODIUM 138 mmol/L (135-144); TOTAL PROTEIN 7.3 g/dl (6.1-8.1)
[2018-09-30 05:19] LABS: CK INDEX 4.8; TROPONIN-I 0.091 ng/ml (0.000-0.120)
[2018-09-30] MEDS ORDERED: PANTOPRAZOLE (EC) 40 MG TAB PO (06:00)
[2018-09-30] MEDS: PANTOPRAZOLE (EC) 40 MG TAB PO (06:16)
[2018-09-30] MEDS: LEVOFLOXACIN 750MG/D5W (PMX) 150 ML IVPB (06:17)
[2018-09-30] MEDS: FUROSEMIDE 40 MG INJ IV (06:17)
[2018-09-30] MEDS: INSULIN ASPART [NOVOLOG] 3 ML PEN SC ×4 (07:27→20:37)
[2018-09-30] MEDS: ALBUTEROL/IPRATROPIUM (NEB) 3 ML AMP NEB ×3 (07:33→19:26)
[2018-09-30] MEDS: APIXABAN 5 MG TABLET PO ×2 (08:04→20:08)
[2018-09-30] MEDS: CHOLECALCIFEROL 1,000 UNIT TAB PO (08:04)
[2018-09-30] MEDS: LOSARTAN 25 MG TAB PO ×2 (08:05→20:08)
[2018-09-30 12:26] LABS: HEPATITIS B SURFACE ANTIGEN NEGATIVE (NEGATIVE)
[2018-09-30 12:39] LABS: CREATINE KINASE 59 IU/L (23-200)
[2018-09-30 12:44] LABS: HEPATITIS B SURFACE ANTIBODY POSITIVE (NEGATIVE)
[2018-09-30 12:51] LABS: CK INDEX 4.8; TROPONIN-I 0.057 ng/ml (0.000-0.120)
[2018-09-30 12:52] LABS: CK-MB 2.84 ng/ml (0.0-2.4)
[2018-09-30] MEDS: HEPARIN 1000 UNITS/ML 10 ML INJ CATHETER (16:50)
[2018-09-30] MEDS: ATORVASTATIN 20 MG TAB PO (20:07)
[2018-09-30] MEDS: INSULIN GLARGINE [LANTus] (100 UNITS/ML) SYG SC (20:37)
[2018-09-30] MEDS ORDERED: INSULIN GLARGINE 14 UNIT SC (21:00)
[2018-09-30] MEDS ORDERED: GABAPENTIN 100 MG CAP PO (21:00)
[2018-10-01] MEDS: ACCU-CHEK XX (01:55)
[2018-10-01] MEDS: ALBUTEROL/IPRATROPIUM (NEB) 3 ML AMP NEB ×4 (02:25→19:54)
[2018-10-01 05:48] LABS: ADD MAN DIFF? NO
[2018-10-01 05:53] LABS: BASOPHIL # 0.1 10^3/ul (0.0-0.1); BASOPHILS % 0.7 % (0.0-2.0); EOSINOPHILS # 0.3 10^3/ul (0.0-0.5); EOSINOPHILS % 3.4 % (0.0-7.0); HEMOGLOBIN 9.1 g/dl (14.0-18.0); LYMPHOCYTES # 1.2 10^3/ul (0.8-2.9); LYMPHOCYTES % 14.5 % (15.0-51.0); MEAN CORPUSCULAR HGB CONC 30.3 g/dl (32.0-37.0); MEAN PLATELET VOLUME 11.8 fl (7.4-10.4); MONOCYTE # 0.5 10^3/ul (0.3-0.9); MONOCYTES % 5.6 % (0.0-11.0); NEUTROPHIL # 6.3 10^3/ul (1.6-7.5); NEUTROPHILS % 75.6 % (39.0-77.0); PLATELET COUNT 139 10^3/UL (140-415); RED BLOOD COUNT 2.94 10^6/ul (4.70-6.10)
[2018-10-01 05:53] LABS: WHITE BLOOD COUNT 8.3 10^3/ul (4.8-10.8)
[2018-10-01 06:26] LABS: ANION GAP 12 (5-13); BLOOD UREA NITROGEN 57 mg/dl (7-20); CALCIUM 9.1 mg/dl (8.4-10.2); CARBON DIOXIDE 27 mmol/L (21-31); CHLORIDE 100 mmol/L (97-110); CREATININE 7.78 mg/dl (0.61-1.24); Estimated GFR 7 mL/min (>60); GLUCOSE 107 mg/dl (70-220); MAGNESIUM 2.2 mg/dl (1.7-2.5); PHOSPHORUS 5.3 mg/dl (2.5-4.9); POTASSIUM 5.3 mmol/L (3.5-5.1); SODIUM 139 mmol/L (135-144)
[2018-10-01] MEDS: PANTOPRAZOLE (EC) 40 MG TAB PO (07:00)
[2018-10-01 07:26] LABS: Allen Test ACCEPTAB; Arterial Blood Gas Oxygen Sat 93.6 mmHG (95.0-98.0); Arterial COHb 0.9 % (0.0-3.0); Arterial Fraction of Oxyhgb 92.8 % (93.0-99.0); Arterial HCO3 26.7 mmol/L (22.0-26.0); Arterial MetHb 0 % (0.0-1.5); Arterial pCO2 47.6 mmhg (35-45); Blood Gas IEPAP 18/5; Blood Gas PS 13; MODE MASK - BIPAP; Site Left Radial
[2018-10-01] MEDS: INSULIN ASPART [NOVOLOG] 3 ML PEN SC ×4 (08:00→21:00)
[2018-10-01] MEDS: CHOLECALCIFEROL 1,000 UNIT TAB PO (08:40)
[2018-10-01] MEDS: APIXABAN 5 MG TABLET PO ×2 (08:41→22:05)
[2018-10-01] MEDS: FUROSEMIDE 40 MG INJ IV (08:42)
[2018-10-01] MEDS: LOSARTAN 25 MG TAB PO ×2 (08:42→22:04)
[2018-10-01] MEDS: INSULIN GLARGINE [LANTus] (100 UNITS/ML) SYG SC (21:00)
[2018-10-01] MEDS: ATORVASTATIN 20 MG TAB PO (22:05)
[2018-10-02] MEDS ORDERED: LEVOFLOXACIN 500MG/D5W (PMX) 100 ML IVPB (06:30)
== END 2018-10-01 21:52 | DRG 291 ==
LOC: E/R 22:34 → 6WM 09-30 00:54
DX: I13.2 Hypertensive heart and chronic kidney disease with heart failure and with stage 5 chronic kidney disease, or end stage renal disease (principal); I50.21 Acute systolic (congestive) heart failure; N18.6 End stage renal disease; J96.92 Respiratory failure, unspecified with hypercapnia; J96.91 Respiratory failure, unspecified with hypoxia; Z68.41 Body mass index [BMI] 40.0-44.9, adult; E11.22 Type 2 diabetes mellitus with diabetic chronic kidney disease; Z99.2 Dependence on renal dialysis; Z79.4 Long term (current) use of insulin; J44.9 Chronic obstructive pulmonary disease, unspecified; I25.10 Atherosclerotic heart disease of native coronary artery without angina pectoris; Z95.1 Presence of aortocoronary bypass graft; I48.2 Chronic atrial fibrillation; I25.5 Ischemic cardiomyopathy; E66.01 Morbid (severe) obesity due to excess calories; E87.5 Hyperkalemia; E78.5 Hyperlipidemia, unspecified; D63.8 Anemia in other chronic diseases classified elsewhere; G47.30 Sleep apnea, unspecified; Z79.01 Long term (current) use of anticoagulants; Z86.73 Personal history of transient ischemic attack (TIA), and cerebral infarction without residual deficits
CPT/HCPCS: 36415; 36600; 71045; 80048; 80053; 82550; 82553; 82803; 82962; 83690; 83735; 83880; 84100; 84484; 85025; 86706; 87340; 90935; 93005; 94640; 94660; 94664; 99285-25

== ENCOUNTER 2018-11-03 06:20 | Inpatient (IN) | payer MEDICARE, BC ==
[2018-11-03 06:58] LABS: ADD MAN DIFF? NO
[2018-11-03 07:04] LABS: WHITE BLOOD COUNT 7.6 10^3/ul (4.8-10.8)
[2018-11-03 07:04] LABS: BASOPHIL # 0.1 10^3/ul (0.0-0.1); BASOPHILS % 0.9 % (0.0-2.0); EOSINOPHILS # 0.5 10^3/ul (0.0-0.5); EOSINOPHILS % 6.4 % (0.0-7.0); HEMOGLOBIN 10.6 g/dl (14.0-18.0); LYMPHOCYTES # 0.9 10^3/ul (0.8-2.9); LYMPHOCYTES % 11.5 % (15.0-51.0); MEAN CORPUSCULAR HEMOGLOBIN 31.8 pg (29.0-33.0); MEAN CORPUSCULAR HGB CONC 30.3 g/dl (32.0-37.0); MEAN CORPUSCULAR VOLUME 105.1 fl (82.0-101.0); MEAN PLATELET VOLUME 12.7 fl (7.4-10.4); MONOCYTE # 0.3 10^3/ul (0.3-0.9); MONOCYTES % 4.5 % (0.0-11.0); NEUTROPHIL # 5.8 10^3/ul (1.6-7.5); NEUTROPHILS % 76.4 % (39.0-77.0); PLATELET COUNT 140 10^3/UL (140-415); RED BLOOD COUNT 3.33 10^6/ul (4.70-6.10); RED CELL DISTRIBUTION WIDTH 15.6 % (11.5-14.5)
[2018-11-03 07:25] LABS: ANION GAP 15 (5-13); BLOOD UREA NITROGEN 60 mg/dl (7-20); CALCIUM 9.2 mg/dl (8.4-10.2); CARBON DIOXIDE 25 mmol/L (21-31); CHLORIDE 98 mmol/L (97-110); CREATININE 8.23 mg/dl (0.61-1.24); Estimated GFR 7 mL/min (>60); GLUCOSE 149 mg/dl (70-220); POTASSIUM 5.9 mmol/L (3.5-5.1); SODIUM 138 mmol/L (135-144)
[2018-11-03 07:26] LABS: INR 1.19; PROTIME 15.2 Sec (11.9-14.9); PT RATIO 1.2
[2018-11-03 07:28] LABS: PARTIAL THROMBOPLASTIN TIME 47.1 Sec (23.0-35.0)
[2018-11-03 07:36] LABS: TROPONIN-I 0.078 ng/ml (0.000-0.120)
[2018-11-03] MEDS ORDERED: ONDANSETRON 4 MG INJ IV ×2 (08:30→11:30)
[2018-11-03] MEDS ORDERED: ACETAMINOPHEN 325 MG TAB PO ×2 (08:30→11:30)
[2018-11-03 08:41] LABS: B-TYPE NATRIURETIC PEPTIDE 30200 PG/ML (0-125)
[2018-11-03 10:37] LABS: AADO2 Arterial 33.3 mmHg (7.0-24.0); Allen Test ACCEPTAB; Arterial Base Excess -3.4 mmol/L (-3.0-3); Arterial Blood Gas Oxygen Sat 92.8 mmHG (95.0-98.0); Arterial COHb 1.3 % (0.0-3.0); Arterial Fraction of Oxyhgb 91.4 % (93.0-99.0); Arterial MetHb 0.2 % (0.0-1.5); Arterial pCO2 99.6 mmhg (35-45); MODE NASAL CANNULA; Site Right Radial
[2018-11-03] MEDS: METHYLPREDNISOLONE 125 MG INJ IV (10:39)
[2018-11-03] MEDS: IPRATROPIUM (NEB) 0.5 MG/2.5 ML AMP INH (10:47)
[2018-11-03] MEDS: ALBUTEROL 0.5% (NEB) 2.5 MG/0.5 ML AMP INH (10:47)
[2018-11-03] MEDS: MAGNESIUM SULFATE 2 GM/50 ML 50 ML IVPB (11:00)
[2018-11-03] MEDS ORDERED: NACL 0.9% 3 ML SYG IV (11:30)
[2018-11-03 12:20] LABS: HEPATITIS B SURFACE ANTIGEN NEGATIVE (NEGATIVE)
[2018-11-03] MEDS: ALLOPURINOL 300 MG TAB PO (12:30)
[2018-11-03] MEDS ORDERED: ALBUTEROL/IPRATROPIUM (NEB) 3 ML AMP HHN (12:30)
[2018-11-03] MEDS ORDERED: LOSARTAN 25 MG TAB PO (13:00)
[2018-11-03 13:03] LABS: AADO2 Arterial 72.2 mmHg (7.0-24.0); Allen Test ACCEPTAB; Arterial Base Excess -4.9 mmol/L (-3.0-3); Arterial Blood Gas Oxygen Sat 86.3 mmHG (95.0-98.0); Arterial COHb 0.9 % (0.0-3.0); Arterial Fraction of Oxyhgb 85.3 % (93.0-99.0); Arterial HCO3 25.1 mmol/L (22.0-26.0); Arterial MetHb 0.3 % (0.0-1.5); Blood Gas IEPAP 15/5; Blood Gas PS 10; MODE MASK - BIPAP; Site Right Radial
[2018-11-03] MEDS: ALBUTEROL/IPRATROPIUM (NEB) 3 ML AMP HHN (13:21)
[2018-11-03 13:26] LABS: HEMOGLOBIN A1C 6.5 % (0-5.9)
[2018-11-03 13:28] LABS: CHOLESTEROL 99 mg/dl (100-200)
[2018-11-03 13:28] LABS: CHOL/HDL RATIO 3.9 RATIO; HDL CHOLESTEROL 25 mg/dl (28-71); LDL CHOLESTEROL,CALCULATED 55 mg/dl; TRIGLYCERIDES 95 mg/dl (0-149)
[2018-11-03] MEDS ORDERED: LEVALBUTEROL (NEB) 1.25 MG/0.5 ML AMP HHN (14:00)
[2018-11-03 14:15] LABS: CREATINE KINASE 79 IU/L (23-200)
[2018-11-03 14:25] LABS: CK INDEX 2.9; CK-MB 2.32 ng/ml (0.0-2.4)
[2018-11-03] MEDS: ALBUMIN HUMAN 25% 100 ML IV (16:49)
[2018-11-03] MEDS: ALTEPLASE (CATHFLO) 2 MG INJ CATHETER (16:49)
[2018-11-03] MEDS: IPRATROPIUM (NEB) 0.5 MG/2.5 ML AMP HHN ×2 (17:00→20:21)
[2018-11-03] MEDS: LEVALBUTEROL (NEB) 1.25 MG/0.5 ML AMP HHN ×2 (17:00→20:21)
[2018-11-03] MEDS: INSULIN ASPART [NOVOLOG] 3 ML PEN SC ×3 (17:06→20:53)
[2018-11-03 18:01] LABS: CREATINE KINASE 59 IU/L (23-200)
[2018-11-03 18:14] LABS: CK INDEX 3.5; CK-MB 2.05 ng/ml (0.0-2.4)
[2018-11-03] MEDS: INSULIN GLARGINE [LANTus] (100 UNITS/ML) SYG SC (20:53)
[2018-11-03] MEDS: FAMOTIDINE 20 MG INJ IV (20:59)
[2018-11-03] MEDS: APIXABAN 5 MG TABLET PO (21:00)
[2018-11-03] MEDS: ATORVASTATIN 20 MG TAB PO (21:00)
[2018-11-03 21:04] LABS: AADO2 Arterial 182.9 mmHg (7.0-24.0); Allen Test ACCEPTAB; Arterial Base Excess -2.1 mmol/L (-3.0-3); Arterial Blood Gas Oxygen Sat 71.1 mmHG (95.0-98.0); Arterial COHb 0.7 % (0.0-3.0); Arterial Fraction of Oxyhgb 70.4 % (93.0-99.0); Arterial HCO3 25.5 mmol/L (22.0-26.0); Arterial MetHb 0.3 % (0.0-1.5); Arterial pCO2 57.4 mmhg (35-45); Blood Gas IEPAP 18/8; MODE MASK - BIPAP; Site Right Brachial
[2018-11-04] MEDS: IPRATROPIUM (NEB) 0.5 MG/2.5 ML AMP HHN ×6 (01:08→20:28)
[2018-11-04] MEDS: LEVALBUTEROL (NEB) 1.25 MG/0.5 ML AMP HHN ×6 (01:08→20:27)
[2018-11-04] MEDS: ACCU-CHEK XX (02:00)
[2018-11-04 05:47] LABS: ADD MAN DIFF? NO
[2018-11-04 05:51] LABS: ABNORMAL IP MESSAGE 1; BASOPHILS % 0.2 % (0.0-2.0); HEMATOCRIT 32.6 % (42.0-52.0); HEMOGLOBIN 9.9 g/dl (14.0-18.0); LYMPHOCYTES # 0.5 10^3/ul (0.8-2.9); LYMPHOCYTES % 9.3 % (15.0-51.0); MEAN CORPUSCULAR HEMOGLOBIN 31.3 pg (29.0-33.0); MEAN CORPUSCULAR HGB CONC 30.4 g/dl (32.0-37.0); MEAN CORPUSCULAR VOLUME 103.2 fl (82.0-101.0); MEAN PLATELET VOLUME 11.7 fl (7.4-10.4); MONOCYTE # 0.1 10^3/ul (0.3-0.9); MONOCYTES % 2.5 % (0.0-11.0); NEUTROPHIL # 4.5 10^3/ul (1.6-7.5); NEUTROPHILS % 87.4 % (39.0-77.0); PLATELET COUNT 117 10^3/UL (140-415); POSITIVE DIFF @See below; RED BLOOD COUNT 3.16 10^6/ul (4.70-6.10); RED CELL DISTRIBUTION WIDTH 14.8 % (11.5-14.5)
[2018-11-04 05:51] LABS: WHITE BLOOD COUNT 5.2 10^3/ul (4.8-10.8)
[2018-11-04 06:06] LABS: AADO2 Arterial 191.6 mmHg (7.0-24.0); Allen Test ACCEPTAB; Arterial Base Excess -3.3 mmol/L (-3.0-3); Arterial Blood Gas Oxygen Sat 97.5 mmHG (95.0-98.0); Arterial COHb 0.4 % (0.0-3.0); Arterial Fraction of Oxyhgb 96.9 % (93.0-99.0); Arterial HCO3 23.6 mmol/L (22.0-26.0); Arterial MetHb 0.2 % (0.0-1.5); Arterial pCO2 50.8 mmhg (35-45); Blood Gas IEPAP 18/8; Blood Gas PS 10; MODE MASK - BIPAP; Site Right Radial
[2018-11-04 06:42] LABS: ALANINE AMINOTRANSFERASE 18 IU/L (13-69); ALBUMIN 3.8 g/dl (3.3-4.9); ALBUMIN/GLOBULIN RATIO 1.22; ALKALINE PHOSPHATASE 50 IU/L (42-121); ANION GAP 13 (5-13); ASPARTATE AMINO TRANSFERASE 10 IU/L (15-46); BILIRUBIN,INDIRECT 0.5 mg/dl (0-1.1); BILIRUBIN,TOTAL 0.5 mg/dl (0.2-1.3); BLOOD UREA NITROGEN 56 mg/dl (7-20); CALCIUM 9.1 mg/dl (8.4-10.2); CARBON DIOXIDE 28 mmol/L (21-31); CHLORIDE 96 mmol/L (97-110); CREATININE 6.87 mg/dl (0.61-1.24); Estimated GFR 8 mL/min (>60); GLUCOSE 160 mg/dl (70-220); MAGNESIUM 2.2 mg/dl (1.7-2.5); PHOSPHORUS 6.5 mg/dl (2.5-4.9); SODIUM 137 mmol/L (135-144)
[2018-11-04 07:12] LABS: TOTAL PROTEIN 6.9 g/dl (6.1-8.1)
[2018-11-04 07:13] LABS: POTASSIUM 5.6 mmol/L (3.5-5.1)
[2018-11-04] MEDS ORDERED: INSULIN ASPART [NOVOLOG] 3 ML PEN SC (08:30)
[2018-11-04] MEDS ORDERED: GLUCAGON 1 MG INJ IM (08:30)
[2018-11-04] MEDS ORDERED: GLUCOSE GEL 15 GRAM TUBE BUCCAL (08:30)
[2018-11-04] MEDS ORDERED: GLUCOSE GEL 15 GRAM TUBE PO ×2 (08:30)
[2018-11-04] MEDS ORDERED: DEXTROSE 50% 50 ML SYRINGE IV ×2 (08:30)
[2018-11-04] MEDS: FAMOTIDINE 20 MG INJ IV ×2 (09:17→20:10)
[2018-11-04] MEDS: FOLIC ACID 1 MG TAB PO (09:17)
[2018-11-04] MEDS: METOPROLOL (XL) 25 MG TAB PO (09:17)
[2018-11-04] MEDS: APIXABAN 5 MG TABLET PO ×2 (09:17→20:10)
[2018-11-04] MEDS: INSULIN ASPART [NOVOLOG] 3 ML PEN SC ×4 (09:25→20:24)
[2018-11-04] MEDS: ALLOPURINOL 300 MG TAB PO (10:57)
[2018-11-04] MEDS: HYDROCODONE/APAP (5/325) TAB PO (10:57)
[2018-11-04] MEDS ORDERED: HEPARIN 1000 UNITS/ML 10 ML INJ (15:08)
[2018-11-04] MEDS: HEPARIN 1000 UNITS/ML 10 ML INJ CATHETER (16:19)
[2018-11-04 17:58] LABS: AADO2 Arterial 89.8 mmHg (7.0-24.0); Allen Test ACCEPTAB; Arterial Base Excess -2.6 mmol/L (-3.0-3); Arterial Blood Gas Oxygen Sat 94.6 mmHG (95.0-98.0); Arterial COHb 0.1 % (0.0-3.0); Arterial Fraction of Oxyhgb 94.4 % (93.0-99.0); Arterial HCO3 22.8 mmol/L (22.0-26.0); Arterial MetHb 0.1 % (0.0-1.5); Arterial pCO2 42.1 mmhg (35-45); MODE NASAL CANNULA; Site Right Radial
[2018-11-04] MEDS: ATORVASTATIN 20 MG TAB PO (20:10)
[2018-11-04] MEDS: INSULIN GLARGINE [LANTus] (100 UNITS/ML) SYG SC (20:25)
[2018-11-05] MEDS: LEVALBUTEROL (NEB) 1.25 MG/0.5 ML AMP HHN ×6 (01:18→20:19)
[2018-11-05] MEDS: IPRATROPIUM (NEB) 0.5 MG/2.5 ML AMP HHN ×6 (01:18→20:19)
[2018-11-05] MEDS: ACCU-CHEK XX (02:00)
[2018-11-05] MEDS: INSULIN ASPART [NOVOLOG] 3 ML PEN SC ×4 (08:00→20:30)
[2018-11-05 09:26] LABS: ADD MAN DIFF? NO
[2018-11-05 09:30] LABS: BASOPHIL # 0.1 10^3/ul (0.0-0.1); EOSINOPHILS # 0.1 10^3/ul (0.0-0.5); EOSINOPHILS % 1.7 % (0.0-7.0); HEMATOCRIT 33.5 % (42.0-52.0); LYMPHOCYTES # 1.3 10^3/ul (0.8-2.9); MEAN CORPUSCULAR HEMOGLOBIN 31.6 pg (29.0-33.0); MEAN CORPUSCULAR HGB CONC 29.9 g/dl (32.0-37.0); MEAN PLATELET VOLUME 11.7 fl (7.4-10.4); MONOCYTE # 0.5 10^3/ul (0.3-0.9); MONOCYTES % 6.2 % (0.0-11.0); NEUTROPHIL # 5.3 10^3/ul (1.6-7.5); NEUTROPHILS % 72.8 % (39.0-77.0); PLATELET COUNT 136 10^3/UL (140-415); RED BLOOD COUNT 3.16 10^6/ul (4.70-6.10)
[2018-11-05 09:30] LABS: WHITE BLOOD COUNT 7.2 10^3/ul (4.8-10.8)
[2018-11-05 09:47] LABS: ANION GAP 13 (5-13); BLOOD UREA NITROGEN 53 mg/dl (7-20); CALCIUM 9.3 mg/dl (8.4-10.2); CARBON DIOXIDE 25 mmol/L (21-31); CHLORIDE 100 mmol/L (97-110); CREATININE 7.14 mg/dl (0.61-1.24); Estimated GFR 8 mL/min (>60); GLUCOSE 79 mg/dl (70-220); POTASSIUM 4.6 mmol/L (3.5-5.1); SODIUM 138 mmol/L (135-144)
[2018-11-05] MEDS: FOLIC ACID 1 MG TAB PO (10:33)
[2018-11-05] MEDS: METOPROLOL (XL) 25 MG TAB PO (10:33)
[2018-11-05] MEDS: FAMOTIDINE 20 MG INJ IV (10:33)
[2018-11-05] MEDS: APIXABAN 5 MG TABLET PO ×2 (10:33→20:35)
[2018-11-05] MEDS: ALLOPURINOL 300 MG TAB PO (10:33)
[2018-11-05] MEDS: ATORVASTATIN 20 MG TAB PO (20:35)
[2018-11-05] MEDS: SACUBITRIL/VALSARTAN (24mg-26mg) TABLET PO (20:35)
[2018-11-05] MEDS: INSULIN GLARGINE [LANTus] (100 UNITS/ML) SYG SC (20:35)
[2018-11-06] MEDS: LEVALBUTEROL (NEB) 1.25 MG/0.5 ML AMP HHN ×6 (00:50→20:20)
[2018-11-06] MEDS: IPRATROPIUM (NEB) 0.5 MG/2.5 ML AMP HHN ×6 (00:51→20:20)
[2018-11-06] MEDS: ACCU-CHEK XX (02:00)
[2018-11-06 06:27] LABS: ADD MAN DIFF? NO; BASOPHIL # 0.1 10^3/ul (0.0-0.1); BASOPHILS % 1.1 % (0.0-2.0); EOSINOPHILS # 0.3 10^3/ul (0.0-0.5); EOSINOPHILS % 3.8 % (0.0-7.0); HEMATOCRIT 33.9 % (42.0-52.0); HEMOGLOBIN 10.3 g/dl (14.0-18.0); LYMPHOCYTES # 1.4 10^3/ul (0.8-2.9); LYMPHOCYTES % 17.9 % (15.0-51.0); MEAN CORPUSCULAR HEMOGLOBIN 31.9 pg (29.0-33.0); MEAN CORPUSCULAR HGB CONC 30.4 g/dl (32.0-37.0); MONOCYTE # 0.5 10^3/ul (0.3-0.9); MONOCYTES % 6.3 % (0.0-11.0); NEUTROPHIL # 5.6 10^3/ul (1.6-7.5); NEUTROPHILS % 70.4 % (39.0-77.0); PLATELET COUNT 128 10^3/UL (140-415); RED BLOOD COUNT 3.23 10^6/ul (4.70-6.10)
[2018-11-06 07:01] LABS: ANION GAP 15 (5-13); BLOOD UREA NITROGEN 79 mg/dl (7-20); CALCIUM 9.2 mg/dl (8.4-10.2); CARBON DIOXIDE 24 mmol/L (21-31); CHLORIDE 101 mmol/L (97-110); CREATININE 8.79 mg/dl (0.61-1.24); Estimated GFR 6 mL/min (>60); GLUCOSE 117 mg/dl (70-220); SODIUM 140 mmol/L (135-144)
[2018-11-06] MEDS: INSULIN ASPART [NOVOLOG] 3 ML PEN SC ×4 (07:05→21:00)
[2018-11-06] MEDS: APIXABAN 5 MG TABLET PO ×2 (08:25→21:34)
[2018-11-06] MEDS: ALLOPURINOL 300 MG TAB PO (08:25)
[2018-11-06] MEDS: FAMOTIDINE 20 MG TAB PO (08:25)
[2018-11-06] MEDS: FOLIC ACID 1 MG TAB PO (08:26)
[2018-11-06] MEDS: HEPARIN 1000 UNITS/ML 10 ML INJ CATHETER (11:15)
[2018-11-06] MEDS: SACUBITRIL/VALSARTAN (24mg-26mg) TABLET PO ×2 (11:33→21:33)
[2018-11-06] MEDS: METOPROLOL (XL) 25 MG TAB PO (11:33)
[2018-11-06] MEDS: MUPIROCIN 2% 22 GM OINT TOP ×2 (18:17→21:38)
[2018-11-06] MEDS ORDERED: MUPIROCIN 2% 15 GM CR TOP (21:00)
[2018-11-06] MEDS: ATORVASTATIN 20 MG TAB PO (21:33)
[2018-11-06] MEDS: INSULIN GLARGINE [LANTus] (100 UNITS/ML) SYG SC (22:07)
[2018-11-07] MEDS: LEVALBUTEROL (NEB) 1.25 MG/0.5 ML AMP HHN ×6 (01:10→20:36)
[2018-11-07] MEDS: IPRATROPIUM (NEB) 0.5 MG/2.5 ML AMP HHN ×6 (01:10→20:36)
[2018-11-07] MEDS: ACCU-CHEK XX (02:00)
[2018-11-07] MEDS: INSULIN ASPART [NOVOLOG] 3 ML PEN SC ×4 (07:00→21:00)
[2018-11-07 08:44] LABS: ADD MAN DIFF? NO
[2018-11-07 08:47] LABS: WHITE BLOOD COUNT 7.2 10^3/ul (4.8-10.8)
[2018-11-07 08:47] LABS: BASOPHIL # 0.1 10^3/ul (0.0-0.1); EOSINOPHILS # 0.4 10^3/ul (0.0-0.5); EOSINOPHILS % 5.2 % (0.0-7.0); HEMATOCRIT 35.3 % (42.0-52.0); HEMOGLOBIN 10.7 g/dl (14.0-18.0); LYMPHOCYTES # 1.2 10^3/ul (0.8-2.9); LYMPHOCYTES % 17.3 % (15.0-51.0); MEAN CORPUSCULAR HEMOGLOBIN 31.7 pg (29.0-33.0); MEAN CORPUSCULAR HGB CONC 30.3 g/dl (32.0-37.0); MEAN CORPUSCULAR VOLUME 104.4 fl (82.0-101.0); MONOCYTE # 0.5 10^3/ul (0.3-0.9); MONOCYTES % 6.3 % (0.0-11.0); NEUTROPHILS % 69.9 % (39.0-77.0); PLATELET COUNT 130 10^3/UL (140-415); RED BLOOD COUNT 3.38 10^6/ul (4.70-6.10); RED CELL DISTRIBUTION WIDTH 14.6 % (11.5-14.5)
[2018-11-07 08:57] LABS: ANION GAP 12 (5-13); BLOOD UREA NITROGEN 67 mg/dl (7-20); CALCIUM 9.3 mg/dl (8.4-10.2); CARBON DIOXIDE 27 mmol/L (21-31); CHLORIDE 103 mmol/L (97-110); Estimated GFR 7 mL/min (>60); GLUCOSE 124 mg/dl (70-220); POTASSIUM 4.9 mmol/L (3.5-5.1); SODIUM 142 mmol/L (135-144)
[2018-11-07] MEDS: MUPIROCIN 2% 22 GM OINT TOP ×2 (09:00→20:51)
[2018-11-07] MEDS: METOPROLOL (XL) 25 MG TAB PO (09:08)
[2018-11-07] MEDS: FAMOTIDINE 20 MG TAB PO (09:09)
[2018-11-07] MEDS: FOLIC ACID 1 MG TAB PO (09:09)
[2018-11-07] MEDS: SACUBITRIL/VALSARTAN (24mg-26mg) TABLET PO ×2 (09:09→20:51)
[2018-11-07] MEDS: ALLOPURINOL 300 MG TAB PO (09:09)
[2018-11-07] MEDS: APIXABAN 5 MG TABLET PO ×2 (09:09→20:51)
[2018-11-07] MEDS: ATORVASTATIN 20 MG TAB PO (20:51)
[2018-11-07] MEDS: INSULIN GLARGINE [LANTus] (100 UNITS/ML) SYG SC (23:21)
[2018-11-08] MEDS: LEVALBUTEROL (NEB) 1.25 MG/0.5 ML AMP HHN ×6 (00:03→20:00)
[2018-11-08] MEDS: IPRATROPIUM (NEB) 0.5 MG/2.5 ML AMP HHN ×6 (00:03→20:00)
[2018-11-08] MEDS: ACCU-CHEK XX (02:00)
[2018-11-08] MEDS: INSULIN ASPART [NOVOLOG] 3 ML PEN SC ×3 (07:00→18:17)
[2018-11-08] MEDS: HEPARIN 1000 UNITS/ML 10 ML INJ CATHETER (13:00)
[2018-11-08 13:09] LABS: ADD MAN DIFF? NO
[2018-11-08] MEDS: FOLIC ACID 1 MG TAB PO (13:11)
[2018-11-08] MEDS: SEVELAMER CARBONATE 800 MG TABLET PO ×2 (13:11→17:41)
[2018-11-08] MEDS: ALLOPURINOL 300 MG TAB PO (13:12)
[2018-11-08] MEDS: SACUBITRIL/VALSARTAN (24mg-26mg) TABLET PO ×2 (13:12→20:28)
[2018-11-08] MEDS: APIXABAN 5 MG TABLET PO ×2 (13:13→20:28)
[2018-11-08] MEDS: FAMOTIDINE 20 MG TAB PO (13:13)
[2018-11-08 13:14] LABS: WHITE BLOOD COUNT 6.8 10^3/ul (4.8-10.8)
[2018-11-08 13:14] LABS: BASOPHIL # 0.1 10^3/ul (0.0-0.1); BASOPHILS % 0.9 % (0.0-2.0); EOSINOPHILS # 0.5 10^3/ul (0.0-0.5); EOSINOPHILS % 7.9 % (0.0-7.0); HEMATOCRIT 33.4 % (42.0-52.0); HEMOGLOBIN 9.9 g/dl (14.0-18.0); LYMPHOCYTES # 1.1 10^3/ul (0.8-2.9); LYMPHOCYTES % 16.6 % (15.0-51.0); MEAN CORPUSCULAR HGB CONC 29.6 g/dl (32.0-37.0); MEAN CORPUSCULAR VOLUME 104.7 fl (82.0-101.0); MEAN PLATELET VOLUME 12.6 fl (7.4-10.4); MONOCYTE # 0.3 10^3/ul (0.3-0.9); NEUTROPHIL # 4.7 10^3/ul (1.6-7.5); NEUTROPHILS % 69.2 % (39.0-77.0); PLATELET COUNT 129 10^3/UL (140-415); RED BLOOD COUNT 3.19 10^6/ul (4.70-6.10); RED CELL DISTRIBUTION WIDTH 14.9 % (11.5-14.5)
[2018-11-08] MEDS: METOPROLOL (XL) 25 MG TAB PO (13:14)
[2018-11-08] MEDS: MUPIROCIN 2% 22 GM OINT TOP ×2 (13:15→20:28)
[2018-11-08 13:30] LABS: IRON 77 ug/dl (35-150); URIC ACID 5.6 mg/dl (3.1-7.9)
[2018-11-08 13:33] LABS: ANION GAP 15 (5-13); BLOOD UREA NITROGEN 79 mg/dl (7-20); CALCIUM 8.8 mg/dl (8.4-10.2); CARBON DIOXIDE 25 mmol/L (21-31); CHLORIDE 101 mmol/L (97-110); CREATININE 9.25 mg/dl (0.61-1.24); Estimated GFR 6 mL/min (>60); GLUCOSE 147 mg/dl (70-220); POTASSIUM 4.5 mmol/L (3.5-5.1); SODIUM 141 mmol/L (135-144)
[2018-11-08 13:39] LABS: % IRON SATURATION 33 % SAT (22-52); TOTAL IRON BINDING CAPACITY 233 ug/dl (241-421)
[2018-11-08] MEDS: EPOETIN ALFA-EPBX (ESRD) 4,000 UNIT/ML VIAL SC (18:14)
[2018-11-08] MEDS: ATORVASTATIN 20 MG TAB PO (20:28)
[2018-11-08] MEDS: INSULIN GLARGINE [LANTus] (100 UNITS/ML) SYG SC (22:38)
== END 2018-11-08 22:10 | disposition home health service (06) | DRG 291 ==
LOC: 6WM 11-07 00:39 → E/R 06:20 → ICU 12:13
PROC: 5A09557 Assistance with Respiratory Ventilation, Greater than 96 Consecutive Hours, Continuous Positive Airway Pressure (ICD-10-PCS; principal; 2018-11-03)
PROC: 4A133R1 Monitoring of Arterial Saturation, Peripheral, Percutaneous Approach (ICD-10-PCS; 2018-11-03)
PROC: 5A1D70Z Performance of Urinary Filtration, Intermittent, Less than 6 Hours Per Day (ICD-10-PCS; 2018-11-03)
DX: I13.2 Hypertensive heart and chronic kidney disease with heart failure and with stage 5 chronic kidney disease, or end stage renal disease (principal); I50.23 Acute on chronic systolic (congestive) heart failure; N18.6 End stage renal disease; J96.22 Acute and chronic respiratory failure with hypercapnia; J96.21 Acute and chronic respiratory failure with hypoxia; J44.1 Chronic obstructive pulmonary disease with (acute) exacerbation; E66.2 Morbid (severe) obesity with alveolar hypoventilation; G93.40 Encephalopathy, unspecified; E11.22 Type 2 diabetes mellitus with diabetic chronic kidney disease; E87.5 Hyperkalemia; Z68.39 Body mass index [BMI] 39.0-39.9, adult; E78.5 Hyperlipidemia, unspecified; I25.10 Atherosclerotic heart disease of native coronary artery without angina pectoris; I08.1 Rheumatic disorders of both mitral and tricuspid valves; D63.1 Anemia in chronic kidney disease; M10.9 Gout, unspecified; E83.39 Other disorders of phosphorus metabolism; I48.2 Chronic atrial fibrillation; D69.6 Thrombocytopenia, unspecified; I25.5 Ischemic cardiomyopathy; B95.62 Methicillin resistant Staphylococcus aureus infection as the cause of diseases classified elsewhere; Z99.2 Dependence on renal dialysis; Z95.1 Presence of aortocoronary bypass graft; Z79.01 Long term (current) use of anticoagulants; Z86.73 Personal history of transient ischemic attack (TIA), and cerebral infarction without residual deficits
CPT/HCPCS: 36415; 36600; 71045; 80048; 80053; 80061; 82550; 82553; 82607; 82652; 82746; 82803; 82962; 83036; 83540; 83605; 83735; 83880; 84100; 84484; 84560; 85025; 85610; 85730; 87081; 87340; 90935; 93005; 94640; 94644; 94660; 94664; 97162; 99285-25